=== PATIENT | male | born 1965 | race African-American/Black ===

== ENCOUNTER 2020-01-18 16:51 | Emergency (ER) | payer OTHER ==
[~2020-01-18] VITALS: Ht 167.6 cm; Wt 61.2 kg
[2020-01-18 17:00] VITALS: BP 128/98
[2020-01-18 17:10] VITALS: BP 128/98
--- NOTE | 2020-01-18 17:16 | NUR ---
ED Nurse Note: Patient left without being seen
== END 2020-01-18 17:15 | disposition left against medical advice (07) ==
LOC: EDSEX 16:51 → EDBD 16:51 → EMR 17:11
DX: R07.9 Chest pain, unspecified (principal); Z53.21 Procedure and treatment not carried out due to patient leaving prior to being seen by health care provider

== ENCOUNTER 2020-04-01 17:54 | Inpatient (IN) | payer OTHER ==
[~2020-04-01] VITALS: Ht 162.6 cm; Wt 60.8 kg
[2020-04-01] MEDS ORDERED: Cefepime HCl 1 GM in D5W 55 ML IVPB ONE (18:15)
--- NOTE | 2020-04-01 18:34 | Emergency Room Report ---
History of Present Illness General Chief Complaint: Chest Pain Source: Patient Present Illness HPI 53-year-old male with history of asthma, hypertension, diabetes and COPD here complaining of several days of chest pain, shortness of breath. Patient request a wheelchair to be wheeled in upon arrival. Patient is homeless. Obvious respiratory distress noted. Oxygenation within normal limit and patient appears to be afebrile. Speaks in full sentences. Denies abdominal pain, nausea vomiting diarrhea has not taken medication for symptom relief. Allergies: Coded Allergies: No Known Allergies (Unverified , 04/01/20) COVID-19 Screening Contact w/high risk pt: No Recent Travel to affected area: No Experienced COVID-19 symptoms?: Yes COVID-19 symptoms experienced: Cough COVID-19 Testing performed CALF SKINNER: No Patient History Past Medical History: see triage record Past Surgical History: none Pertinent Family History: none Immunizations: UTD Reviewed Nursing Documentation: PMH: Agreed; PSxH: Agreed Nursing Documentation-PMH Hx Hypertension: Yes Hx Asthma: Yes Hx Diabetes: Yes Review of Systems All Other Systems: negative except mentioned in HPI Physical Exam Vital Signs Date Time Temp Pulse Resp B/P (MAP) Pulse Ox O2 Delivery O2 Flow Rate FiO2 04/01/20 18:04 98.6 120 19 103/65 (78) 98 Room Air Sp02 EP Interpretation: reviewed, normal General Appearance: alert, mild distress Head: normocephalic, atraumatic Eyes: bilateral eye normal inspection, bilateral eye PERRL ENT: normal ENT inspection Neck: normal inspection Respiratory: normal inspection Cardiovascular #1: normal inspection Gastrointestinal: normal inspection Genitourinary: normal inspection Musculoskeletal: back normal Neurologic: alert, motor strength/tone normal, oriented x3, sensory intact, responsive, speech normal Psychiatric: judgement/insight normal, memory normal, mood/affect normal, no suicidal/homicidal ideation Skin: no rash Lymphatic: no adenopathy Medical Decision Making PA Attestation All my diagnosis and treatment plans were reviewed ad discussed with my supervising physician Dr. Crawford Diagnostic Impression: Primary Impression: Severe acute respiratory syndrome coronavirus 2 (SARS-CoV-2) infection ruled out Additional Impression: DKA (diabetic ketoacidoses) ER Course 53-year-old male with history of asthma, hypertension, diabetes and COPD here complaining of several days of chest pain, shortness of breath. Patient request a wheelchair to be wheeled in upon arrival. Patient is homeless. Obvious respiratory distress noted. Oxygenation within normal limit and patient appears to be afebrile. Speaks in full sentences. Denies abdominal pain, nausea vomiting diarrhea has not taken medication for symptom relief. Ddx considered but are not limited to: bronchitis, PNA, URI viral, bacterial bronchitis ,Respiratory distress covid rule out, DKA Vital signs: are WNL, pt. is afebrile H&PE are most consistent with: Respiratory distress covid rule out, DKA ORDERS: sepsis set, ED INTERVENTIONS: Cefepime, insulin, NS bolus Patient was admitted with diagnosis of respiratory distress, COVID rule out to Dr. Seo under supervision of : Ty alexis stable at time of admission EKG Diagnostic Results Rate: normal Rhythm: NSR ST Segments: no acute changes Other Impression No acute ST changes Chest X-Ray Diagnostic Results Chest X-Ray Diagnostic Results : Chest X-Ray Ordered: Yes # of Views/Limited/Complete: 1 View Indication: Chest Pain EP Interpretation: Yes PA Xray: Interpretation reviewed, by supervising MD, and agrees with findings. Interpretation: no consolidation, no effusion, no pneumothorax Impression: No acute disease Electronically Signed by: Tres Gillis PA-C Last Vital Signs Date Time Temp Pulse Resp B/P (MAP) Pulse Ox O2 Delivery O2 Flow Rate FiO2 04/01/20 18:04 98.6 120 19 103/65 (78) 98 Room Air Disposition: ADMITTED INPATIENT Condition: Stable Tres Rivera April 01, 2020 18:34
--- NOTE | 2020-04-01 18:45 | NUR ---
ED Nurse Note:pt. came from home with c/o chest pain for long time and SOB, hx of COPD,VSS, A/Ox4 ambulatory, sent blood and covid swab to labs ,given IV antibiotic
--- NOTE | 2020-04-01 18:59 | Diagnostic Imaging Report ---
EXAM: XR Chest, 1 View CLINICAL HISTORY: SOB TECHNIQUE: Frontal view of the chest. COMPARISON: No relevant prior studies available. FINDINGS: Lungs: Unremarkable. No consolidation. Pleural space: Unremarkable. No pneumothorax. Heart: Unremarkable. No cardiomegaly. Mediastinum: Unremarkable. Bones/joints: Unremarkable. IMPRESSION: No acute cardiopulmonary disease.
--- NOTE | 2020-04-01 19:05 | NUR ---
ED Nurse Note: RECEIVED REPORT FROM TOMY DIAZ. PT IS CALM AND RESTING.
[2020-04-01 19:23] LABS: BASOPHILS % (AUTO) 1.8 % (0.0-2.0); HEMATOCRIT 46.3 % (42.0-52.0); LYMPHOCYTES % (AUTO) 14.8 % (20.0-45.0); MEAN CORPUSCULAR VOLUME 92 FL (80-99); MONOCYTES % (AUTO) 4.1 % (1.0-10.0); NEUTROPHILS % (AUTO) 79.3 % (45.0-75.0); PLATELET COUNT 363 K/UL (150-450); RED BLOOD COUNT 5.04 M/UL (4.70-6.10); RED CELL DISTRIBUTION WIDTH 12.4 % (11.6-14.8); WHITE BLOOD COUNT 6.6 K/UL (4.8-10.8)
[2020-04-01 19:34] LABS: INR 0.9 (0.9-1.1); PARTIAL THROMBOPLASTIN TIME 23 SEC (23-33)
[2020-04-01 19:36] VITALS: BP 103/65
[2020-04-01 19:46] LABS: LACTATE DEHYDROGENASE 148 U/L (81-234)
[2020-04-01 19:51] LABS: ANION GAP 17 mmol/L (5-15); BLOOD UREA NITROGEN 32 mg/dL (7-18); CALCIUM 9.4 MG/DL (8.5-10.1); CARBON DIOXIDE 22 MMOL/L (21-32); CHLORIDE 85 MMOL/L (98-107); POTASSIUM 5.5 MMOL/L (3.5-5.1); SODIUM 124 MMOL/L (136-145)
[2020-04-01 19:56] LABS: ALANINE AMINOTRANSFERASE 20 U/L (12-78); ALBUMIN 3.3 G/DL (3.4-5.0); ALBUMIN/GLOBULIN RATIO 0.8 (1.0-2.7); ALKALINE PHOSPHATASE 93 U/L (46-116); ASPARTATE AMINO TRANSFERASE 12 U/L (15-37); BILIRUBIN,TOTAL 0.7 MG/DL (0.2-1.0); CKMB 1.1 NG/ML (0.0-3.6); CREATINE KINASE 57 U/L (26-308); FERRITIN 150 NG/ML (8-388)
[2020-04-01] MEDS ORDERED: Insulin Human Regular 100units/ml 3ml IV ONE (20:30)
--- NOTE | 2020-04-01 20:31 | NUR ---
ED Nurse Note: PT GIVEN INSULIN @ BS 953 FROM LAB. WILL RECHECK BS
[2020-04-01 21:59] VITALS: BP 127/87
--- NOTE | 2020-04-01 21:59 | History and Physical ---
History of Present Illness General Date patient seen: April 01, 2020 Reason for Hospitalization: Chest PainHyperglycemia Present Illness HPI Pt is a 53 YO M with HTN, HLD, DM II, COPD/Asthma presenting with chest pain, and lightheadedness. Patient is a very poor historian and tangential during conversation and unable to provide useful information. He states that he came to the ED today because of chest discomfort. Patient is asked to describe the nature of his chest pain but he continues to complain of how bad the hospital food is and is requesting for warm food. Patient reports taking insulin at home but does not know what kind. She does not know the name of her home medications. She reports of nausea, lightheadedness, and vomiting. No fever, chills, sick contacts or recent travel. On arrival to the ED, vitals significant or HR: 120 and BP: 103/65 and T:100.8. CMP significant for serum g with no evidence of DKA. She is admitted for further observation and medical management. Allergies: Coded Allergies: No Known Allergies (Unverified , 04/01/20) COVID-19 Screening Contact w/high risk pt: No Recent Travel to affected area: No Experienced COVID-19 symptoms?: Yes COVID-19 symptoms experienced: Cough Patient History Healthcare decision maker Resuscitation status Advanced Directive on File Review of Systems Constitutional: Reports: weakness Eye: Reports: no symptoms ENT: Reports: no symptoms Respiratory: Reports: cough, shortness of breath, wheezing Cardiovascular: Reports: chest pain Gastrointestinal: Reports: no symptoms Genitourinary: Reports: no symptoms Musculoskeletal: Reports: no symptoms Skin: Reports: no symptoms Psychiatric: Reports: no symptoms Neurological: Reports: no symptoms Endocrine: Reports: no symptoms Hematologic/Lymphatic: Reports: no symptoms Physical Exam General Appearance: no apparent distress, alert Lines, tubes and drains: peripheral HEENT: normocephalic, atraumatic Neck: non-tender Respiratory/Chest: chest wall non-tender, lungs clear, normal breath sounds, no respiratory distress Cardiovascular/Chest: normal peripheral pulses Abdomen: normal bowel sounds, soft, no organomegaly, no mass Extremities: normal range of motion Skin Exam: normal pigmentation Neurologic: alert, oriented x 3 Last 24 Hour Vital Signs Date Time Temp Pulse Resp B/P (MAP) Pulse Ox O2 Delivery O2 Flow Rate FiO2 04/01/20 19:36 98.6 115 19 103/65 98 Room Air 04/01/20 19:36 115 19 Room Air 04/01/20 18:04 98.6 120 19 103/65 (78) 98 Room Air Laboratory Tests Test 04/01/20 18:00 04/01/20 19:28 White Blood Count 6.6 K/UL (4.8-10.8) Red Blood Count 5.04 M/UL (4.70-6.10) Hemoglobin 15.0 G/DL (14.2-18.0) Hematocrit 46.3 % (42.0-52.0) Mean Corpuscular Volume 92 FL (80-99) Mean Corpuscular Hemoglobin 29.8 PG (27.0-31.0) Mean Corpuscular Hemoglobin Concent 32.5 G/DL (32.0-36.0) Red Cell Distribution Width 12.4 % (11.6-14.8) Platelet Count 363 K/UL (150-450) Mean Platelet Volume 6.7 FL (6.5-10.1) Neutrophils (%) (Auto) 79.3 % (45.0-75.0) H Lymphocytes (%) (Auto) 14.8 % (20.0-45.0) L Monocytes (%) (Auto) 4.1 % (1.0-10.0) Eosinophils (%) (Auto) 0.0 % (0.0-3.0) Basophils (%) (Auto) 1.8 % (0.0-2.0) Prothrombin Time 9.9 SEC (9.30-11.50) Prothromb Time International Ratio 0.9 (0.9-1.1) Activated Partial Thromboplast Time 23 SEC (23-33) D-Dimer < 0.19 mg/L FEU Sodium Level 124 MMOL/L (136-145) L Potassium Level 5.5 MMOL/L (3.5-5.1) H Chloride Level 85 MMOL/L (98-107) L Carbon Dioxide Level 22 MMOL/L (21-32) Anion Gap 17 mmol/L (5-15) H Blood Urea Nitrogen 32 mg/dL (7-18) H Creatinine 2.0 MG/DL (0.55-1.30) H Estimat Glomerular Filtration Rate 42.8 mL/min (>60) Glucose Level 953 MG/DL (74-106) *H Lactic Acid Level 1.80 mmol/L (0.4-2.0) Calcium Level 9.4 MG/DL (8.5-10.1) Ferritin 150 NG/ML (8-388) Total Bilirubin 0.7 MG/DL (0.2-1.0) Aspartate Amino Transf (AST/SGOT) 12 U/L (15-37) L Alanine Aminotransferase (ALT/SGPT) 20 U/L (12-78) Alkaline Phosphatase 93 U/L (46-116) Lactate Dehydrogenase 148 U/L (81-234) Total Creatine Kinase 57 U/L (26-308) Creatine Kinase MB 1.1 NG/ML (0.0-3.6) Creatine Kinase MB Relative Index 1.9 Troponin I 0.000 ng/mL (0.000-0.056) C-Reactive Protein, Quantitative < 0.4 mg/dL (0.00-0.90) Total Protein 7.2 G/DL (6.4-8.2) Albumin 3.3 G/DL (3.4-5.0) L Globulin 3.9 g/dL Albumin/Globulin Ratio 0.8 (1.0-2.7) L Arterial Blood pH 7.353 (7.350-7.450) Arterial Blood Partial Pressure CO2 36.5 mmHg (35.0-45.0) Arterial Blood Partial Pressure O2 94.5 mmHg (75.0-100.0) Arterial Blood HCO3 19.8 mmol/L (22.0-26.0) L Arterial Blood Oxygen Saturation 96.7 % (95-100) Arterial Blood Base Excess -5 (-2-2) L Randall Test Positive Height (Feet): 5 Height (Inches): 4.00 Weight (Pounds): 135 Assessment/Plan Assessment/Plan: Pt is a 53 YO M with HTN, HLD, DM II, COPD/Asthma presenting with chest pain, and lightheadedness. #Type II DM - Uncontrolled #Hyperglycemia #Medication non-compliance -serum g -s/p regular insulin in the ED. -Start insulin SS -Diabetic Diet -IVF -A1c -Importance of medication compliance emphasized. #Pseudohyponatremia -Corrected Na: 140 #[place] -Serum Cr: 2.0 in the setting of hyperglycemia and sepsis -Continue with IVF -Avoid nephrotoxins. -Dr. Seo of nephrology consulted. Appreciate further recommendations. #Atypical CP: -Trop x 1 and ECG unremarkable. -Continue to trend serum cardiac biomarkers -Cardiology consult. #Sepsis - likely 2/2 pulmonary source #Suspected COVID 19 infection #Asthma #COPD exacerbation -T: 100.8, Tachy: 120 -Start Rocephin and Azithromycin -Follow blood cultures -Prednisone 40 MG PO QD x 5 days -ID consultation in the A.M. #Essential hypertension -Metoprol 25 MG PO BID -CTM I spent~72~minutes on this patient's case, and 35~minutes was dedicated to counseling and/or care coordination. Case discussed with the RN. I spent an additional 32~min on chart review including prior consult notes, progress notes, procedures, imaging, labs hemodynamics and clinical documentation. Ramesh Macario M.D. April 01, 2020 21:58
--- NOTE | 2020-04-01 22:00 | NUR ---
ED Nurse Note: PT BS 507. JEANNETTE AWARE
[2020-04-01 22:14] LABS: APPEARANCE,URINE CLEAR; BILIRUBIN, URINE NEGATIVE (NEGATIVE); COLOR,URINE PALE YELLOW; GLUCOSE, URINE (UA) 4+ (NEGATIVE); KETONES,URINE 3+ (NEGATIVE); LEUKOCYTE ESTERASE ,URINE 2+ (NEGATIVE); NITRITE,URINE NEGATIVE (NEGATIVE); PH,URINE 5 (4.5-8.0); PROTEIN,URINE NEGATIVE (NEGATIVE); UROBILINOGEN,URINE NORMAL MG/DL (0.0-1.0)
--- NOTE | 2020-04-01 22:32 | NUR ---
Uzma cordova in [facility] - 04/02/20 at 0009 by [email or web address] ED Nurse Note: gave report to Benita DIAZ
--- NOTE | 2020-04-01 22:32 | NUR ---
ED Nurse Note: GAVE REPORT TO NICO DIAZ. PER NICO, PATIENT CAN GO UP AFTER 10 MIN.
--- NOTE | 2020-04-01 22:35 | NUR ---
ED Nurse Note: repeat blood drawn and sent to lab
--- NOTE | 2020-04-01 22:50 | NUR ---
ED Nurse Note: PT BELONGING INVENTORY COMPLETED AND SIGNED BY PATIENT. PATIENT REFUSED TO SEND $210 BUNN TO HOSPITAL [facility] AND WISHED TO KEEP. PATIENT REFUSED PRIMARY RN FROM DOING FURTHER BELONGING CHECK, STATING "I DO NOT WANT TO SHOW YOU INSIDE MY BAG"
[2020-04-01 23:00] VITALS: BP 135/88
--- NOTE | 2020-04-01 23:05 | NUR ---
TRANSFER TO FLOOR: Patient transferred to [facility] via rney in stable condition via transport 19 protocol as ordered, per dr. Hoskins . Report given to April DIAZ. Belongings sent with patient
[2020-04-01 23:09] LABS: ALANINE AMINOTRANSFERASE 21 U/L (12-78); ALBUMIN/GLOBULIN RATIO 0.9 (1.0-2.7); ALKALINE PHOSPHATASE 85 U/L (46-116); ANION GAP 11 mmol/L (5-15); ASPARTATE AMINO TRANSFERASE 12 U/L (15-37); BILIRUBIN,TOTAL 0.4 MG/DL (0.2-1.0); BLOOD UREA NITROGEN 26 mg/dL (7-18); CALCIUM 8.5 MG/DL (8.5-10.1); CARBON DIOXIDE 27 MMOL/L (21-32); CHLORIDE 96 MMOL/L (98-107); CREATININE 1.7 MG/DL (0.55-1.30); POTASSIUM 3.9 MMOL/L (3.5-5.1); SODIUM 134 MMOL/L (136-145)
--- NOTE | 2020-04-01 23:15 | NUR ---
NURSE NOTES: ADMITTED 53 YEAR OLD MALE TO ROOM 202 BED 2 VIA GURNEY FROM EMERGENCY DEPARTMENT. ADMITTING DIAGNOSIS/RESPIRATORY DISTRESS, COVID RULE OUT, UNDER THE CARE OF DR. CASTREJON. PATIENT AWAKE, VERBALLY RESPONSIVE, COMPLAINING OF PAIN ALL OVER/GENERALIZED 8/10. IV INTACT TO LEFT AC/GAUGE 20, NO REDNESS/SWELLING NOTED. NO SIGNS AND SYMPTOMS OF ACUTE CARDIO RESPIRATORY DISTRESS/SHORTNESS OF BREATH, DENIES CHEST PAIN, PLACED ON COUNTERSINKER. ABDOMEN SOFT/NON DISTENDED, AUDIBLE BOWEL SOUNDS, CONTINENT OF B/B, URINAL PROVIDED. ASSISTED WITH COMFORT CARE/ORIENTED TO ROOM/ENVIRONMENT. SIDE RAILS UP X2 FOR MOBILITY, BED IN LOWEST POSITION FOR SAFETY, ENCOURAGED PATIENT TO UTILIZE CALL LIGHT FOR ASSISTANCE. NAD.
[2020-04-02] VITALS: BP 115/69
[2020-04-02] MEDS ORDERED: Albuterol 90mcg Inhaler 8gm INH PRN (00:45)
[2020-04-02] MEDS ORDERED: Ipratropium Bromide Inhaler INH PRN (00:45)
[2020-04-02] MEDS ORDERED: Insulin Human Regular 100units/ml 3ml SUBQ SCH (00:45)
--- NOTE | 2020-04-02 01:10 | NUR ---
NURSE NOTES: DR. ELLIOTT CALLED WITH ADMITTING ORDERS, ORDERS NOTED AND CARRIED OUT..
[2020-04-02] MEDS ORDERED: Azithromycin 500 MG in D5W 275 ML IV ONE (01:15)
[2020-04-02] MEDS ORDERED: NovoLOG Insulin Flexpen SUBQ SCH (01:30)
[2020-04-02] MEDS: HYDROcodone/Acetamin 5/325 tab ORAL PRN (02:29)
[2020-04-02] MEDS: cefTRIAXone 1 GM in D5W 55 ML IVPB SCH (02:41)
--- NOTE | 2020-04-02 03:05 | NUR ---
NURSE NOTES: PATIENT REFUSED NORCO, WASTED WITH CHARGE NURSE.
[2020-04-02 04:00] VITALS: BP 123/85
[2020-04-02] MEDS: NovoLOG Insulin Flexpen SUBQ SCH ×4 (06:30→21:00)
--- NOTE | 2020-04-02 06:36 | NUR ---
NURSE NOTES: RESTING WELL, NO SIGNIFICANT CHANGE OF CONDITION NOTED THROUGHOUT THE NIGHT. SAFETY MAINTAINED. NAD.
--- NOTE | 2020-04-02 07:00 | NUR ---
NURSE NOTES: IV ANTIBIOTIC STARTED AT 0240, IV SITE LEFT AC/GAUGE 20, PATIENT BENDING ARM, REFUSE TO KEEP STRAIGHTENED, MULTIPLE VERBAL INTERVENTIONS FROM PRIMARY AND CHARGE NURSE-IV ANTIBIOTIC CONTINUE TO INFUSE AT 0700, PATIENT NOTED WITH EXCELLENT VEINS, MULTIPLE ATTEMPTS TO RESITE IV, PATIENT REFUSE, MD NOTIFIED. PATIENT ALSO NON COMPLIANT WITH BLOOD DRAW FROM PRIMARY NURSE AND GAS ENGINE OPERATOR GENERATORS, MADE AWARE.
--- NOTE | 2020-04-02 07:30 | NUR ---
HAND-OFF: Report given to JOE GREENFIELD.
--- NOTE | 2020-04-02 07:45 | NUR ---
NURSE NOTES: Received report from ADA Chen. Patient in bed resting, no active s/s cardiac, respiratory distress noticed at this time. Patient AOx3, on room air, IV on right AC 20G, asymptomatic, patent, intact. MD at the bedside, made aware patient refused EKG and lab at this time, will try again. Bed in lowest position, side rails upx2, call light within reach, bed alarm on. Will continue to monitor.
[2020-04-02 08:00] VITALS: BP 140/87
[2020-04-02] MEDS: Heparin 5000 units/ml inj SUBQ SCH ×2 (09:54→21:00)
--- NOTE | 2020-04-02 10:26 | General Progress Note ---
Assessment/Plan Assessment/Plan: Assessment #COPD Exacerbation; CXR w/o obvious infiltrate #R/O COVID, pending predictive markers #HHS w/ associated Osmotic Diuresis and Hypovolemia/Hyponatremia #Acute Renal Failure 2/2 Dehydration #HTN #Homelessness Plan Pending COVID, obtain predictive markers ( CRP, Ferritin, LDH, Ddimer) Prednisone PO taper Lynch Cx Weight based insulin dosing, goal blood sugar less than 180 while inpatient, insulin long acting Levemir PRN BP meds for now , once renal function improves add Dmitry-Inhibitor for renal protection NS @ 75 cc/hr s/p aggressive bolus in ER Social Work Consult DVT ppx Diet Subjective Allergies: Coded Allergies: No Known Allergies (Unverified , 04/01/20) Subjective Patient agitated; stating he is being "harrassed." Earlier was refusing insulin , agreed to receive IV. Still with elevated Blood sugar. Objective Last 24 Hour Vital Signs Date Time Temp Pulse Resp B/P (MAP) Pulse Ox O2 Delivery O2 Flow Rate FiO2 04/02/20 09:20 116 140/87 04/02/20 08:00 97.0 116 19 140/87 (104) 96 04/02/20 08:00 125 04/02/20 04:00 99.0 117 19 123/85 (98) 98 04/02/20 04:00 116 04/02/20 00:45 127 115/69 04/02/20 00:00 100.8 123 22 115/69 (84) 98 04/02/20 00:00 127 04/01/20 23:37 Room Air 04/01/20 23:05 98.5 121 18 135/88 99 Room Air 04/01/20 23:00 98.5 121 18 135/88 99 Room Air 04/01/20 21:59 98.3 117 19 127/87 98 Room Air 04/01/20 19:36 98.6 115 19 103/65 98 Room Air 04/01/20 19:36 115 19 Room Air 04/01/20 18:04 98.6 120 19 103/65 (78) 98 Room Air Intake and Output 04/01/20 04/02/20 19:00 07:00 Intake Total 1130 ml Balance 1130 ml Intake Oral 1000 ml IV Total 130 ml # Voids 5 Laboratory Tests 04/01/20 18:00: White Blood Count 6.6, Red Blood Count 5.04, Hemoglobin 15.0, Hematocrit 46.3, Mean Corpuscular Volume 92, Mean Corpuscular Hemoglobin 29.8, Mean Corpuscular Hemoglobin Concent 32.5, Red Cell Distribution Width 12.4, Platelet Count 363, Mean Platelet Volume 6.7, Neutrophils (%) (Auto) 79.3H, Lymphocytes (%) (Auto) 14.8L, Monocytes (%) (Auto) 4.1, Eosinophils (%) (Auto) 0.0, Basophils (%) (Auto ) 1.8, Prothrombin Time 9.9, Prothromb Time International Ratio 0.9, Activated Partial Thromboplast Time 23, D-Dimer < 0.19, Sodium Level 124L, Potassium Level 5.5H, Chloride Level 85L, Carbon Dioxide Level 22, Anion Gap 17H, Blood Urea Nitrogen 32H, Creatinine 2.0H, Estimat Glomerular Filtration Rate 42.8, Glucose Level 953*H, Lactic Acid Level 1.80, Calcium Level 9.4, Ferritin 150, Total Bilirubin 0.7, Aspartate Amino Transf (AST/SGOT) 12L, Alanine Aminotransferase (ALT/SGPT) 20, Alkaline Phosphatase 93, Lactate Dehydrogenase 148, Total Creatine Kinase 57, Creatine Kinase MB 1.1, Creatine Kinase MB Relative Index 1.9, Troponin I 0.000, C-Reactive Protein, Quantitative < 0.4, Total Protein 7.2, Albumin 3.3L, Globulin 3.9, Albumin/Globulin Ratio 0.8L 04/01/20 19:28: Arterial Blood pH 7.353, Arterial Blood Partial Pressure CO2 36.5, Arterial Blood Partial Pressure O2 94.5, Arterial Blood HCO3 19.8L, Arterial Blood Oxygen Saturation 96.7, Arterial Blood Base Excess -5L, Randall Test Positive 04/01/20 21:50: Urine Color Pale yellow, Urine Appearance Clear, Urine pH 5, Urine Specific [place] 1.010, Urine Protein Negative, Urine Glucose (UA) 4+H, Urine Ketones 3+H , Urine Blood Negative, Urine Nitrite Negative, Urine Bilirubin Negative, Urine Urobilinogen Normal, Urine Leukocyte Esterase 2+H, Urine RBC 0-2H, Urine WBC 0-2 , Urine Squamous Epithelial Cells None, Urine Bacteria Occasional, Urine Yeast ModerateH 04/01/20 22:35: Sodium Level 134#L, Potassium Level 3.9, Chloride Level 96L, Carbon Dioxide Level 27, Anion Gap 11, Blood Urea Nitrogen 26H, Creatinine 1.7H, Estimat Glomerular Filtration Rate 51.5, Glucose Level 521#*H, Calcium Level 8.5, Total Bilirubin 0.4, Aspartate Amino Transf (AST/SGOT) 12L, Alanine Aminotransferase ( ALT/SGPT) 21, Alkaline Phosphatase 85, Total Protein 6.5, Albumin 3.0L, Globulin 3.5, Albumin/Globulin Ratio 0.9L Height (Feet): 5 Height (Inches): 4.00 Weight (Pounds): 135 Marie Shoemaker D.O. April 02, 2020 10:26
--- NOTE | 2020-04-02 10:38 | NUR ---
CASE MANAGEMENT: INITIAL REVIEW 53YR OLD MALE WALKED INTO ER CC: CHEST PAIN AND COUCH X1 WEEK; SOB PMH: COPD; ASTHMA ; DM SI:SEVERE ACUTE RESPIRATORY SYNDROME 2 SARS-COV-2 INFECTION R/O . DKA . TACHY . 98.6 120 19 103/65 98% ON RA BGLU: 953 2ND BGLU 507 K+ 5.5 NA 124 CL 85 BUN/CREAT 32/2.0 GFR 42.8 AST 12 ABG: HCO3 19.8 UA- KETONES+BLOOD+ YEAST+ GLUCOSE+ IS:IVF NS BOLUS X2 IV NOVOLIN R X1 IV CEFEPIME X1 XRAY Chest 1v- No acute cardiopulmonary disease. COVID-19 - URINE CX- BLOOD CX X2- \: 2E TELE UNIT DCP: POSSIBLE HOMELESS PLAN: SW CONSULT TACHY- CONTROL HR CASE MANAGEMENT: REVIEW 04/02/20 SI:SEVERE ACUTE RESPIRATORY SYNDROME 2 SARS-COV-2 INFECTION R/O . DKA . TACHY . 100.8 123 22 115/69 98% ON RA BGLU: 953 2ND BGLU 507 K+ 5.5 NA 124 CL 85 BUN/CREAT 32/2.0 GFR 42.8 AST 12 IS:IV ROCEPHIN QD IV NS @75ML/HR NOVOLOG SQ QAC/HS PREDNISONE PO QD X5 DOSES LOPRESSOR PO BID HEPARIN SQ BID \: 2E TELE UNIT PLAN: TACHY- CONTROL HR CONTROL FEVER COVID 19 PENDING FOR DISCHARGE PLANNING
[2020-04-02] MEDS ORDERED: Levemir Flexpen SUBQ SCH (11:00)
--- NOTE | 2020-04-02 11:16 | Infectious Diseases Prog Note ---
Assessment/Plan Assessment/Plan Full consult to follow: A) 1) ? covid-19 virus infection, fevers 2) ? CAP - chest x-ray negative 3) CP 4) SOB P) 1) agree with ceftriaxone and azithromycin 2) f/u on covid19 pcr testing, f/u chest x-ray 3) thank you Subjective Allergies: Coded Allergies: No Known Allergies (Unverified , 04/01/20) Objective Vital Signs Last 24 Hour Vital Signs Date Time Temp Pulse Resp B/P (MAP) Pulse Ox O2 Delivery O2 Flow Rate FiO2 04/02/20 09:20 116 140/87 04/02/20 08:00 97.0 116 19 140/87 (104) 96 04/02/20 08:00 125 04/02/20 04:00 99.0 117 19 123/85 (98) 98 04/02/20 04:00 116 04/02/20 00:45 127 115/69 04/02/20 00:00 100.8 123 22 115/69 (84) 98 04/02/20 00:00 127 04/01/20 23:37 Room Air 04/01/20 23:05 98.5 121 18 135/88 99 Room Air 04/01/20 23:00 98.5 121 18 135/88 99 Room Air 04/01/20 21:59 98.3 117 19 127/87 98 Room Air 04/01/20 19:36 98.6 115 19 103/65 98 Room Air 04/01/20 19:36 115 19 Room Air 04/01/20 18:04 98.6 120 19 103/65 (78) 98 Room Air Height (Feet): 5 Height (Inches): 4.00 Weight (Pounds): 135 Microbiology Date/Time Source Procedure Growth Status 04/01/20 21:50 Urine,Clean Catch Urine Culture - Preliminary NO GROWTH Resulted Laboratory Tests Test 04/01/20 18:00 04/01/20 19:28 04/01/20 21:50 04/01/20 22:35 White Blood Count 6.6 K/UL (4.8-10.8) Red Blood Count 5.04 M/UL (4.70-6.10) Hemoglobin 15.0 G/DL (14.2-18.0) Hematocrit 46.3 % (42.0-52.0) Mean Corpuscular Volume 92 FL (80-99) Mean Corpuscular Hemoglobin 29.8 PG (27.0-31.0) Mean Corpuscular Hemoglobin Concent 32.5 G/DL (32.0-36.0) Red Cell Distribution Width 12.4 % (11.6-14.8) Platelet Count 363 K/UL (150-450) Mean Platelet Volume 6.7 FL (6.5-10.1) Neutrophils (%) (Auto) 79.3 % (45.0-75.0) H Lymphocytes (%) (Auto) 14.8 % (20.0-45.0) L Monocytes (%) (Auto) 4.1 % (1.0-10.0) Eosinophils (%) (Auto) 0.0 % (0.0-3.0) Basophils (%) (Auto) 1.8 % (0.0-2.0) Prothrombin Time 9.9 SEC (9.30-11.50) Prothromb Time International Ratio 0.9 (0.9-1.1) Activated Partial Thromboplast Time 23 SEC (23-33) D-Dimer < 0.19 mg/L FEU Sodium Level 124 MMOL/L (136-145) L 134 MMOL/L (136-145) #L Potassium Level 5.5 MMOL/L (3.5-5.1) H 3.9 MMOL/L (3.5-5.1) Chloride Level 85 MMOL/L (98-107) L 96 MMOL/L (98-107) L Carbon Dioxide Level 22 MMOL/L (21-32) 27 MMOL/L (21-32) Anion Gap 17 mmol/L (5-15) H 11 mmol/L (5-15) Blood Urea Nitrogen 32 mg/dL (7-18) H 26 mg/dL (7-18) H Creatinine 2.0 MG/DL (0.55-1.30) H 1.7 MG/DL (0.55-1.30) H Estimat Glomerular Filtration Rate 42.8 mL/min (>60) 51.5 mL/min (>60) Glucose Level 953 MG/DL (74-106) *H 521 MG/DL (74-106) #*H Lactic Acid Level 1.80 mmol/L (0.4-2.0) Calcium Level 9.4 MG/DL (8.5-10.1) 8.5 MG/DL (8.5-10.1) Ferritin 150 NG/ML (8-388) Total Bilirubin 0.7 MG/DL (0.2-1.0) 0.4 MG/DL (0.2-1.0) Aspartate Amino Transf (AST/SGOT) 12 U/L (15-37) L 12 U/L (15-37) L Alanine Aminotransferase (ALT/SGPT) 20 U/L (12-78) 21 U/L (12-78) Alkaline Phosphatase 93 U/L (46-116) 85 U/L (46-116) Lactate Dehydrogenase 148 U/L (81-234) Total Creatine Kinase 57 U/L (26-308) Creatine Kinase MB 1.1 NG/ML (0.0-3.6) Creatine Kinase MB Relative Index 1.9 Troponin I 0.000 ng/mL (0.000-0.056) C-Reactive Protein, Quantitative < 0.4 mg/dL (0.00-0.90) Total Protein 7.2 G/DL (6.4-8.2) 6.5 G/DL (6.4-8.2) Albumin 3.3 G/DL (3.4-5.0) L 3.0 G/DL (3.4-5.0) L Globulin 3.9 g/dL 3.5 g/dL Albumin/Globulin Ratio 0.8 (1.0-2.7) L 0.9 (1.0-2.7) L Arterial Blood pH 7.353 (7.350-7.450) Arterial Blood Partial Pressure CO2 36.5 mmHg (35.0-45.0) Arterial Blood Partial Pressure O2 94.5 mmHg (75.0-100.0) Arterial Blood HCO3 19.8 mmol/L (22.0-26.0) L Arterial Blood Oxygen Saturation 96.7 % (95-100) Arterial Blood Base Excess -5 (-2-2) L Randall Test Positive Urine Color Pale yellow Urine Appearance Clear Urine pH 5 (4.5-8.0) Urine Specific [place] 1.010 (1.005-1.035) Urine Protein Negative (NEGATIVE) Urine Glucose (UA) 4+ (NEGATIVE) H Urine Ketones 3+ (NEGATIVE) H Urine Blood Negative (NEGATIVE) Urine Nitrite Negative (NEGATIVE) Urine Bilirubin Negative (NEGATIVE) Urine Urobilinogen Normal MG/DL (0.0-1.0) Urine Leukocyte Esterase 2+ (NEGATIVE) H Urine RBC 0-2 /HPF (0 - 0) H Urine WBC 0-2 /HPF (0 - 0) Urine Squamous Epithelial Cells None /LPF (NONE/OCC) Urine Bacteria Occasional /HPF (NONE) Urine Yeast Moderate /HPF (NONE) H Current Medications Medications (Trade) Dose Ordered Sig/Alejandra Route PRN Reason Start Time Stop Time Status Last Admin Dose Admin Acetaminophen (Tylenol) 650 mg Q6H PRN ORAL Mild Pain (Pain Scale 1-3) 04/02/20 00:45 05/02/20 00:44 Acetaminophen (Tylenol) 650 mg Q6H PRN ORAL Temp >100.5 04/02/20 00:45 05/02/20 00:44 Acetaminophen/ Hydrocodone Bitart ([place] 5/325) 1 tab Q6H PRN ORAL For Pain 04/02/20 00:45 04/09/20 00:44 Albuterol Sulfate (Proventil MDI) 2 puff Q8H PRN INH Shortness of Breath 04/02/20 00:45 07/01/20 00:44 Azithromycin 250 mg/Dextrose 275 ml @ 275 mls/hr Q24H IV 04/03/20 01:00 04/08/20 00:59 Ceftriaxone Sodium 1 gm/ Dextrose 55 ml @ 110 mls/hr Q24H IVPB 04/02/20 02:00 04/06/20 01:59 04/02/20 02:41 Dextrose (Dextrose 50%) 25 ml Q30M PRN IV Hypoglycemia 04/02/20 00:45 07/01/20 00:44 Dextrose (Dextrose 50%) 50 ml Q30M PRN IV Hypoglycemia 04/02/20 00:45 07/01/20 00:44 Heparin Sodium (Porcine) (Heparin 5000 units/ml) 5,000 units EVERY 12 HOURS SUBQ 04/02/20 09:00 05/17/20 08:59 04/02/20 09:54 Insulin Aspart (NovoLOG) BEFORE MEALS AND HS SUBQ 04/02/20 06:30 07/01/20 06:29 04/02/20 06:30 Insulin Detemir (Levemir) 18 units DAILY SUBQ 04/02/20 11:00 07/01/20 10:59 Ipratropium [place] (Atrovent Inh) 2 puffs Q8H PRN INH WHEEZING 04/02/20 00:45 05/02/20 00:44 Metoprolol Tartrate (Lopressor) 25 mg Q12HR ORAL 04/02/20 09:00 07/01/20 08:59 04/02/20 09:20 Prednisone (predniSONE) 10 mg DAILY ORAL 04/03/20 09:00 05/03/20 08:59 Sodium Chloride 1,000 ml @ 75 mls/hr [id number] IV 04/02/20 00:45 05/02/20 00:44 04/02/20 00:45 Liv Galloway MD April 02, 2020 11:16
[2020-04-02 12:00] VITALS: BP 124/83
--- NOTE | 2020-04-02 12:00 | Consultation ---
DATE OF CONSULTATION: 04/02/2020 PULMONARY CONSULTATION CONSULTING PHYSICIAN: Star Baxter MD. HISTORY OF PRESENT ILLNESS: This is a 53-year-old male, who was admitted to the hospital with shortness of breath. He is a homeless male with history of COPD and asthma, who came to the hospital with shortness of breath and chest pain. The patient also requested a wheelchair on arrival. He was admitted to the hospital for subsequent management and care. PAST MEDICAL HISTORY: Notable for COPD, homeless situation, hyperglycemia, renal failure, hypertension. CURRENT MEDICATIONS: Reviewed and reconciled. He is currently on prednisone, metoprolol, insulin, IV fluids, antibiotics. REVIEW OF SYSTEMS: Denies any headaches, hematemesis, melena, or hematochezia. PHYSICAL EXAMINATION: VITAL SIGNS: Blood pressure is 140/80, heart rate 110, respiratory rate 18, afebrile. GENERAL: Reveals a 53-year-old male. HEENT: Unremarkable. CHEST: Clear breath sounds bilaterally. ABDOMEN: Soft. EXTREMITIES: There is no edema. NEUROLOGIC: Nonfocal. LABORATORY DATA: Laboratory testing at this time shows normal CBC with BMP showing sodium 134, creatinine is 1.7, today glucose 521. IMPRESSION: 1. Exacerbation of COPD. 2. Hyperglycemia. 3. Hypertension. 4. Homeless. 5. Renal failure. DISCUSSION: We will decrease steroids rapidly given his hyperglycemia. We will follow as corrugator. Order oxygen. Pulmonary hygiene. Rule out COVID-19. We will follow. Star Baxter M.D. DR: YUNG JOB#: [id number] CC:
--- NOTE | 2020-04-02 12:10 | NUR ---
NURSE NOTES: Patient blood sugar checked 576, explained BS very high need insulin. After given Levemir, patient refused to get Novolog. Patient agitated, threatening staff members to get out of the room.
--- NOTE | 2020-04-02 12:35 | NUR ---
NURSE NOTES: Paged Dr. Shoemaker regarding blood sugar level, per NPO at this time until patient gets treatment. MD made aware patient refusing EKG, monitoring tech, Lab. Per 6 unit insulin IV once, re-check BS in one hour. Order noted, entered, carried out. Will continue to monitor.
[2020-04-02] MEDS: Insulin Human Regular 100units/ml 3ml IV ONE ×2 (13:00→13:28)
--- NOTE | 2020-04-02 13:46 | NUR ---
NURSE NOTES: 2 RN , CN tried, patient refused IVP insulin. Will page Dr. Shoemaker.
--- NOTE | 2020-04-02 14:09 | Cardiac Electrophysiology PN ---
Subjective Subjective Seen and examined Objective Last 24 Hour Vital Signs Date Time Temp Pulse Resp B/P (MAP) Pulse Ox O2 Delivery O2 Flow Rate FiO2 04/02/20 09:20 116 140/87 04/02/20 09:00 Room Air 04/02/20 08:00 97.0 116 19 140/87 (104) 96 04/02/20 08:00 125 04/02/20 04:00 99.0 117 19 123/85 (98) 98 04/02/20 04:00 116 04/02/20 00:45 127 115/69 04/02/20 00:00 100.8 123 22 115/69 (84) 98 04/02/20 00:00 127 04/01/20 23:37 Room Air 04/01/20 23:05 98.5 121 18 135/88 99 Room Air 04/01/20 23:00 98.5 121 18 135/88 99 Room Air 04/01/20 21:59 98.3 117 19 127/87 98 Room Air 04/01/20 19:36 98.6 115 19 103/65 98 Room Air 04/01/20 19:36 115 19 Room Air 04/01/20 18:04 98.6 120 19 103/65 (78) 98 Room Air Intake and Output 04/01/20 04/02/20 19:00 07:00 Intake Total 1130 ml Balance 1130 ml Intake Oral 1000 ml IV Total 130 ml # Voids 5 Laboratory Tests Test 04/01/20 18:00 04/01/20 19:28 04/01/20 21:50 04/01/20 22:35 White Blood Count 6.6 K/UL (4.8-10.8) Red Blood Count 5.04 M/UL (4.70-6.10) Hemoglobin 15.0 G/DL (14.2-18.0) Hematocrit 46.3 % (42.0-52.0) Mean Corpuscular Volume 92 FL (80-99) Mean Corpuscular Hemoglobin 29.8 PG (27.0-31.0) Mean Corpuscular Hemoglobin Concent 32.5 G/DL (32.0-36.0) Red Cell Distribution Width 12.4 % (11.6-14.8) Platelet Count 363 K/UL (150-450) Mean Platelet Volume 6.7 FL (6.5-10.1) Neutrophils (%) (Auto) 79.3 % (45.0-75.0) H Lymphocytes (%) (Auto) 14.8 % (20.0-45.0) L Monocytes (%) (Auto) 4.1 % (1.0-10.0) Eosinophils (%) (Auto) 0.0 % (0.0-3.0) Basophils (%) (Auto) 1.8 % (0.0-2.0) Prothrombin Time 9.9 SEC (9.30-11.50) Prothromb Time International Ratio 0.9 (0.9-1.1) Activated Partial Thromboplast Time 23 SEC (23-33) D-Dimer < 0.19 mg/L FEU Sodium Level 124 MMOL/L (136-145) L 134 MMOL/L (136-145) #L Potassium Level 5.5 MMOL/L (3.5-5.1) H 3.9 MMOL/L (3.5-5.1) Chloride Level 85 MMOL/L (98-107) L 96 MMOL/L (98-107) L Carbon Dioxide Level 22 MMOL/L (21-32) 27 MMOL/L (21-32) Anion Gap 17 mmol/L (5-15) H 11 mmol/L (5-15) Blood Urea Nitrogen 32 mg/dL (7-18) H 26 mg/dL (7-18) H Creatinine 2.0 MG/DL (0.55-1.30) H 1.7 MG/DL (0.55-1.30) H Estimat Glomerular Filtration Rate 42.8 mL/min (>60) 51.5 mL/min (>60) Glucose Level 953 MG/DL (74-106) *H 521 MG/DL (74-106) #*H Lactic Acid Level 1.80 mmol/L (0.4-2.0) Calcium Level 9.4 MG/DL (8.5-10.1) 8.5 MG/DL (8.5-10.1) Ferritin 150 NG/ML (8-388) Total Bilirubin 0.7 MG/DL (0.2-1.0) 0.4 MG/DL (0.2-1.0) Aspartate Amino Transf (AST/SGOT) 12 U/L (15-37) L 12 U/L (15-37) L Alanine Aminotransferase (ALT/SGPT) 20 U/L (12-78) 21 U/L (12-78) Alkaline Phosphatase 93 U/L (46-116) 85 U/L (46-116) Lactate Dehydrogenase 148 U/L (81-234) Total Creatine Kinase 57 U/L (26-308) Creatine Kinase MB 1.1 NG/ML (0.0-3.6) Creatine Kinase MB Relative Index 1.9 Troponin I 0.000 ng/mL (0.000-0.056) C-Reactive Protein, Quantitative < 0.4 mg/dL (0.00-0.90) Total Protein 7.2 G/DL (6.4-8.2) 6.5 G/DL (6.4-8.2) Albumin 3.3 G/DL (3.4-5.0) L 3.0 G/DL (3.4-5.0) L Globulin 3.9 g/dL 3.5 g/dL Albumin/Globulin Ratio 0.8 (1.0-2.7) L 0.9 (1.0-2.7) L Arterial Blood pH 7.353 (7.350-7.450) Arterial Blood Partial Pressure CO2 36.5 mmHg (35.0-45.0) Arterial Blood Partial Pressure O2 94.5 mmHg (75.0-100.0) Arterial Blood HCO3 19.8 mmol/L (22.0-26.0) L Arterial Blood Oxygen Saturation 96.7 % (95-100) Arterial Blood Base Excess -5 (-2-2) L Randall Test Positive Urine Color Pale yellow Urine Appearance Clear Urine pH 5 (4.5-8.0) Urine Specific [place] 1.010 (1.005-1.035) Urine Protein Negative (NEGATIVE) Urine Glucose (UA) 4+ (NEGATIVE) H Urine Ketones 3+ (NEGATIVE) H Urine Blood Negative (NEGATIVE) Urine Nitrite Negative (NEGATIVE) Urine Bilirubin Negative (NEGATIVE) Urine Urobilinogen Normal MG/DL (0.0-1.0) Urine Leukocyte Esterase 2+ (NEGATIVE) H Urine RBC 0-2 /HPF (0 - 0) H Urine WBC 0-2 /HPF (0 - 0) Urine Squamous Epithelial Cells None /LPF (NONE/OCC) Urine Bacteria Occasional /HPF (NONE) Urine Yeast Moderate /HPF (NONE) H Microbiology Date/Time Source Procedure Growth Status 04/01/20 21:50 Urine,Clean Catch Urine Culture - Preliminary NO GROWTH Resulted Dirk Velazquez MD April 02, 2020 14:09
--- NOTE | 2020-04-02 14:15 | NUR ---
NURSE NOTES: Dr. Shoemaker and Dr. Velazquez at the nursing station, made aware patient refused medication, all procedure, lab. No new order received at this time. Will continue to monitor.
[2020-04-02] MEDS ORDERED: Insulin Human Regular 100units/ml 3ml IV SCH (15:15)
[2020-04-02 16:00] VITALS: BP 132/80
--- NOTE | 2020-04-02 16:00 | NUR ---
NURSE NOTES: Patient refused to be taking care of by his previous nurse so I took over, Patient still refusing nursing care. Md put him on NPO because of his high sugar, Patient stated he is not taking any medication until he gets his food.
--- NOTE | 2020-04-02 16:00 | NUR ---
HAND-OFF: Report given to JOE Ny. Endorsed plan of care.
--- NOTE | 2020-04-02 17:00 | NUR ---
NURSE NOTES: Patient BS is 523, Gave him Insulin, Paged MD, awaiting hydroelectric station operator back.
--- NOTE | 2020-04-02 19:34 | NUR ---
HAND-OFF: Report given to Stephanie/RN, Patient is in stable condition, Endorsed plan of care.
--- NOTE | 2020-04-02 19:50 | NUR ---
NURSE NOTES: Received pt from JOE Staples. pt asleep but easily arroused. Bed in lowest position. Call light within reach. Will continue to monitor.
[2020-04-02 20:29] VITALS: BP 114/77
[2020-04-03] VITALS: BP 119/68
[2020-04-03] MEDS ORDERED: Azithromycin 250 MG in D5W 275 ML IV SCH (01:00)
[2020-04-03] MEDS: cefTRIAXone 1 GM in D5W 55 ML IVPB SCH (02:00)
--- NOTE | 2020-04-03 03:23 | NUR ---
NURSE NOTES: Called and notified Dr. Hoskins and Dr. Berger about pts refusal for IV and IV antibiotics via voicemail. Awaiting call back.
[2020-04-03] MEDS: NovoLOG Insulin Flexpen SUBQ SCH ×6 (06:30→20:42)
--- NOTE | 2020-04-03 07:17 | NUR ---
NURSE NOTES: Called and left a callback number with Dr. Hoskins group regarding pts critically high BG. Awaiting call back. Pt asymptomatic
--- NOTE | 2020-04-03 07:30 | NUR ---
HAND-OFF: Report given to JOE Fortune. Pt stable.
[2020-04-03 07:53] LABS: BASOPHILS % (AUTO) 2.3 % (0.0-2.0); EOSINOPHILS % (AUTO) 0.4 % (0.0-3.0); HEMATOCRIT 45.4 % (42.0-52.0); HEMOGLOBIN 16.1 G/DL (14.2-18.0); LYMPHOCYTES % (AUTO) 26.9 % (20.0-45.0); MEAN CORPUSCULAR VOLUME 84 FL (80-99); NEUTROPHILS % (AUTO) 66.4 % (45.0-75.0); PLATELET COUNT 394 K/UL (150-450); RED BLOOD COUNT 5.39 M/UL (4.70-6.10); RED CELL DISTRIBUTION WIDTH 10.7 % (11.6-14.8); WHITE BLOOD COUNT 7.1 K/UL (4.8-10.8)
[2020-04-03 08:00] VITALS: BP 124/89
[2020-04-03 08:09] LABS: ALANINE AMINOTRANSFERASE 23 U/L (12-78); ALBUMIN 3.5 G/DL (3.4-5.0); ALBUMIN/GLOBULIN RATIO 0.8 (1.0-2.7); ALKALINE PHOSPHATASE 100 U/L (46-116); ANION GAP 9 mmol/L (5-15); ASPARTATE AMINO TRANSFERASE 23 U/L (15-37); BILIRUBIN,TOTAL 0.5 MG/DL (0.2-1.0); BLOOD UREA NITROGEN 18 mg/dL (7-18); CALCIUM 9.4 MG/DL (8.5-10.1); CARBON DIOXIDE 28 MMOL/L (21-32); CHLORIDE 89 MMOL/L (98-107); CREATININE 1.4 MG/DL (0.55-1.30); PHOSPHORUS 3.2 MG/DL (2.5-4.9); POTASSIUM 4.2 MMOL/L (3.5-5.1); SODIUM 125 MMOL/L (136-145)
[2020-04-03] MEDS: Heparin 5000 units/ml inj SUBQ SCH ×2 (09:30→20:19)
[2020-04-03] MEDS: Levemir Flexpen SUBQ SCH ×2 (09:31→16:27)
--- NOTE | 2020-04-03 10:07 | Pulmonology Progress Note ---
Subjective Interval Events: Feeling better Constitutional: Reports: no symptoms HEENT: Repors: no symptoms Respiratory: Reports: no symptoms Cardiovascular: Reports: no symptoms Gastrointestinal/Abdominal: Reports: no symptoms Allergies: Coded Allergies: No Known Allergies (Unverified , 04/01/20) Objective Last 24 Hour Vital Signs Date Time Temp Pulse Resp B/P (MAP) Pulse Ox O2 Delivery O2 Flow Rate FiO2 04/03/20 09:30 120 124/89 04/03/20 04:00 106 04/03/20 00:00 101 119/68 (85) 98 04/03/20 00:00 105 04/02/20 21:39 112 114/77 04/02/20 21:00 Room Air 04/02/20 20:29 112 114/77 (89) 98 04/02/20 16:00 96.6 95 18 132/80 (97) 95 04/02/20 16:00 108 04/02/20 12:00 96.8 96 19 124/83 (97) 95 Intake and Output 04/02/20 04/03/20 19:00 07:00 Intake Total 640 ml Output Total 6 ml Balance 640 ml -6 ml Intake Oral 640 ml Output Urine Total 6 ml # Voids 2 # Bowel Movements 1 1 General Appearance: no acute distress HEENT: normocephalic Respiratory: chest wall non-tender, lungs clear Cardiovascular: normal peripheral pulses, normal rate Abdomen: normal bowel sounds Microbiology Date/Time Source Procedure Growth Status 04/01/20 19:10 Blood Blood Culture - Preliminary NO GROWTH AFTER 24 HOURS Resulted 04/01/20 19:00 Blood Blood Culture - Preliminary NO GROWTH AFTER 24 HOURS Resulted 04/01/20 21:50 Urine,Clean Catch Urine Culture - Preliminary Yeast Species Resulted Laboratory Tests 04/03/20 07:00: White Blood Count 7.1, Red Blood Count 5.39, Hemoglobin 16.1, Hematocrit 45.4, Mean Corpuscular Volume 84, Mean Corpuscular Hemoglobin 30.0, Mean Corpuscular Hemoglobin Concent 35.6, Red Cell Distribution Width 10.7L, Platelet Count 394, Mean Platelet Volume 5.2L, Neutrophils (%) (Auto) 66.4, Lymphocytes (%) (Auto) 26.9, Monocytes (%) (Auto) 4.0, Eosinophils (%) (Auto) 0.4, Basophils (%) (Auto ) 2.3H, Sodium Level 125L, Potassium Level 4.2, Chloride Level 89L, Carbon Dioxide Level 28, Anion Gap 9, Blood Urea Nitrogen 18, Creatinine 1.4H, Estimat Glomerular Filtration Rate > 60, Glucose Level 775#*H, Calcium Level 9.4, Phosphorus Level 3.2, Magnesium Level 2.2, Total Bilirubin 0.5, Aspartate Amino Transf (AST/SGOT) 23, Alanine Aminotransferase (ALT/SGPT) 23, Alkaline Phosphatase 100, Troponin I 0.009, Total Protein 7.9, Albumin 3.5, Globulin 4.4 , Albumin/Globulin Ratio 0.8L Current Medications Medications (Trade) Dose Ordered Sig/Alejandra Route PRN Reason Start Time Stop Time Status Last Admin Dose Admin Acetaminophen (Tylenol) 650 mg Q6H PRN ORAL Mild Pain (Pain Scale 1-3) 04/02/20 00:45 05/02/20 00:44 Acetaminophen (Tylenol) 650 mg Q6H PRN ORAL Temp >100.5 04/02/20 00:45 05/02/20 00:44 Acetaminophen/ Hydrocodone Bitart ([place] 5/325) 1 tab Q6H PRN ORAL For Pain 04/02/20 00:45 04/09/20 00:44 Albuterol Sulfate (Proventil MDI) 2 puff Q8H PRN INH Shortness of Breath 04/02/20 00:45 07/01/20 00:44 Azithromycin 250 mg/Dextrose 275 ml @ 275 mls/hr Q24H IV 04/03/20 01:00 04/08/20 00:59 Ceftriaxone Sodium 1 gm/ Dextrose 55 ml @ 110 mls/hr Q24H IVPB 04/02/20 02:00 04/06/20 01:59 04/02/20 02:41 Dextrose (Dextrose 50%) 25 ml Q30M PRN IV Hypoglycemia 04/02/20 00:45 07/01/20 00:44 Dextrose (Dextrose 50%) 50 ml Q30M PRN IV Hypoglycemia 04/02/20 00:45 07/01/20 00:44 Heparin Sodium (Porcine) (Heparin 5000 units/ml) 5,000 units EVERY 12 HOURS SUBQ 04/02/20 09:00 05/17/20 08:59 04/03/20 09:30 Insulin Aspart (NovoLOG) BEFORE MEALS AND HS SUBQ 04/02/20 06:30 07/01/20 06:29 04/03/20 06:30 Insulin Detemir (Levemir) 20 units BID SUBQ 04/03/20 09:00 07/01/20 10:59 04/03/20 09:31 Ipratropium [place] (Atrovent Inh) 2 puffs Q8H PRN INH WHEEZING 04/02/20 00:45 05/02/20 00:44 Metoprolol Tartrate (Lopressor) 25 mg Q12HR ORAL 04/02/20 09:00 07/01/20 08:59 04/03/20 09:30 Sodium Chloride 1,000 ml @ 75 mls/hr [id number] IV 04/02/20 00:45 05/02/20 00:44 04/02/20 00:45 Assessment/Plan Assessment/Plan IMPRESSION: 1. Exacerbation of COPD. 2. Hyperglycemia. 3. Hypertension. 4. Homeless. 5. Renal failure. DISCUSSION: No longer on steroids I will follow as commercial project manager. Continue O2 prn; currently saturating well on RA Await COVID-19 pcr. Chuyita Flaherty Omar Syed MD April 03, 2020 10:07
--- NOTE | 2020-04-03 10:36 | NUR ---
NURSE NOTES: during morning rounding the pt was in bed covered in food, pt was very disruptive and non-compliant with treatment. She had pulled IV out, blood sugar was over 500 this morning, room had to be cleaned, hamper was full along with trash. Food was brought in after the room was cleaned, pt kept trying argue about her clothing, bed was cleaned with new sheets, Pt denies pain, Ox4, after discussion of treatment and plan of care pt was able to be more compliant. IV was established and trust regained with patient.
--- NOTE | 2020-04-03 10:53 | Diagnostic Imaging Report ---
EXAM: XR Chest, 1 View CLINICAL HISTORY: INFECT TECHNIQUE: Frontal view of the chest. COMPARISON: Chest radiograph on 04/01/2020 FINDINGS: Hardware: None. Lungs/pleura: Normal. No focal consolidation. No pleural effusion or pneumothorax. Heart/mediastinum: Normal. No cardiomegaly. Soft tissues: Unremarkable. Bones: No acute fracture. Upper abdomen: Normal. IMPRESSION: No acute disease identified.
[2020-04-03] MEDS ORDERED: cefTRIAXone 1 GM in D5W 55 ML IVPB SCH (11:00)
--- NOTE | 2020-04-03 11:57 | Internal Med Progress Note ---
Subjective Date of Service: April 03, 2020 Physician Name Marie Shoemaker Attending Physician Kanu Hoskins MD Current Medications Medications (Trade) Dose Ordered Sig/Alejandra Route PRN Reason Start Time Stop Time Status Last Admin Dose Admin Acetaminophen (Tylenol) 650 mg Q6H PRN ORAL Mild Pain (Pain Scale 1-3) 04/02/20 00:45 05/02/20 00:44 Acetaminophen (Tylenol) 650 mg Q6H PRN ORAL Temp >100.5 04/02/20 00:45 05/02/20 00:44 Acetaminophen/ Hydrocodone Bitart ([place] 5/325) 1 tab Q6H PRN ORAL For Pain 04/02/20 00:45 04/09/20 00:44 Albuterol Sulfate (Proventil MDI) 2 puff Q8H PRN INH Shortness of Breath 04/02/20 00:45 07/01/20 00:44 Aspirin (ASA) 81 mg DAILY ORAL 04/04/20 09:00 05/19/20 08:59 Azithromycin 250 mg/Dextrose 275 ml @ 275 mls/hr Q24H IV 04/03/20 01:00 04/08/20 00:59 Ceftriaxone Sodium 1 gm/ Dextrose 55 ml @ 110 mls/hr Q24H IVPB 04/03/20 11:00 04/10/20 10:59 04/03/20 11:12 Dextrose (Dextrose 50%) 25 ml Q30M PRN IV Hypoglycemia 04/02/20 00:45 07/01/20 00:44 Dextrose (Dextrose 50%) 50 ml Q30M PRN IV Hypoglycemia 04/02/20 00:45 07/01/20 00:44 Heparin Sodium (Porcine) (Heparin 5000 units/ml) 5,000 units EVERY 12 HOURS SUBQ 04/02/20 09:00 05/17/20 08:59 04/03/20 09:30 Insulin Aspart (NovoLOG) BEFORE MEALS AND HS SUBQ 04/02/20 06:30 07/01/20 06:29 04/03/20 11:49 Insulin Detemir (Levemir) 20 units BID SUBQ 04/03/20 09:00 07/01/20 10:59 04/03/20 09:31 Insulin Human Regular (NovoLIN R) 10 units ONCE ONCE IV 04/03/20 11:45 04/03/20 11:46 UNV Ipratropium [place] (Atrovent Inh) 2 puffs Q8H PRN INH WHEEZING 04/02/20 00:45 05/02/20 00:44 Metoprolol Tartrate (Lopressor) 25 mg Q12HR ORAL 04/02/20 09:00 07/01/20 08:59 04/03/20 09:30 Sodium Chloride 1,000 ml @ 75 mls/hr [id number] IV 04/02/20 00:45 05/02/20 00:44 04/02/20 00:45 Sodium Chloride 1,000 ml @ 999 mls/hr Q1H1M ONCE IV 04/03/20 11:45 04/03/20 12:45 Allergies: Coded Allergies: No Known Allergies (Unverified , 04/01/20) Subjective Patients blood sugar is still very high with labs showing associated osmotic diuresis and hyponatremia; not bicarb is normal. Will give 10 units IV insulin, 1L NS bolus, increase IVF to 125 cc/hr. Consult to endocrine, d/c steroids. Await Covid. Patient continues to ask for more food. Objective Last Vital Signs Date Time Temp Pulse Resp B/P (MAP) Pulse Ox O2 Delivery O2 Flow Rate FiO2 04/03/20 10:31 110 04/03/20 09:30 124/89 04/03/20 09:00 Room Air 04/03/20 08:00 97.9 22 99 General Appearance: WD/WN, no apparent distress EENT: PERRL/EOMI Cardiovascular: normal rate, regular rhythm, regularly irregular Respiratory/Chest: lungs clear, normal breath sounds, no respiratory distress Abdomen: non tender, soft Neurologic: processing mgr II-XII grossly normal, oriented x 3 Skin: warm/dry Laboratory Tests Test 04/03/20 07:00 White Blood Count 7.1 K/UL (4.8-10.8) Red Blood Count 5.39 M/UL (4.70-6.10) Hemoglobin 16.1 G/DL (14.2-18.0) Hematocrit 45.4 % (42.0-52.0) Mean Corpuscular Volume 84 FL (80-99) Mean Corpuscular Hemoglobin 30.0 PG (27.0-31.0) Mean Corpuscular Hemoglobin Concent 35.6 G/DL (32.0-36.0) Red Cell Distribution Width 10.7 % (11.6-14.8) L Platelet Count 394 K/UL (150-450) Mean Platelet Volume 5.2 FL (6.5-10.1) L Neutrophils (%) (Auto) 66.4 % (45.0-75.0) Lymphocytes (%) (Auto) 26.9 % (20.0-45.0) Monocytes (%) (Auto) 4.0 % (1.0-10.0) Eosinophils (%) (Auto) 0.4 % (0.0-3.0) Basophils (%) (Auto) 2.3 % (0.0-2.0) H Sodium Level 125 MMOL/L (136-145) L Potassium Level 4.2 MMOL/L (3.5-5.1) Chloride Level 89 MMOL/L (98-107) L Carbon Dioxide Level 28 MMOL/L (21-32) Anion Gap 9 mmol/L (5-15) Blood Urea Nitrogen 18 mg/dL (7-18) Creatinine 1.4 MG/DL (0.55-1.30) H Estimat Glomerular Filtration Rate > 60 mL/min (>60) Glucose Level 775 MG/DL (74-106) #*H Calcium Level 9.4 MG/DL (8.5-10.1) Phosphorus Level 3.2 MG/DL (2.5-4.9) Magnesium Level 2.2 MG/DL (1.8-2.4) Total Bilirubin 0.5 MG/DL (0.2-1.0) Aspartate Amino Transf (AST/SGOT) 23 U/L (15-37) Alanine Aminotransferase (ALT/SGPT) 23 U/L (12-78) Alkaline Phosphatase 100 U/L (46-116) Troponin I 0.009 ng/mL (0.000-0.056) Total Protein 7.9 G/DL (6.4-8.2) Albumin 3.5 G/DL (3.4-5.0) Globulin 4.4 g/dL Albumin/Globulin Ratio 0.8 (1.0-2.7) L Microbiology Date/Time Source Procedure Growth Status 04/01/20 19:10 Blood Blood Culture - Preliminary NO GROWTH AFTER 24 HOURS Resulted 04/01/20 19:00 Blood Blood Culture - Preliminary NO GROWTH AFTER 24 HOURS Resulted 04/01/20 21:50 Urine,Clean Catch Urine Culture - Preliminary Yeast Species Resulted Intake and Output 04/02/20 04/03/20 19:00 07:00 Intake Total 640 ml Output Total 6 ml Balance 640 ml -6 ml Intake Oral 640 ml Output Urine Total 6 ml # Voids 2 # Bowel Movements 1 1 Assessment/Plan Assessment/Plan Assessment #HHS w/ associated Osmotic Diuresis and Hypovolemia/Hyponatremia #COPD Exacerbation; CXR w/o obvious infiltrate --> d/c steroids 2/2 hyperlgycemia #R/O COVID, predictive markers noted #Acute Renal Failure 2/2 Dehydration #HTN #Homelessness Plan Consult To endocrine Pending COVID, obtain predictive markers ( CRP, Ferritin, LDH, Ddimer) D/C steroids 2/2 hyperglycemia Lynch Cx Weight based insulin dosing, goal blood sugar less than 180 while inpatient, insulin long acting Levemir PRN BP meds for now , once renal function improves add Dmitry-Inhibitor for renal protection NS @ 125 cc/hr s/p aggressive bolus in ER Social Work Consult DVT ppx Diet 04/03: Consult endocrine, Increase levemir to 20 BID, Accuchecks Q4 hours while hyperglycemic, Give 10 units IV insulin one time now, monitor Bicarb, NS Bolus. Repeat BMP this evening Marie Shoemaker D.O. April 03, 2020 11:57
[2020-04-03 12:00] VITALS: BP 131/89
[2020-04-03] MEDS ORDERED: Insulin Human Regular 100units/ml 3ml IV SCH (12:30)
--- NOTE | 2020-04-03 14:58 | NUR ---
NURSE NOTES: 1300 insulin not given, AC lunch Novolog given, IVP insulin 10 unit given on 1307, BS rechecked 347.
--- NOTE | 2020-04-03 15:57 | Infectious Diseases Prog Note ---
Assessment/Plan Assessment/Plan Full consult to follow: A) 1) ? covid-19 virus infection, fevers 2) ? CAP - chest x-ray negative, ? uri/bronchitis 3) CP 4) SOB 5) fungal urine culture likely a contaminant P) 1) augmentin x 3 days 2) f/u on covid19 pcr testing 3) will f/u Subjective Allergies: Coded Allergies: No Known Allergies (Unverified , 04/01/20) Objective Vital Signs Last 24 Hour Vital Signs Date Time Temp Pulse Resp B/P (MAP) Pulse Ox O2 Delivery O2 Flow Rate FiO2 04/03/20 12:00 96.4 102 18 131/89 (103) 98 04/03/20 12:00 93 04/03/20 10:31 110 04/03/20 09:30 120 124/89 04/03/20 09:00 Room Air 04/03/20 08:00 97.9 117 22 124/89 (101) 99 04/03/20 04:00 106 04/03/20 00:00 101 119/68 (85) 98 04/03/20 00:00 105 04/02/20 21:39 112 114/77 04/02/20 21:00 Room Air 04/02/20 20:29 112 114/77 (89) 98 04/02/20 16:00 96.6 95 18 132/80 (97) 95 04/02/20 16:00 108 Height (Feet): 5 Height (Inches): 4.00 Weight (Pounds): 135 Microbiology Date/Time Source Procedure Growth Status 04/01/20 19:10 Blood Blood Culture - Preliminary NO GROWTH AFTER 24 HOURS Resulted 04/01/20 19:00 Blood Blood Culture - Preliminary NO GROWTH AFTER 24 HOURS Resulted 04/01/20 21:50 Urine,Clean Catch Urine Culture - Preliminary Yeast Species Resulted Laboratory Tests Test 04/03/20 07:00 White Blood Count 7.1 K/UL (4.8-10.8) Red Blood Count 5.39 M/UL (4.70-6.10) Hemoglobin 16.1 G/DL (14.2-18.0) Hematocrit 45.4 % (42.0-52.0) Mean Corpuscular Volume 84 FL (80-99) Mean Corpuscular Hemoglobin 30.0 PG (27.0-31.0) Mean Corpuscular Hemoglobin Concent 35.6 G/DL (32.0-36.0) Red Cell Distribution Width 10.7 % (11.6-14.8) L Platelet Count 394 K/UL (150-450) Mean Platelet Volume 5.2 FL (6.5-10.1) L Neutrophils (%) (Auto) 66.4 % (45.0-75.0) Lymphocytes (%) (Auto) 26.9 % (20.0-45.0) Monocytes (%) (Auto) 4.0 % (1.0-10.0) Eosinophils (%) (Auto) 0.4 % (0.0-3.0) Basophils (%) (Auto) 2.3 % (0.0-2.0) H Sodium Level 125 MMOL/L (136-145) L Potassium Level 4.2 MMOL/L (3.5-5.1) Chloride Level 89 MMOL/L (98-107) L Carbon Dioxide Level 28 MMOL/L (21-32) Anion Gap 9 mmol/L (5-15) Blood Urea Nitrogen 18 mg/dL (7-18) Creatinine 1.4 MG/DL (0.55-1.30) H Estimat Glomerular Filtration Rate > 60 mL/min (>60) Glucose Level 775 MG/DL (74-106) #*H Calcium Level 9.4 MG/DL (8.5-10.1) Phosphorus Level 3.2 MG/DL (2.5-4.9) Magnesium Level 2.2 MG/DL (1.8-2.4) Total Bilirubin 0.5 MG/DL (0.2-1.0) Aspartate Amino Transf (AST/SGOT) 23 U/L (15-37) Alanine Aminotransferase (ALT/SGPT) 23 U/L (12-78) Alkaline Phosphatase 100 U/L (46-116) Troponin I 0.009 ng/mL (0.000-0.056) Total Protein 7.9 G/DL (6.4-8.2) Albumin 3.5 G/DL (3.4-5.0) Globulin 4.4 g/dL Albumin/Globulin Ratio 0.8 (1.0-2.7) L Current Medications Medications (Trade) Dose Ordered Sig/Alejandra Route PRN Reason Start Time Stop Time Status Last Admin Dose Admin Acetaminophen (Tylenol) 650 mg Q6H PRN ORAL Mild Pain (Pain Scale 1-3) 04/02/20 00:45 05/02/20 00:44 Acetaminophen (Tylenol) 650 mg Q6H PRN ORAL Temp >100.5 04/02/20 00:45 05/02/20 00:44 Acetaminophen/ Hydrocodone Bitart ([place] 5/325) 1 tab Q6H PRN ORAL For Pain 04/02/20 00:45 04/09/20 00:44 Al Hydroxide/Mg Hydroxide (Myl[place]) 30 ml BIDPRN PRN ORAL upset stomach 04/03/20 13:45 05/03/20 13:44 Albuterol Sulfate (Proventil MDI) 2 puff Q8H PRN INH Shortness of Breath 04/02/20 00:45 07/01/20 00:44 Aspirin (ASA) 81 mg DAILY ORAL 04/04/20 09:00 05/19/20 08:59 Azithromycin 250 mg/Dextrose 275 ml @ 275 mls/hr Q24H IV 04/03/20 01:00 04/08/20 00:59 Ceftriaxone Sodium 1 gm/ Dextrose 55 ml @ 110 mls/hr Q24H IVPB 04/03/20 11:00 04/10/20 10:59 04/03/20 11:12 Dextrose (Dextrose 50%) 25 ml Q30M PRN IV Hypoglycemia 04/03/20 12:00 07/02/20 11:59 Dextrose (Dextrose 50%) 50 ml Q30M PRN IV Hypoglycemia 04/03/20 12:00 07/02/20 11:59 Famotidine (Pepcid I.v.) 20 mg BIDPRN PRN IVP upset stomach 04/03/20 13:45 05/03/20 13:44 04/03/20 13:49 Heparin Sodium (Porcine) (Heparin 5000 units/ml) 5,000 units EVERY 12 HOURS SUBQ 04/02/20 09:00 05/17/20 08:59 04/03/20 09:30 Insulin Aspart (NovoLOG) EVERY 4 HOURS SUBQ 04/03/20 13:00 07/02/20 12:59 Insulin Detemir (Levemir) 20 units BID SUBQ 04/03/20 09:00 07/01/20 10:59 04/03/20 09:31 Ipratropium [place] (Atrovent Inh) 2 puffs Q8H PRN INH WHEEZING 04/02/20 00:45 05/02/20 00:44 Metoprolol Tartrate (Lopressor) 25 mg Q12HR ORAL 04/02/20 09:00 07/01/20 08:59 04/03/20 09:30 Sodium Chloride 1,000 ml @ 125 mls/hr Q8H IV 04/03/20 12:00 05/03/20 11:59 04/03/20 13:07 Liv Galloway MD April 03, 2020 15:57
[2020-04-03 16:00] VITALS: BP 121/77
--- NOTE | 2020-04-03 16:23 | Cardiac Electrophysiology PN ---
Assessment/Plan Assessment/Plan 1. CP. Ruled out for [place]. 2. HTN On Lopressor 25 bid 3. Uncontrolled DM 4. SOB. R/O Covid Subjective Subjective Feeling better. No CP or SOB Objective Last 24 Hour Vital Signs Date Time Temp Pulse Resp B/P (MAP) Pulse Ox O2 Delivery O2 Flow Rate FiO2 04/03/20 12:00 96.4 102 18 131/89 (103) 98 04/03/20 12:00 93 04/03/20 10:31 110 04/03/20 09:30 120 124/89 04/03/20 09:00 Room Air 04/03/20 08:00 97.9 117 22 124/89 (101) 99 04/03/20 04:00 106 04/03/20 00:00 101 119/68 (85) 98 04/03/20 00:00 105 04/02/20 21:39 112 114/77 04/02/20 21:00 Room Air 04/02/20 20:29 112 114/77 (89) 98 Intake and Output 04/02/20 04/03/20 19:00 07:00 Intake Total 640 ml Output Total 6 ml Balance 640 ml -6 ml Intake Oral 640 ml Output Urine Total 6 ml # Voids 2 # Bowel Movements 1 1 Laboratory Tests Test 04/03/20 07:00 White Blood Count 7.1 K/UL (4.8-10.8) Red Blood Count 5.39 M/UL (4.70-6.10) Hemoglobin 16.1 G/DL (14.2-18.0) Hematocrit 45.4 % (42.0-52.0) Mean Corpuscular Volume 84 FL (80-99) Mean Corpuscular Hemoglobin 30.0 PG (27.0-31.0) Mean Corpuscular Hemoglobin Concent 35.6 G/DL (32.0-36.0) Red Cell Distribution Width 10.7 % (11.6-14.8) L Platelet Count 394 K/UL (150-450) Mean Platelet Volume 5.2 FL (6.5-10.1) L Neutrophils (%) (Auto) 66.4 % (45.0-75.0) Lymphocytes (%) (Auto) 26.9 % (20.0-45.0) Monocytes (%) (Auto) 4.0 % (1.0-10.0) Eosinophils (%) (Auto) 0.4 % (0.0-3.0) Basophils (%) (Auto) 2.3 % (0.0-2.0) H Sodium Level 125 MMOL/L (136-145) L Potassium Level 4.2 MMOL/L (3.5-5.1) Chloride Level 89 MMOL/L (98-107) L Carbon Dioxide Level 28 MMOL/L (21-32) Anion Gap 9 mmol/L (5-15) Blood Urea Nitrogen 18 mg/dL (7-18) Creatinine 1.4 MG/DL (0.55-1.30) H Estimat Glomerular Filtration Rate > 60 mL/min (>60) Glucose Level 775 MG/DL (74-106) #*H Calcium Level 9.4 MG/DL (8.5-10.1) Phosphorus Level 3.2 MG/DL (2.5-4.9) Magnesium Level 2.2 MG/DL (1.8-2.4) Total Bilirubin 0.5 MG/DL (0.2-1.0) Aspartate Amino Transf (AST/SGOT) 23 U/L (15-37) Alanine Aminotransferase (ALT/SGPT) 23 U/L (12-78) Alkaline Phosphatase 100 U/L (46-116) Troponin I 0.009 ng/mL (0.000-0.056) Total Protein 7.9 G/DL (6.4-8.2) Albumin 3.5 G/DL (3.4-5.0) Globulin 4.4 g/dL Albumin/Globulin Ratio 0.8 (1.0-2.7) L Microbiology Date/Time Source Procedure Growth Status 04/01/20 19:10 Blood Blood Culture - Preliminary NO GROWTH AFTER 24 HOURS Resulted 04/01/20 19:00 Blood Blood Culture - Preliminary NO GROWTH AFTER 24 HOURS Resulted 04/01/20 21:50 Urine,Clean Catch Urine Culture - Preliminary Yeast Species Resulted Objective EENT: PERRL/EOMI. No JVD Cardiovascular: normal rate, regular rhythm, regularly irregular Respiratory/Chest: lungs clear, normal breath sounds, no respiratory distress Abdomen: non tender, soft Neurologic: forensic pathologist II-XII grossly normal, oriented x 3 Skin: warm/dry Dirk Velazquez MD April 03, 2020 16:23
[2020-04-03 17:51] LABS: ANION GAP 10 mmol/L (5-15); BLOOD UREA NITROGEN 18 mg/dL (7-18); CALCIUM 8.6 MG/DL (8.5-10.1); CARBON DIOXIDE 26 MMOL/L (21-32); CHLORIDE 99 MMOL/L (98-107); CREATININE 1.2 MG/DL (0.55-1.30); POTASSIUM 4.2 MMOL/L (3.5-5.1); SODIUM 135 MMOL/L (136-145)
--- NOTE | 2020-04-03 19:13 | NUR ---
HAND-OFF: Report given to JOE Koch. Endorsed plan of care..
--- NOTE | 2020-04-03 19:20 | NUR ---
NURSE NOTES: Received report from Jhoan/JOE Dorado. Patient is awake, alert and oriented x 3. Patient is on CCHO (Medium) diet, instructed and amenable. On room air with no respiratory distress noted. Patient is continent x 2. IV site on left forearm G-20 saline lock running fluid of normal saline @ 125 cc/hour that is patent and intact. card hand is on shows sinus tachycardia with no chest pain reported. Safety measures are in placed, bed in lowest and locked position, Bed alarm is on, side rails up x 2. Call light and bedside table within reach. Will continue plan of care.
[2020-04-03 20:00] VITALS: BP 132/70
[2020-04-03] MEDS: Augmentin 875mg Tab ORAL SCH (20:19)
[2020-04-03] MEDS: HYDROcodone/Acetamin 5/325 tab ORAL PRN (23:10)
[2020-04-04] VITALS: BP 133/79
--- NOTE | 2020-04-04 00:15 | Consultation ---
DATE OF CONSULTATION: 04/03/2020 INFECTIOUS DISEASE CONSULTATION CONSULTING PHYSICIAN: Liv Galloway MD. ATTENDING PHYSICIAN: Kanu Hoskins MD. REFERRING PHYSICIAN: Kanu Hoskins MD. REASON FOR CONSULTATION: Possible pneumonia, possible COVID-19 virus infection, fevers. CHIEF COMPLAINT: Patient's chief complaint coming in to the hospital is respiratory insufficiency, HISTORY OF PRESENT ILLNESS: This is a 53-year-old male who comes in to [facility] with congestion, shortness of breath. Patient was diagnosed with respiratory infection, rule out COVID-19 virus infection. Patient is being treated for community-acquired pneumonia; however, chest x-ray has been negative. Infectious Disease consultation is requested. He is currently on Rocephin and azithromycin, I am changing to Augmentin. Chest x-ray has been negative. He is in COVID-19 virus isolation with PCR pending. REVIEW OF SYSTEMS: CONSTITUTIONAL: Main issue is cough, congestion. He did come in with fevers. No chills currently. CARDIAC: No chest pain. GASTROINTESTINAL: No nausea, vomiting or diarrhea. SKIN: No rash. GENITOURINARY: No dysuria or frequency. PULMONARY: Some shortness of breath, but it has improved. PAST MEDICAL HISTORY: Patient has past medical history of COPD and hyperglycemia. He is homeless, hypertension, renal failure. ALLERGIES: No known drug allergies. SOCIAL HISTORY: Negative for smoking, alcohol, or drug abuse. FAMILY HISTORY: Noncontributory. MEDICATIONS: Upon reviewing the MAR, he is on following medications. He is on aspirin, famotidine, insulin, sodium chloride, ceftriaxone, azithromycin, I am changing to Augmentin. He is on insulin, metoprolol, heparin, hydrocodone. Outside medications were noted and reconciliated. PHYSICAL EXAMINATION: VITAL SIGNS: Temperature 96.4, pulse 102, respiratory rate 18, saturation 98% on room air, blood pressure 131/89. GENERAL: Alert, responsive. No distress. HEAD AND NECK: Oral exam, no thrush. Eye exam, no icterus. Normocephalic. Neck is supple. HEART: No gallop or murmur. ABDOMEN: Soft. Positive bowel sounds. Nontender. LUNGS: Few bilateral rhonchi. No definite rales. SKIN: No rash. MUSCULOSKELETAL: No effusions. Legs are without cellulitis. PERIPHERAL VASCULAR: No cyanosis. GENITOURINARY: No Segura. LINE SITES: Without phlebitis. NEUROLOGIC: Intact. Nonfocal. Alert and oriented. LABORATORY DATA: Creatinine 1.4. White count 7.1, hemoglobin 16.1. Glucose is 775. Chest x-ray has been negative x2. COVID-19 virus testing is pending. UA had 0 to 2 white cells. Cultures, blood cultures negative. Urine culture with yeast. ASSESSMENT AND PLAN: 1. Patient has respiratory symptoms with fevers, rule out COVID-19 virus infection. Rule out upper respiratory tract infection and bronchitis. Rule out community-acquired pneumonia. Chest x-ray negative. Patient has urine culture with yeast, which is likely a colonizer. At this time, I favor changing Rocephin and azithromycin to Augmentin x3 more days to finish treatment for upper respiratory tract infection and bronchitis. Also treat community-acquired pneumonia. Await COVID-19 virus testing. Continue COVID-19 virus isolation for now. Continue supportive care. Monitor fevers. Continue Augmentin x3 more days. Fevers have improved. 2. COPD. 3. Likely diabetes and hyperglycemia. 4. Hypertension. 5. Homeless. 6. Diabetes and hypertension per primary care team. 7. Renal failure. 8. Hyperglycemia. 9. No known allergies. 10. Social history negative. 11. Family history noncontributory. 12. MAR was noted. 13. Case discussed with RN. Liv Galloway M.D. DR: NIA JOB#: [id number] CC:
--- NOTE | 2020-04-04 00:30 | Consultation ---
DATE OF CONSULTATION: 04/02/2020 CARDIOLOGY CONSULTATION CONSULTING PHYSICIAN: Dirk Velazquez MD. REFERRING PHYSICIAN: Kanu Hoskins MD. REASON FOR CONSULTATION: Chest pain. HISTORY OF PRESENT ILLNESS: Patient is a 53-year-old gentleman with history of hypertension, diabetes, hyperlipidemia, COPD, and asthma presents to the hospital with shortness of breath and lightheadedness. Patient is a very poor historian and is not able to provide any meaningful information. Patient also been noncompliant while on the floor and is complaining about hospital food. Patient says he takes insulin at home, but he does not know what type. Patient's blood glucose was 953 without evidence of DKA. Cardiology consultation was obtained for further evaluation. REVIEW OF SYSTEMS: Negative other than what is mentioned in the history of present illness. PAST MEDICAL HISTORY: As mentioned above. FAMILY HISTORY: Noncontributory. SOCIAL HISTORY: He lives at home. Denies using drugs. PHYSICAL EXAMINATION: VITAL SIGNS: Show blood pressure of 110/70, pulse is 70, respirations 18, and he is afebrile. HEAD AND NECK: No JVD. LUNGS: Clear. CARDIOVASCULAR: Regular S1 and S2 with no gallop. ABDOMEN: Soft. EXTREMITIES: No pitting edema. LABORATORY AND DIAGNOSTIC DATA: Labs show white count of 6.6, hemoglobin 15, hematocrit 46, platelet count of 363. Sodium is 134, potassium 3.9, BUN of 23, creatinine 1.7, glucose is 521. First troponin is negative. ASSESSMENT AND PLAN: 1. Chest pain. The pain is atypical. However, patient has multiple risk factors of hypertension and uncontrolled diabetes. We will completely rule out NH protocol and repeat EKG and get an echocardiogram. The preliminary echocardiogram showed ejection fraction of 55%. 2. Hypertension. Patient is on metoprolol 25 mg b.i.d., likely would need to switch to JOHN inhibitors especially in view of patient's diabetes. 3. Uncontrolled diabetes with glucose of almost 1000. 4. Fever and possible COVID-19 virus infection. Further evaluation by Dr. Galloway. 5. Fungal urine culture. Thank you very much for allowing me to participate in the care of this patient. Please do not hesitate to contact me for any questions regarding my evaluation. Dirk Velazquez M.D. DR: SCOTT JOB#: [id number] CC:
[2020-04-04] MEDS: NovoLOG Insulin Flexpen SUBQ SCH ×10 (01:40→21:00)
[2020-04-04] MEDS ORDERED: traMADol 50mg tab ORAL PRN ×2 (02:30→19:30)
[2020-04-04 04:00] VITALS: BP 141/99
--- NOTE | 2020-04-04 07:42 | NUR ---
HAND-OFF: Report given to JOE Zayas. Patient is in stable condition, RN made aware of blood sugar result. Plan of care endorsed.
[2020-04-04] MEDS: Levemir Flexpen SUBQ SCH ×2 (09:00→18:00)
[2020-04-04] MEDS: Augmentin 875mg Tab ORAL SCH ×2 (09:00→21:12)
[2020-04-04] MEDS: Heparin 5000 units/ml inj SUBQ SCH ×2 (09:00→21:00)
[2020-04-04] MEDS ORDERED: Aspirin Baby 81mg ORAL SCH (09:00)
--- NOTE | 2020-04-04 10:16 | Pulmonology Progress Note ---
Subjective Interval Events: Feeling better Constitutional: Reports: no symptoms HEENT: Repors: no symptoms Respiratory: Reports: no symptoms Cardiovascular: Reports: no symptoms Gastrointestinal/Abdominal: Reports: no symptoms Allergies: Coded Allergies: No Known Allergies (Unverified , 04/01/20) Objective Last 24 Hour Vital Signs Date Time Temp Pulse Resp B/P (MAP) Pulse Ox O2 Delivery O2 Flow Rate FiO2 04/04/20 08:26 Room Air 04/04/20 08:00 106 04/04/20 04:00 98.2 103 20 141/99 (113) 98 04/04/20 04:00 106 04/04/20 00:00 97.3 89 20 133/79 (97) 97 04/04/20 00:00 90 04/03/20 21:00 Room Air 04/03/20 20:19 101 128/65 04/03/20 20:00 113 04/03/20 20:00 97.6 98 21 132/70 (90) 98 04/03/20 16:00 108 04/03/20 16:00 96.8 90 18 121/77 (92) 94 04/03/20 12:00 96.4 102 18 131/89 (103) 98 04/03/20 12:00 93 04/03/20 10:31 110 Intake and Output 04/03/20 04/04/20 19:00 07:00 Intake Total 1430 ml 1500 ml Output Total 400 ml 1200 ml Balance 1030 ml 300 ml Intake Oral 930 ml 1500 ml IV Total 500 ml Output Urine Total 400 ml 1200 ml # Voids 4 # Bowel Movements 1 General Appearance: no acute distress HEENT: normocephalic Respiratory: chest wall non-tender, lungs clear Cardiovascular: normal peripheral pulses, normal rate Abdomen: normal bowel sounds Microbiology Date/Time Source Procedure Growth Status 04/01/20 19:10 Blood Blood Culture - Preliminary NO GROWTH AFTER 48 HOURS Resulted 04/01/20 19:00 Blood Blood Culture - Preliminary NO GROWTH AFTER 48 HOURS Resulted 04/01/20 21:50 Urine,Clean Catch Urine Culture - Preliminary Mckenzie Albicans Resulted Laboratory Tests 04/03/20 17:16: Sodium Level 135#L, Potassium Level 4.2, Chloride Level 99, Carbon Dioxide Level 26, Anion Gap 10, Blood Urea Nitrogen 18, Creatinine 1.2, Estimat Glomerular Filtration Rate > 60, Glucose Level 462#H, Calcium Level 8.6 Current Medications Medications (Trade) Dose Ordered Sig/Alejandra Route PRN Reason Start Time Stop Time Status Last Admin Dose Admin Acetaminophen (Tylenol) 650 mg Q6H PRN ORAL Mild Pain (Pain Scale 1-3) 04/02/20 00:45 05/02/20 00:44 Acetaminophen (Tylenol) 650 mg Q6H PRN ORAL Temp >100.5 04/02/20 00:45 05/02/20 00:44 Acetaminophen/ Hydrocodone Bitart ([place] 5/325) 1 tab Q6H PRN ORAL For Pain 04/02/20 00:45 04/09/20 00:44 04/03/20 23:10 Al Hydroxide/Mg Hydroxide (Mylanta) 30 ml BIDPRN PRN ORAL upset stomach 04/03/20 13:45 05/03/20 13:44 Albuterol Sulfate (Proventil MDI) 2 puff Q8H PRN INH Shortness of Breath 04/02/20 00:45 07/01/20 00:44 Amoxicillin/ Clavulanate Potassium (Augmentin) 875 mg EVERY 12 HOURS ORAL 04/03/20 21:00 04/10/20 20:59 04/03/20 20:19 Aspirin (ASA) 81 mg DAILY ORAL 04/04/20 09:00 05/19/20 08:59 Dextrose (Dextrose 50%) 25 ml Q30M PRN IV Hypoglycemia 04/04/20 08:00 07/03/20 07:59 Dextrose (Dextrose 50%) 50 ml Q30M PRN IV Hypoglycemia 04/04/20 08:00 07/03/20 07:59 Famotidine (Pepcid I.v.) 20 mg BIDPRN PRN IVP upset stomach 04/03/20 13:45 05/03/20 13:44 04/03/20 23:43 Heparin Sodium (Porcine) (Heparin 5000 units/ml) 5,000 units EVERY 12 HOURS SUBQ 04/02/20 09:00 05/17/20 08:59 04/03/20 20:19 Insulin Aspart (NovoLOG) EVERY 4 HOURS SUBQ 04/04/20 09:00 07/03/20 08:59 Insulin Aspart (NovoLOG) 10 units NOVOTIAC SUBQ 04/04/20 08:00 07/03/20 07:59 Insulin Detemir (Levemir) 28 units BID SUBQ 04/04/20 09:00 07/01/20 10:59 Ipratropium [place] (Atrovent Inh) 2 puffs Q8H PRN INH WHEEZING 04/02/20 00:45 05/02/20 00:44 Metoprolol Tartrate (Lopressor) 25 mg Q12HR ORAL 04/02/20 09:00 07/01/20 08:59 04/03/20 20:19 Sodium Chloride 1,000 ml @ 125 mls/hr Q8H IV 04/03/20 12:00 05/03/20 11:59 04/04/20 05:21 Tramadol HCl (Ultram) 50 mg Q6H PRN ORAL Moderate Pain (Pain Scale 4-6) 04/04/20 02:30 04/11/20 02:29 Assessment/Plan Assessment/Plan IMPRESSION: 1. Exacerbation of COPD. 2. Hyperglycemia. 3. Hypertension. 4. Homeless. 5. Renal failure. 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 Continue O2 prn; currently saturating well on RA Await COVID-19 pcr. Chuyita Flaherty Omar Syed MD April 04, 2020 10:16
--- NOTE | 2020-04-04 10:40 | NUR ---
NURSE NOTES: patient alert, oriented, restless refused the RN assigned to him, stated that RN touched his food, demanding to reassigned him to different RN, wants a new food, pt was reassigned to new RN, and pt still refusing, pt refused everything, Dr Shoemaker was notified, and she stated pt can be downgrade to medsurg while waiting to control his blood sugar.
--- NOTE | 2020-04-04 11:00 | NUR ---
NURSE NOTES: Received patient from Marquez DIAZ. No SOB orn acute distress. IV line intact. HOB elevated. Bed locked in lowest position. Call light within reach. Will continue plan of care.
--- NOTE | 2020-04-04 11:27 | NUR ---
NURSE NOTES: Patient repeatedly refused accucheck and medications despite offering multiple times, charge nurse and Dr shoemaker aware. Dr Shoemaker talked to patient and finally agreed to take accucheck and levemir. Patient uncooperative.
--- NOTE | 2020-04-04 11:50 | NUR ---
NURSE NOTES: Accucheck 474mg/dl, refused insulin. Charge nurse aware. Left message for Dr Shoemaker, awaiting callback.
--- NOTE | 2020-04-04 12:30 | NUR ---
Social Work This SW received a consult due to possible homelessness. This Sw met with patient who remains independent, does not require any DME and making his own decisions. Patient stating he lives at the following address in apartment alone: requesting a cab voucher to this address upon discharge. [address] [place] [address] [phone] Patient explains the following are his primary contact: Edin Pacheco: [phone] [facility] Roofing Subcontractor: Roddy [phone] Patient explains he has been attending daycare at: [facility] Patient denied any current auditory/visual hallucinations, SI/HI and substance abuse Patient plans to discharge to home upon discharge. No other needs/concerns present at this time. Patient resistant to nursing care. This SW advised patient to cooperate with nursing and taking medication/insulin. Patient stating agreement to cooperating at this time.
--- NOTE | 2020-04-04 13:01 | Cardiac Electrophysiology PN ---
Assessment/Plan Assessment/Plan 1. CP. Ruled out for DE. 2. HTN On Lopressor 25 bid 3. Uncontrolled DM 4. SOB. Covid still pending 5. Noncompliance DW RN Subjective Subjective Uncooperative and refusing insulin. No CP or SOB Objective Last 24 Hour Vital Signs Date Time Temp Pulse Resp B/P (MAP) Pulse Ox O2 Delivery O2 Flow Rate FiO2 04/04/20 08:26 Room Air 04/04/20 08:00 106 04/04/20 04:00 98.2 103 20 141/99 (113) 98 04/04/20 04:00 106 04/04/20 00:00 97.3 89 20 133/79 (97) 97 04/04/20 00:00 90 04/03/20 21:00 Room Air 04/03/20 20:19 101 128/65 04/03/20 20:00 113 04/03/20 20:00 97.6 98 21 132/70 (90) 98 04/03/20 16:00 108 04/03/20 16:00 96.8 90 18 121/77 (92) 94 Intake and Output 04/03/20 04/04/20 19:00 07:00 Intake Total 1430 ml 1500 ml Output Total 400 ml 1200 ml Balance 1030 ml 300 ml Intake Oral 930 ml 1500 ml IV Total 500 ml Output Urine Total 400 ml 1200 ml # Voids 4 # Bowel Movements 1 Laboratory Tests Test 04/03/20 17:16 Sodium Level 135 MMOL/L (136-145) #L Potassium Level 4.2 MMOL/L (3.5-5.1) Chloride Level 99 MMOL/L (98-107) Carbon Dioxide Level 26 MMOL/L (21-32) Anion Gap 10 mmol/L (5-15) Blood Urea Nitrogen 18 mg/dL (7-18) Creatinine 1.2 MG/DL (0.55-1.30) Estimat Glomerular Filtration Rate > 60 mL/min (>60) Glucose Level 462 MG/DL (74-106) #H Calcium Level 8.6 MG/DL (8.5-10.1) Microbiology Date/Time Source Procedure Growth Status 04/01/20 19:10 Blood Blood Culture - Preliminary NO GROWTH AFTER 48 HOURS Resulted 04/01/20 19:00 Blood Blood Culture - Preliminary NO GROWTH AFTER 48 HOURS Resulted 04/01/20 21:50 Urine,Clean Catch Urine Culture - Preliminary Mckenzie Albicans Resulted Objective EENT: PERRL/EOMI. No JVD Cardiovascular: normal rate, regular rhythm, regularly irregular Respiratory/Chest: lungs clear, normal breath sounds, no respiratory distress Abdomen: non tender, soft Neurologic: rehabilitation technician II-XII grossly normal, oriented x 3 Skin: warm/dry Dirk Velazquez MD April 04, 2020 13:01
--- NOTE | 2020-04-04 13:50 | Internal Med Progress Note ---
Subjective Date of Service: April 04, 2020 Physician Name Marie Shoemaker Attending Physician Kanu Hoskins MD Current Medications Medications (Trade) Dose Ordered Sig/Alejandra Route PRN Reason Start Time Stop Time Status Last Admin Dose Admin Acetaminophen (Tylenol) 650 mg Q6H PRN ORAL Mild Pain (Pain Scale 1-3) 04/02/20 00:45 05/02/20 00:44 Acetaminophen (Tylenol) 650 mg Q6H PRN ORAL Temp >100.5 04/02/20 00:45 05/02/20 00:44 Acetaminophen/ Hydrocodone Bitart ([place] 5/325) 1 tab Q6H PRN ORAL For Pain 04/02/20 00:45 04/09/20 00:44 04/03/20 23:10 Al Hydroxide/Mg Hydroxide (Mylanta) 30 ml BIDPRN PRN ORAL upset stomach 04/03/20 13:45 05/03/20 13:44 Albuterol Sulfate (Proventil MDI) 2 puff Q8H PRN INH Shortness of Breath 04/02/20 00:45 07/01/20 00:44 Amoxicillin/ Clavulanate Potassium (Augmentin) 875 mg EVERY 12 HOURS ORAL 04/03/20 21:00 04/10/20 20:59 04/03/20 20:19 Aspirin (ASA) 81 mg DAILY ORAL 04/04/20 09:00 05/19/20 08:59 Dextrose (Dextrose 50%) 25 ml Q30M PRN IV Hypoglycemia 04/04/20 08:00 07/03/20 07:59 Dextrose (Dextrose 50%) 50 ml Q30M PRN IV Hypoglycemia 04/04/20 08:00 07/03/20 07:59 Famotidine (Pepcid I.v.) 20 mg BIDPRN PRN IVP upset stomach 04/03/20 13:45 05/03/20 13:44 04/03/20 23:43 Heparin Sodium (Porcine) (Heparin 5000 units/ml) 5,000 units EVERY 12 HOURS SUBQ 04/02/20 09:00 05/17/20 08:59 04/03/20 20:19 Insulin Aspart (NovoLOG) EVERY 4 HOURS SUBQ 04/04/20 09:00 07/03/20 08:59 Insulin Aspart (NovoLOG) 10 units NOVOTIAC SUBQ 04/04/20 08:00 07/03/20 07:59 Insulin Detemir (Levemir) 28 units BID SUBQ 04/04/20 09:00 07/01/20 10:59 04/04/20 09:00 Ipratropium [place] (Atrovent Inh) 2 puffs Q8H PRN INH WHEEZING 04/02/20 00:45 05/02/20 00:44 Metoprolol Tartrate (Lopressor) 25 mg Q12HR ORAL 04/02/20 09:00 07/01/20 08:59 04/03/20 20:19 Sodium Chloride 1,000 ml @ 125 mls/hr Q8H IV 04/03/20 12:00 05/03/20 11:59 04/04/20 12:07 Tramadol HCl (Ultram) 50 mg Q6H PRN ORAL Moderate Pain (Pain Scale 4-6) 04/04/20 02:30 04/11/20 02:29 Allergies: Coded Allergies: No Known Allergies (Unverified , 04/01/20) Subjective Patient continues to have periods of severe agitation and refusal of care. It appears there is a psych issue going on. Problem is , cannot safely discharge patient with ongoing blood sugar issue , however he is intermittently refusing insulin. Have consulted Psych and Endo. Once blood sugar is controlled patient can be discharged. Hoping tomorrow. Had long discussion today about refusing insulin and behavior issues. Objective Last Vital Signs Date Time Temp Pulse Resp B/P (MAP) Pulse Ox O2 Delivery O2 Flow Rate FiO2 04/04/20 12:00 119 04/04/20 08:26 Room Air 04/04/20 04:00 98.2 20 141/99 (113) 98 Laboratory Tests Test 04/03/20 17:16 Sodium Level 135 MMOL/L (136-145) #L Potassium Level 4.2 MMOL/L (3.5-5.1) Chloride Level 99 MMOL/L (98-107) Carbon Dioxide Level 26 MMOL/L (21-32) Anion Gap 10 mmol/L (5-15) Blood Urea Nitrogen 18 mg/dL (7-18) Creatinine 1.2 MG/DL (0.55-1.30) Estimat Glomerular Filtration Rate > 60 mL/min (>60) Glucose Level 462 MG/DL (74-106) #H Calcium Level 8.6 MG/DL (8.5-10.1) Microbiology Date/Time Source Procedure Growth Status 04/01/20 19:10 Blood Blood Culture - Preliminary NO GROWTH AFTER 48 HOURS Resulted 04/01/20 19:00 Blood Blood Culture - Preliminary NO GROWTH AFTER 48 HOURS Resulted 04/01/20 21:50 Urine,Clean Catch Urine Culture - Preliminary Mckenzie Albicans Resulted Intake and Output 04/03/20 04/04/20 19:00 07:00 Intake Total 1430 ml 1500 ml Output Total 400 ml 1200 ml Balance 1030 ml 300 ml Intake Oral 930 ml 1500 ml IV Total 500 ml Output Urine Total 400 ml 1200 ml # Voids 4 # Bowel Movements 1 Objective General Appearance: WD/WN, no apparent distress EENT: PERRL/EOMI Cardiovascular: normal rate, regular rhythm, regularly irregular Respiratory/Chest: lungs clear, normal breath sounds, no respiratory distress Abdomen: non tender, soft 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 Borderline Personality Plan Consult To endocrine, consult to psych Pending COVID, obtain predictive markers ( CRP, Ferritin, LDH, Ddimer)-complete D/C steroids 2/2 hyperglycemia Lynch Cx Weight based insulin dosing, goal blood sugar less than 180 while inpatient, insulin long acting Levemir PRN BP meds for now , once renal function improves add Dmitry-Inhibitor for renal protection NS @ 125 cc/hr s/p aggressive bolus in ER Social Work Consult DVT ppx Diet 04/03: Consult endocrine, Increase levemir to 20 BID, Accuchecks Q4 hours while hyperglycemic, Give 10 units IV insulin one time now, monitor Bicarb, NS Bolus. Repeat BMP this evening 04/04: Await psych consult and endocrine consult. Marie Shoemaker D.O. April 04, 2020 13:50
--- NOTE | 2020-04-04 17:30 | Consultation ---
DATE OF CONSULTATION: 04/04/2020 ENDOCRINOLOGY CONSULTATION CONSULTING PHYSICIAN: Keenan Burnham M.D. REQUESTING PHYSICIAN: Kanu Hoskins M.D. REASON FOR CONSULTATION: Diabetes management. HISTORY OF PRESENT ILLNESS: The patient is a 53-year-old male with history of hypertension, diabetes, dyslipidemia, and COPD presented with chest pain, right greater than left. The patient is a poor historian in the interview. On presentation, blood glucose of 953 without any evidence of DKA. He was mildly febrile. The patient was admitted to the floor. I was called to manage diabetes. PAST MEDICAL HISTORY: 1. COPD. 2. Diabetes. 3. Hypertension. 4. Hyperlipidemia. ALLERGIES TO MEDICATIONS: None. SOCIAL HISTORY: No history of smoking. No alcohol or drug use. REVIEW OF SYSTEMS: A 12-point review of systems was performed. The pertinent positives and negative were mentioned in the history of present illness. FAMILY HISTORY: Noncontributory. LABORATORY VALUES: WBC 7, hemoglobin 16, hematocrit 45, platelet of 394. Sodium 135, potassium 4.2, chloride 99, bicarb 26, BUN 18, creatinine 1.2, glucose of 462. PHYSICAL EXAMINATION: VITAL SIGNS: Blood pressure 141/99, heart rate 102, temperature 98.2, and respiratory rate 20. HEENT: Pupils are equal and reactive to light. Sclerae anicteric. NECK: No JVD. HEART: Tachycardia. LUNGS: No wheezing. ABDOMEN: Positive bowel sounds. EXTREMITIES: No clubbing, cyanosis, edema. DIAGNOSES: 1. Diabetes, out of control. 2. COPD exacerbation. PLAN: 1. Increase Levemir to 28 units b.i.d. 2. Add NovoLog 10 units before each meal. 3. NovoLog sliding scale before meals and at bedtime. 4. Hypoglycemia protocol has been ordered. 5. Further adjustment according to blood glucose values. Thank you Dr. Hoskins for the courtesy of this consultation. Keenan Burnham M.D. DR: LYN JOB#: [id number] CC: JANAE
--- NOTE | 2020-04-04 17:55 | NUR ---
NURSE NOTES: received patient transferred from , came on bed, awake, alert, able to make needs known. Patient refused top let both transferring and receiving nurses check his belongings and benitez money. Skin intact. LFA IV access in place, saline locked. No distress noted, in room air, no complaint of pain or discomfort. Will continue to monitor patient and follow up with the plan of care. Addendum: 04/04/20 at 1850 by COLEEN MADRID RN actually pt receives IVF NS @ 125cc/hr
--- NOTE | 2020-04-04 17:57 | NUR ---
HAND-OFF: Transferred patient to 408-1, Report given to Caro DIAZ. Addendum: 04/04/20 at 1815 by Anabell Hutchinson RN Spoke to Dr Shoemaker regarding patient's refusal of insulin, no new orders.
[2020-04-04] MEDS ORDERED: Albuterol 90mcg Inhaler 8gm INH PRN (19:15)
[2020-04-04] MEDS ORDERED: HYDROcodone/Acetamin 5/325 tab ORAL PRN ×2 (19:30)
[2020-04-04] MEDS ORDERED: Ipratropium Bromide Inhaler INH PRN (19:30)
--- NOTE | 2020-04-04 19:50 | NUR ---
HAND-OFF: Report given to JOE Osman.
--- NOTE | 2020-04-04 19:55 | NUR ---
HAND-OFF: Report given to Fabrizio DIAZ.
[2020-04-04 20:00] VITALS: BP 129/78
--- NOTE | 2020-04-04 20:07 | NUR ---
NURSE NOTES: Received report from Juana DIAZ, The patient is alert and oriented x4, He is on Room air and does not appear to be in any distress. LFA IV access in place, saline locked was flushed with NS and is patent. will continue to monitor.
--- NOTE | 2020-04-04 22:49 | NUR ---
NURSE NOTES: Received patient in bed, awake, alert, oriented x2/3, ambulatory with steady gate, patient has refused blood sugar check,stated that he doesn't want anyone to enter his room. RN reenforced the importance of staying compliant with medication regimen, patient insisted on not being bothered. Call light is within reach, bed is lowered, locked, alarm is on, will continue to monitor for comfort and safety.
[2020-04-05] MEDS: NovoLOG Insulin Flexpen SUBQ SCH ×9 (01:00→21:23)
[2020-04-05 06:34] LABS: BASOPHILS % (AUTO) 1.4 % (0.0-2.0); EOSINOPHILS % (AUTO) 1.2 % (0.0-3.0); HEMATOCRIT 40.4 % (42.0-52.0); HEMOGLOBIN 14.6 G/DL (14.2-18.0); LYMPHOCYTES % (AUTO) 22.2 % (20.0-45.0); MEAN CORPUSCULAR VOLUME 84 FL (80-99); MONOCYTES % (AUTO) 4.7 % (1.0-10.0); NEUTROPHILS % (AUTO) 70.4 % (45.0-75.0); PLATELET COUNT 381 K/UL (150-450); RED BLOOD COUNT 4.84 M/UL (4.70-6.10); RED CELL DISTRIBUTION WIDTH 10.8 % (11.6-14.8)
[2020-04-05 06:52] LABS: ALANINE AMINOTRANSFERASE 45 U/L (12-78); ALBUMIN 3.1 G/DL (3.4-5.0); ALBUMIN/GLOBULIN RATIO 0.8 (1.0-2.7); ALKALINE PHOSPHATASE 71 U/L (46-116); ANION GAP 9 mmol/L (5-15); ASPARTATE AMINO TRANSFERASE 45 U/L (15-37); BILIRUBIN,TOTAL 0.5 MG/DL (0.2-1.0); BLOOD UREA NITROGEN 16 mg/dL (7-18); CALCIUM 9.2 MG/DL (8.5-10.1); CARBON DIOXIDE 27 MMOL/L (21-32); CHLORIDE 95 MMOL/L (98-107); CREATININE 1.2 MG/DL (0.55-1.30); PHOSPHORUS 3.8 MG/DL (2.5-4.9); POTASSIUM 4.5 MMOL/L (3.5-5.1); SODIUM 131 MMOL/L (136-145)
--- NOTE | 2020-04-05 07:17 | NUR ---
HAND-OFF: Report given to Lucina DIAZ.
--- NOTE | 2020-04-05 07:27 | General Progress Note ---
Assessment/Plan Problem List: (1) Diabetes mellitus out of control (2) Severe acute respiratory syndrome coronavirus 2 (SARS-CoV-2) infection ruled out Assessment/Plan: difficult to manage diabetes due to patient's lack of cooperation continue Levemir 28 units bid continue Novolog 10 units ac tid continue Novolog sliding scale ac / hs Subjective ROS Limited/Unobtainable: Yes Allergies: Coded Allergies: No Known Allergies (Unverified , 04/01/20) Subjective events noted glucose elevated - refusing insulin at times Item Value Date Time Glucose Level 475 MG/DL H 04/05/20 0545 Bedside Blood Glucose 371 mg/dl H 04/04/20 1800 Bedside Blood Glucose 474 mg/dl H 04/04/20 1150 Bedside Blood Glucose 317 mg/dl H 04/04/20 0900 Bedside Blood Glucose 331 mg/dl H 04/04/20 0600 Bedside Blood Glucose 444 mg/dl H 04/04/20 0140 Objective Last 24 Hour Vital Signs Date Time Temp Pulse Resp B/P (MAP) Pulse Ox O2 Delivery O2 Flow Rate FiO2 04/04/20 22:12 Room Air 04/04/20 21:12 78 129/74 04/04/20 20:00 98.0 78 18 129/78 (95) 98 04/04/20 16:00 117 04/04/20 12:00 119 04/04/20 08:26 Room Air 04/04/20 08:00 106 Intake and Output 04/04/20 04/05/20 19:00 07:00 Intake Total 1200 ml 360 ml Output Total 1600 ml Balance 1200 ml -1240 ml Intake Oral 1200 ml Other 360 ml Output Urine Total 1600 ml Laboratory Tests 04/05/20 05:45: White Blood Count 8.0, Red Blood Count 4.84, Hemoglobin 14.6, Hematocrit 40.4L, Mean Corpuscular Volume 84, Mean Corpuscular Hemoglobin 30.1, Mean Corpuscular Hemoglobin Concent 36.0, Red Cell Distribution Width 10.8L, Platelet Count 381, Mean Platelet Volume 4.9L, Neutrophils (%) (Auto) 70.4, Lymphocytes (%) (Auto) 22.2, Monocytes (%) (Auto) 4.7, Eosinophils (%) (Auto) 1.2, Basophils (%) (Auto ) 1.4, Sodium Level 131L, Potassium Level 4.5, Chloride Level 95L, Carbon Dioxide Level 27, Anion Gap 9, Blood Urea Nitrogen 16, Creatinine 1.2, Estimat Glomerular Filtration Rate > 60, Glucose Level 475H, Calcium Level 9.2, Phosphorus Level 3.8, Magnesium Level 2.0, Total Bilirubin 0.5, Aspartate Amino Transf (AST/SGOT) 45H, Alanine Aminotransferase (ALT/SGPT) 45, Alkaline Phosphatase 71, Total Protein 6.8, Albumin 3.1L, Globulin 3.7, Albumin/Globulin Ratio 0.8L Height (Feet): 5 Height (Inches): 4.00 Weight (Pounds): 135 Objective Current Medications Medications (Trade) Dose Ordered Sig/Alejandra Route PRN Reason Start Time Stop Time Status Last Admin Dose Admin Acetaminophen (Tylenol) 650 mg Q6H PRN ORAL Temp >100.5 04/04/20 19:00 05/04/20 18:59 Acetaminophen (Tylenol) 650 mg Q6H PRN ORAL Mild Pain (Pain Scale 1-3) 04/04/20 19:30 05/04/20 19:29 Acetaminophen/ Hydrocodone Bitart ([place] 5/325) 1 tab Q6H PRN ORAL Severe Pain (Pain Scale 7-10) 04/04/20 19:30 04/11/20 19:29 Al Hydroxide/Mg Hydroxide (Mylanta) 30 ml BIDPRN PRN ORAL upset stomach 04/04/20 19:30 05/04/20 19:29 Albuterol Sulfate (Proventil MDI) 2 puff Q8H PRN INH Shortness of Breath 04/04/20 19:15 07/03/20 19:14 Amoxicillin/ Clavulanate [place] (Augmentin) 875 mg EVERY 12 HOURS ORAL 04/04/20 21:00 04/10/20 20:59 04/04/20 21:12 Aspirin (ASA) 81 mg DAILY ORAL 04/05/20 09:00 05/19/20 08:59 Dextrose (Dextrose 50%) 25 ml Q30M PRN IV Hypoglycemia 04/04/20 19:30 07/03/20 07:59 Dextrose (Dextrose 50%) 50 ml Q30M PRN IV Hypoglycemia 04/04/20 19:30 07/03/20 07:59 Famotidine (Pepcid I.v.) 20 mg BIDPRN PRN IVP upset stomach 04/04/20 19:30 05/04/20 19:29 Heparin Sodium (Porcine) (Heparin 5000 units/ml) 5,000 units EVERY 12 HOURS SUBQ 04/04/20 21:00 05/17/20 08:59 Insulin Aspart (NovoLOG) EVERY 4 HOURS SUBQ 04/04/20 21:00 07/03/20 08:59 Insulin Aspart (NovoLOG) 10 units NOVOTIAC SUBQ 04/05/20 06:30 07/03/20 07:59 Insulin Detemir (Levemir) 28 units BID SUBQ 04/05/20 09:00 07/01/20 10:59 Ipratropium [place] (Atrovent Inh) 2 puffs Q8H PRN INH WHEEZING 04/04/20 19:30 05/04/20 19:29 Metoprolol Tartrate (Lopressor) 25 mg Q12HR ORAL 04/04/20 21:00 07/01/20 08:59 04/04/20 21:12 Sodium Chloride 1,000 ml @ 125 mls/hr Q8H IV 04/04/20 19:15 05/03/20 11:59 Tramadol HCl (Ultram) 50 mg Q6H PRN ORAL Moderate Pain (Pain Scale 4-6) 04/04/20 19:30 04/11/20 19:29 Keenan Burnham MD April 05, 2020 07:27
--- NOTE | 2020-04-05 07:40 | NUR ---
NURSE NOTES: Patient opened the room door and was standing by the door stating " I want to leave. There is no reason why I have to be here." RN explained about AMA and his elevated blood sugar and patient fully understood what AMA.Patient says he needs to talk to the person in contact to give him a ride. RN spoke to Dr. Shoemaker and informed Dr. Shoemaker that patient wants to leave AMA. Will follow up.
--- NOTE | 2020-04-05 07:45 | NUR ---
NURSE NOTES: Received patient standing at the side of room door stating that he wants to leave. Patient is AAO x 4. BS is at 475. Notified MD. Calmed patient down. RN to administer insulin as ordered [facility] he has been refusing "everything." Will continue POC and monitor pt for hyperglycemic reactions.
--- NOTE | 2020-04-05 07:55 | NUR ---
NURSE NOTES: Patient changed his mind stating "I am not leaving. I will wait for my doctor." Will continue plan of care.
[2020-04-05 08:00] VITALS: BP 147/99
[2020-04-05] MEDS: Levemir Flexpen SUBQ SCH ×2 (08:33→17:36)
--- NOTE | 2020-04-05 08:44 | NUR ---
NURSE NOTES: Patient has been refusing blood sugar check and insulin per report and record. Patient's blood glucose from the blood draw was 475 this morning and patient asked for another breakfast tray. Patient agreed for blood sugar check and insulin injection. RN checked the blood sugar prior to insulin. BS was 568mg/dl. Patient is alert,awake,complains of mild headache @ this time. Given insulin and will continue to monitor for any changes in condition. Bed is in lowest position and locked. Call light within reach. Bed alarm is on. Educated on ss/ of hypoglycemia.
[2020-04-05] MEDS: Augmentin 875mg Tab ORAL SCH ×2 (08:49→20:49)
[2020-04-05] MEDS: Heparin 5000 units/ml inj SUBQ SCH ×2 (08:49→20:50)
[2020-04-05] MEDS: Aspirin Baby 81mg ORAL SCH (08:50)
--- NOTE | 2020-04-05 09:30 | NUR ---
MD order received and PT evaluation completed, pls see form for details. Patient participated with bed mobility, transfers and gait with FWW with min A. Patient very weak and unsteady with gait, taking very small slow steps x 10 feet. Patient reports did not use a FWW previously but since feeling achy and fatigue "all over", needs FWW for stability. Patient will benefit from skilled PT to build strength and increase independence with mobility. Patient is at risk for falls. Patient reports lives alone at home and would not be able to manage by himself. Patient would like his caregiver Raad to be contacted if he can help, otherwise patient reports he would go to his sister's house if discharged home for assistance. Patient may need a FWW at discharge if going home. Patient to be seen QD 5x/wk for 2 weeks or for length of stay. Thank you for this referral.
--- NOTE | 2020-04-05 10:00 | NUR ---
NURSE NOTES: Patient denies headache or chest pain. Will continue to monitor. IVF of NS @125cc/hr running.
--- NOTE | 2020-04-05 10:02 | NUR ---
DISCHARGE PLANNING CALL MADE TO [employer]ENTS [employer] KATELYN CHIN @ [phone]. INFORMED OF PATIENTS ANTICIPATED DISCHARGE TODAY. STATES HE WILL COORDINATE TRANSPORTATION FOR PATIENT AND CALL THIS CM WITH AVAILABLE TIME FRAME FOR PATIENT CONVENTIONAL MACHINIST.
--- NOTE | 2020-04-05 10:03 | Pulmonology Progress Note ---
Subjective ROS Limited/Unobtainable: Yes Interval Events: Feeling better Constitutional: Reports: no symptoms HEENT: Repors: no symptoms Respiratory: Reports: no symptoms Cardiovascular: Reports: no symptoms Gastrointestinal/Abdominal: Reports: no symptoms Allergies: Coded Allergies: No Known Allergies (Unverified , 04/01/20) Objective Last 24 Hour Vital Signs Date Time Temp Pulse Resp B/P (MAP) Pulse Ox O2 Delivery O2 Flow Rate FiO2 04/05/20 08:51 123 147/99 04/05/20 08:00 97.7 123 17 147/99 (115) 99 04/04/20 22:12 Room Air 04/04/20 21:12 78 129/74 04/04/20 20:00 98.0 78 18 129/78 (95) 98 04/04/20 16:00 117 04/04/20 12:00 119 Intake and Output 04/04/20 04/05/20 19:00 07:00 Intake Total 1200 ml 360 ml Output Total 1600 ml Balance 1200 ml -1240 ml Intake Oral 1200 ml Other 360 ml Output Urine Total 1600 ml General Appearance: no acute distress HEENT: normocephalic Respiratory: chest wall non-tender, lungs clear Cardiovascular: normal peripheral pulses, normal rate Abdomen: normal bowel sounds Laboratory Tests 04/05/20 05:45: White Blood Count 8.0, Red Blood Count 4.84, Hemoglobin 14.6, Hematocrit 40.4L, Mean Corpuscular Volume 84, Mean Corpuscular Hemoglobin 30.1, Mean Corpuscular Hemoglobin Concent 36.0, Red Cell Distribution Width 10.8L, Platelet Count 381, Mean Platelet Volume 4.9L, Neutrophils (%) (Auto) 70.4, Lymphocytes (%) (Auto) 22.2, Monocytes (%) (Auto) 4.7, Eosinophils (%) (Auto) 1.2, Basophils (%) (Auto ) 1.4, Sodium Level 131L, Potassium Level 4.5, Chloride Level 95L, Carbon Dioxide Level 27, Anion Gap 9, Blood Urea Nitrogen 16, Creatinine 1.2, Estimat Glomerular Filtration Rate > 60, Glucose Level 475H, Calcium Level 9.2, Phosphorus Level 3.8, Magnesium Level 2.0, Total Bilirubin 0.5, Aspartate Amino Transf (AST/SGOT) 45H, Alanine Aminotransferase (ALT/SGPT) 45, Alkaline Phosphatase 71, Total Protein 6.8, Albumin 3.1L, Globulin 3.7, Albumin/Globulin Ratio 0.8L Current Medications Medications (Trade) Dose Ordered Sig/Alejandra Route PRN Reason Start Time Stop Time Status Last Admin Dose Admin Acetaminophen (Tylenol) 650 mg Q6H PRN ORAL Temp >100.5 04/04/20 19:00 05/04/20 18:59 Acetaminophen (Tylenol) 650 mg Q6H PRN ORAL Mild Pain (Pain Scale 1-3) 04/04/20 19:30 05/04/20 19:29 04/05/20 09:40 Acetaminophen/ Hydrocodone Bitart ([place] 5/325) 1 tab Q6H PRN ORAL Severe Pain (Pain Scale 7-10) 04/04/20 19:30 04/11/20 19:29 Al Hydroxide/Mg Hydroxide (Mylanta) 30 ml BIDPRN PRN ORAL upset stomach 04/04/20 19:30 05/04/20 19:29 Albuterol Sulfate (Proventil MDI) 2 puff Q8H PRN INH Shortness of Breath 04/04/20 19:15 07/03/20 19:14 Amoxicillin/ Clavulanate Potassium (Augmentin) 875 mg EVERY 12 HOURS ORAL 04/04/20 21:00 04/10/20 20:59 04/05/20 08:49 Aspirin (ASA) 81 mg DAILY ORAL 04/05/20 09:00 05/19/20 08:59 04/05/20 08:50 Dextrose (Dextrose 50%) 25 ml Q30M PRN IV Hypoglycemia 04/04/20 19:30 07/03/20 07:59 Dextrose (Dextrose 50%) 50 ml Q30M PRN IV Hypoglycemia 04/04/20 19:30 07/03/20 07:59 Famotidine (Pepcid I.v.) 20 mg BIDPRN PRN IVP upset stomach 04/04/20 19:30 05/04/20 19:29 Heparin Sodium (Porcine) (Heparin 5000 units/ml) 5,000 units EVERY 12 HOURS SUBQ 04/04/20 21:00 05/17/20 08:59 04/05/20 08:49 Insulin Aspart (NovoLOG) EVERY 4 HOURS SUBQ 04/04/20 21:00 07/03/20 08:59 04/05/20 08:32 Insulin Aspart (NovoLOG) 10 units NOVOTIAC SUBQ 04/05/20 06:30 07/03/20 07:59 Insulin Detemir (Levemir) 28 units BID SUBQ 04/05/20 09:00 07/01/20 10:59 04/05/20 08:33 Ipratropium [place] (Atrovent Inh) 2 puffs Q8H PRN INH WHEEZING 04/04/20 19:30 05/04/20 19:29 Metoprolol Tartrate (Lopressor) 25 mg Q12HR ORAL 04/04/20 21:00 07/01/20 08:59 04/05/20 08:51 Sodium Chloride 1,000 ml @ 125 mls/hr Q8H IV 04/04/20 19:15 05/03/20 11:59 Tramadol HCl (Ultram) 50 mg Q6H PRN ORAL Moderate Pain (Pain Scale 4-6) 04/04/20 19:30 04/11/20 19:29 Assessment/Plan Assessment/Plan IMPRESSION: 1. Exacerbation of COPD. 2. Hyperglycemia. 3. Hypertension. 4. Homeless. 5. Renal failure. 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 Continue O2 prn; currently saturating well on RA Await COVID-19 pcr. Chuyita Flaherty Omar Syed MD April 05, 2020 10:03
[2020-04-05 12:00] VITALS: BP 137/88
--- NOTE | 2020-04-05 12:14 | NUR ---
NURSE NOTES: Dr. Velazquez made his round and RN informed Dr. Velazquez that patient had episodes of chest pain and elevated pulse rate of 123 that resolved now. Received orders to do EKG,NTG PRN. Verified orders and carried out.
[2020-04-05] MEDS ORDERED: Nitroglycerin Subl 0.4mg tab SL PRN (12:15)
--- NOTE | 2020-04-05 13:32 | Cardiac Electrophysiology PN ---
Assessment/Plan Assessment/Plan 1. CP. Ruled out for IN. 2. HTN On Lopressor 25 bid 3. Uncontrolled DM 4. SOB. Covid still pending 5. Noncompliance DW RN Subjective Subjective Uncooperative and nocompliant. BG still >500. No CP or SOB Objective Last 24 Hour Vital Signs Date Time Temp Pulse Resp B/P (MAP) Pulse Ox O2 Delivery O2 Flow Rate FiO2 04/05/20 12:00 98.8 92 17 137/88 (104) 96 04/05/20 09:00 Room Air 04/05/20 08:51 123 147/99 04/05/20 08:00 97.7 123 17 147/99 (115) 99 04/04/20 22:12 Room Air 04/04/20 21:12 78 129/74 04/04/20 20:00 98.0 78 18 129/78 (95) 98 04/04/20 16:00 117 Intake and Output 04/04/20 04/05/20 19:00 07:00 Intake Total 1200 ml 360 ml Output Total 1600 ml Balance 1200 ml -1240 ml Intake Oral 1200 ml Other 360 ml Output Urine Total 1600 ml Laboratory Tests Test 04/05/20 05:45 White Blood Count 8.0 K/UL (4.8-10.8) Red Blood Count 4.84 M/UL (4.70-6.10) Hemoglobin 14.6 G/DL (14.2-18.0) Hematocrit 40.4 % (42.0-52.0) L Mean Corpuscular Volume 84 FL (80-99) Mean Corpuscular Hemoglobin 30.1 PG (27.0-31.0) Mean Corpuscular Hemoglobin Concent 36.0 G/DL (32.0-36.0) Red Cell Distribution Width 10.8 % (11.6-14.8) L Platelet Count 381 K/UL (150-450) Mean Platelet Volume 4.9 FL (6.5-10.1) L Neutrophils (%) (Auto) 70.4 % (45.0-75.0) Lymphocytes (%) (Auto) 22.2 % (20.0-45.0) Monocytes (%) (Auto) 4.7 % (1.0-10.0) Eosinophils (%) (Auto) 1.2 % (0.0-3.0) Basophils (%) (Auto) 1.4 % (0.0-2.0) Sodium Level 131 MMOL/L (136-145) L Potassium Level 4.5 MMOL/L (3.5-5.1) Chloride Level 95 MMOL/L (98-107) L Carbon Dioxide Level 27 MMOL/L (21-32) Anion Gap 9 mmol/L (5-15) Blood Urea Nitrogen 16 mg/dL (7-18) Creatinine 1.2 MG/DL (0.55-1.30) Estimat Glomerular Filtration Rate > 60 mL/min (>60) Glucose Level 475 MG/DL (74-106) H Calcium Level 9.2 MG/DL (8.5-10.1) Phosphorus Level 3.8 MG/DL (2.5-4.9) Magnesium Level 2.0 MG/DL (1.8-2.4) Total Bilirubin 0.5 MG/DL (0.2-1.0) Aspartate Amino Transf (AST/SGOT) 45 U/L (15-37) H Alanine Aminotransferase (ALT/SGPT) 45 U/L (12-78) Alkaline Phosphatase 71 U/L (46-116) Total Protein 6.8 G/DL (6.4-8.2) Albumin 3.1 G/DL (3.4-5.0) L Globulin 3.7 g/dL Albumin/Globulin Ratio 0.8 (1.0-2.7) L Objective EENT: PERRL/EOMI. 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
--- NOTE | 2020-04-05 15:17 | Internal Med Progress Note ---
Subjective Date of Service: April 05, 2020 Physician Name Marie Shoemaker Attending Physician Kanu Hoskins MD Current Medications Medications (Trade) Dose Ordered Sig/Alejandra Route PRN Reason Start Time Stop Time Status Last Admin Dose Admin Acetaminophen (Tylenol) 650 mg Q6H PRN ORAL Temp >100.5 04/04/20 19:00 05/04/20 18:59 Acetaminophen (Tylenol) 650 mg Q6H PRN ORAL Mild Pain (Pain Scale 1-3) 04/04/20 19:30 05/04/20 19:29 04/05/20 09:40 Acetaminophen/ Hydrocodone Bitart ([place] 5/325) 1 tab Q6H PRN ORAL Severe Pain (Pain Scale 7-10) 04/04/20 19:30 04/11/20 19:29 Al Hydroxide/Mg Hydroxide (Mylanta) 30 ml BIDPRN PRN ORAL upset stomach 04/04/20 19:30 05/04/20 19:29 Albuterol Sulfate (Proventil MDI) 2 puff Q8H PRN INH Shortness of Breath 04/04/20 19:15 07/03/20 19:14 Amoxicillin/ Clavulanate Potassium (Augmentin) 875 mg EVERY 12 HOURS ORAL 04/04/20 21:00 04/10/20 20:59 04/05/20 08:49 Aspirin (ASA) 81 mg DAILY ORAL 04/05/20 09:00 05/19/20 08:59 04/05/20 08:50 Dextrose (Dextrose 50%) 25 ml Q30M PRN IV Hypoglycemia 04/04/20 19:30 07/03/20 07:59 Dextrose (Dextrose 50%) 50 ml Q30M PRN IV Hypoglycemia 04/04/20 19:30 07/03/20 07:59 Famotidine (Pepcid I.v.) 20 mg BIDPRN PRN IVP upset stomach 04/04/20 19:30 05/04/20 19:29 Heparin Sodium (Porcine) (Heparin 5000 units/ml) 5,000 units EVERY 12 HOURS SUBQ 04/04/20 21:00 05/17/20 08:59 04/05/20 08:49 Insulin Aspart (NovoLOG) EVERY 4 HOURS SUBQ 04/04/20 21:00 07/03/20 08:59 04/05/20 15:00 Insulin Aspart (NovoLOG) 10 units NOVOTIAC SUBQ 04/05/20 06:30 07/03/20 07:59 04/05/20 12:24 Insulin Detemir (Levemir) 28 units BID SUBQ 04/05/20 09:00 07/01/20 10:59 04/05/20 08:33 Ipratropium [place] (Atrovent Inh) 2 puffs Q8H PRN INH WHEEZING 04/04/20 19:30 05/04/20 19:29 Metoprolol Tartrate (Lopressor) 25 mg Q12HR ORAL 04/04/20 21:00 07/01/20 08:59 04/05/20 08:51 Nitroglycerin (Ntg) 0.4 mg Q5M PRN SL Prn Chest Pain 04/05/20 12:15 05/05/20 12:14 Sodium Chloride 1,000 ml @ 125 mls/hr Q8H IV 04/04/20 19:15 05/03/20 11:59 Tramadol HCl (Ultram) 50 mg Q6H PRN ORAL Moderate Pain (Pain Scale 4-6) 04/04/20 19:30 04/11/20 19:29 Allergies: Coded Allergies: No Known Allergies (Unverified , 04/01/20) Subjective Patient continues to have periods of severe agitation and refusal of care. It appears there is a psych issue going on. Problem is , cannot safely discharge patient with ongoing blood sugar issue , however he is intermittently refusing insulin. Have consulted Psych and Endo. Once blood sugar is controlled patient can be discharged. Hoping tomorrow. Had long discussion today about refusing insulin and behavior issues. Today patient states he is not denying insulin and almost left AMA this am. Social work consult Objective Last Vital Signs Date Time Temp Pulse Resp B/P (MAP) Pulse Ox O2 Delivery O2 Flow Rate FiO2 04/05/20 12:00 98.8 92 17 137/88 (104) 96 04/05/20 09:00 Room Air Laboratory Tests Test 04/05/20 05:45 White Blood Count 8.0 K/UL (4.8-10.8) Red Blood Count 4.84 M/UL (4.70-6.10) Hemoglobin 14.6 G/DL (14.2-18.0) Hematocrit 40.4 % (42.0-52.0) L Mean Corpuscular Volume 84 FL (80-99) Mean Corpuscular Hemoglobin 30.1 PG (27.0-31.0) Mean Corpuscular Hemoglobin Concent 36.0 G/DL (32.0-36.0) Red Cell Distribution Width 10.8 % (11.6-14.8) L Platelet Count 381 K/UL (150-450) Mean Platelet Volume 4.9 FL (6.5-10.1) L Neutrophils (%) (Auto) 70.4 % (45.0-75.0) Lymphocytes (%) (Auto) 22.2 % (20.0-45.0) Monocytes (%) (Auto) 4.7 % (1.0-10.0) Eosinophils (%) (Auto) 1.2 % (0.0-3.0) Basophils (%) (Auto) 1.4 % (0.0-2.0) Sodium Level 131 MMOL/L (136-145) L Potassium Level 4.5 MMOL/L (3.5-5.1) Chloride Level 95 MMOL/L (98-107) L Carbon Dioxide Level 27 MMOL/L (21-32) Anion Gap 9 mmol/L (5-15) Blood Urea Nitrogen 16 mg/dL (7-18) Creatinine 1.2 MG/DL (0.55-1.30) Estimat Glomerular Filtration Rate > 60 mL/min (>60) Glucose Level 475 MG/DL (74-106) H Calcium Level 9.2 MG/DL (8.5-10.1) Phosphorus Level 3.8 MG/DL (2.5-4.9) Magnesium Level 2.0 MG/DL (1.8-2.4) Total Bilirubin 0.5 MG/DL (0.2-1.0) Aspartate Amino Transf (AST/SGOT) 45 U/L (15-37) H Alanine Aminotransferase (ALT/SGPT) 45 U/L (12-78) Alkaline Phosphatase 71 U/L (46-116) Total Protein 6.8 G/DL (6.4-8.2) Albumin 3.1 G/DL (3.4-5.0) L Globulin 3.7 g/dL Albumin/Globulin Ratio 0.8 (1.0-2.7) L Intake and Output 04/04/20 04/05/20 19:00 07:00 Intake Total 1200 ml 360 ml Output Total 1600 ml Balance 1200 ml -1240 ml Intake Oral 1200 ml Other 360 ml Output Urine Total 1600 ml Objective General Appearance: WD/WN, no apparent distress EENT: PERRL/EOMI Cardiovascular: normal rate, regular rhythm, regularly irregular Respiratory/Chest: lungs clear, normal breath sounds, no respiratory distress Abdomen: non tender, soft 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 Borderline Personality Plan Consult To endocrine, consult to psych Pending COVID, obtain predictive markers ( CRP, Ferritin, LDH, Ddimer)-complete D/C steroids 2/2 hyperglycemia Lynch Cx Weight based insulin dosing, goal blood sugar less than 180 while inpatient, insulin long acting Levemir PRN BP meds for now , once renal function improves add Dmitry-Inhibitor for renal protection NS @ 125 cc/hr s/p aggressive bolus in ER Social Work Consult DVT ppx Diet 04/03: Consult endocrine, Increase levemir to 20 BID, Accuchecks Q4 hours while hyperglycemic, Give 10 units IV insulin one time now, monitor Bicarb, NS Bolus. Repeat BMP this evening 04/04: Await psych consult and endocrine consult. 04/05: Still trying to control blood sugar; d/c once controlled Marie Shoemaker D.O. April 05, 2020 15:17
[2020-04-05 16:00] VITALS: BP 129/81
--- NOTE | 2020-04-05 16:18 | NUR ---
*-* INSURANCE *-* ALL CLINICALS AND REVIEWS HAVE BEEN FAXED TO: [facility] ph#[phone] fax#[phone] & ph#[phone] fax#[phone] Addendum: 04/06/20 at 1537 by GAMALIEL TALAVERA CM ALL CLINICALS FOR THIS DAY HAD TO BE RE-FAXED INFORMATION WAS CUED IN FAX MACHINE BUT NEVER FAXED IT DEPARTMENT CANCELLED ALL FAXES *-*
--- NOTE | 2020-04-05 16:30 | NUR ---
NURSE NOTES: Patient is compliance with BS check and insulin. BS is 287mg/dl. given insulin as ordered.
--- NOTE | 2020-04-05 19:30 | NUR ---
HAND-OFF: Report given to JOE Morales.
[2020-04-05 20:00] VITALS: BP 148/90
--- NOTE | 2020-04-05 20:00 | NUR ---
NURSE NOTES: Received patient comfortably sleeping, bed lowered, alarm on.
--- NOTE | 2020-04-05 20:09 | Infectious Diseases Prog Note ---
Assessment/Plan Assessment/Plan ASSESSMENT AND PLAN: 1. rule out covid-19 infection, fevers, uri/bronchitis, chest x-ray negative for pneumonia - augmentin x 24 hrs - f/u on covid-19 pcr testing - clinically stable 2. COPD. 3. Likely diabetes and hyperglycemia - tx per primary care team 4. Hypertension. 5. Homeless. 6. Diabetes and hypertension per primary care team. 7. Renal failure. 8. Hyperglycemia. 9. No known allergies. 10. Social history negative. 11. Family history noncontributory. 12. MAR was noted. 13. Case discussed with RN. Subjective Constitutional: Reports: fatigue; Denies: fever HEENT: Denies: congestion Respiratory: Denies: shortness of breath Cardiovascular: Denies: chest pain Gastrointestinal/Abdominal: Denies: nausea, vomiting, diarrhea Genitourinary: Denies: dysuria, hematuria, frequency Neurologic: Denies: headache Psychiatric: Denies: depression Skin: Denies: rash Hematologic: Denies: bleeding Musculoskeletal: Denies: pain Allergies: Coded Allergies: No Known Allergies (Unverified , 04/01/20) Objective Vital Signs Last 24 Hour Vital Signs Date Time Temp Pulse Resp B/P (MAP) Pulse Ox O2 Delivery O2 Flow Rate FiO2 04/05/20 16:00 98.1 111 18 129/81 (97) 98 04/05/20 12:00 98.8 92 17 137/88 (104) 96 04/05/20 09:00 Room Air 04/05/20 08:51 123 147/99 04/05/20 08:00 97.7 123 17 147/99 (115) 99 04/04/20 22:12 Room Air 04/04/20 21:12 78 129/74 Height (Feet): 5 Height (Inches): 4.00 Weight (Pounds): 135 General Appearance: no acute distress HEENT: normocephalic, atraumatic, anicteric Respiratory/Chest: lungs clear, normal breath sounds, no respiratory distress, no accessory muscle use Cardiovascular: normal rate, regular rhythm, no gallop/murmur, no JVD Abdomen: normal bowel sounds, soft, non tender, no organomegaly, non distended Genitourinary: other - no resendez Extremities: no cyanosis Skin: no rash 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 Lungs/pleura: Normal. No focal consolidation. No pleural effusion or pneumothorax. Heart/mediastinum: Normal. No cardiomegaly. Soft tissues: Unremarkable. Bones: No acute fracture. Upper abdomen: Normal. IMPRESSION: No acute disease identified. Microbiology Date/Time Source Procedure Growth Status 04/01/20 19:10 Blood Blood Culture - Preliminary NO GROWTH AFTER 72 HOURS Resulted 04/01/20 21:50 Urine,Clean Catch Urine Culture - Preliminary [place] Alb[place] YEAST Resulted Laboratory Tests Test 04/05/20 05:45 White Blood Count 8.0 K/UL (4.8-10.8) Red Blood Count 4.84 M/UL (4.70-6.10) Hemoglobin 14.6 G/DL (14.2-18.0) Hematocrit 40.4 % (42.0-52.0) L Mean Corpuscular Volume 84 FL (80-99) Mean Corpuscular Hemoglobin 30.1 PG (27.0-31.0) Mean Corpuscular Hemoglobin Concent 36.0 G/DL (32.0-36.0) Red Cell Distribution Width 10.8 % (11.6-14.8) L Platelet Count 381 K/UL (150-450) Mean Platelet Volume 4.9 FL (6.5-10.1) L Neutrophils (%) (Auto) 70.4 % (45.0-75.0) Lymphocytes (%) (Auto) 22.2 % (20.0-45.0) Monocytes (%) (Auto) 4.7 % (1.0-10.0) Eosinophils (%) (Auto) 1.2 % (0.0-3.0) Basophils (%) (Auto) 1.4 % (0.0-2.0) Sodium Level 131 MMOL/L (136-145) L Potassium Level 4.5 MMOL/L (3.5-5.1) Chloride Level 95 MMOL/L (98-107) L Carbon Dioxide Level 27 MMOL/L (21-32) Anion Gap 9 mmol/L (5-15) Blood Urea Nitrogen 16 mg/dL (7-18) Creatinine 1.2 MG/DL (0.55-1.30) Estimat Glomerular Filtration Rate > 60 mL/min (>60) Glucose Level 475 MG/DL (74-106) H Calcium Level 9.2 MG/DL (8.5-10.1) Phosphorus Level 3.8 MG/DL (2.5-4.9) Magnesium Level 2.0 MG/DL (1.8-2.4) Total Bilirubin 0.5 MG/DL (0.2-1.0) Aspartate Amino Transf (AST/SGOT) 45 U/L (15-37) H Alanine Aminotransferase (ALT/SGPT) 45 U/L (12-78) Alkaline Phosphatase 71 U/L (46-116) Total Protein 6.8 G/DL (6.4-8.2) Albumin 3.1 G/DL (3.4-5.0) L Globulin 3.7 g/dL Albumin/Globulin Ratio 0.8 (1.0-2.7) L Current Medications Medications (Trade) Dose Ordered Sig/Alejandra Route PRN Reason Start Time Stop Time Status Last Admin Dose Admin Acetaminophen (Tylenol) 650 mg Q6H PRN ORAL Temp >100.5 04/04/20 19:00 05/04/20 18:59 Acetaminophen (Tylenol) 650 mg Q6H PRN ORAL Mild Pain (Pain Scale 1-3) 04/04/20 19:30 05/04/20 19:29 04/05/20 09:40 Acetaminophen/ Hydrocodone Bitart ([place] 5/325) 1 tab Q6H PRN ORAL Severe Pain (Pain Scale 7-10) 04/04/20 19:30 04/11/20 19:29 Al Hydroxide/Mg Hydroxide (Mylanta) 30 ml BIDPRN PRN ORAL upset stomach 04/04/20 19:30 05/04/20 19:29 Albuterol Sulfate (Proventil MDI) 2 puff Q8H PRN INH Shortness of Breath 04/04/20 19:15 07/03/20 19:14 Amoxicillin/ Clavulanate Potassium (Augmentin) 875 mg EVERY 12 HOURS ORAL 04/04/20 21:00 04/10/20 20:59 04/05/20 08:49 Aspirin (ASA) 81 mg DAILY ORAL 04/05/20 09:00 05/19/20 08:59 04/05/20 08:50 Dextrose (Dextrose 50%) 25 ml Q30M PRN IV Hypoglycemia 04/04/20 19:30 07/03/20 07:59 Dextrose (Dextrose 50%) 50 ml Q30M PRN IV Hypoglycemia 04/04/20 19:30 07/03/20 07:59 Escitalopram Oxalate (Lexapro) 10 mg DAILY ORAL 04/06/20 09:00 05/06/20 08:59 Famotidine (Pepcid I.v.) 20 mg BIDPRN PRN IVP upset stomach 04/04/20 19:30 05/04/20 19:29 Heparin Sodium (Porcine) (Heparin 5000 units/ml) 5,000 units EVERY 12 HOURS SUBQ 04/04/20 21:00 05/17/20 08:59 04/05/20 08:49 Insulin Aspart (NovoLOG) EVERY 4 HOURS SUBQ 04/04/20 21:00 07/03/20 08:59 04/05/20 17:35 Insulin Aspart (NovoLOG) 10 units NOVOTIAC SUBQ 04/05/20 06:30 07/03/20 07:59 04/05/20 17:34 Insulin Detemir (Levemir) 28 units BID SUBQ 04/05/20 09:00 07/01/20 10:59 04/05/20 17:36 Ipratropium [place] (Atrovent Inh) 2 puffs Q8H PRN INH WHEEZING 04/04/20 19:30 05/04/20 19:29 Metoprolol Tartrate (Lopressor) 25 mg Q12HR ORAL 04/04/20 21:00 07/01/20 08:59 04/05/20 08:51 Nitroglycerin (Ntg) 0.4 mg Q5M PRN SL Prn Chest Pain 04/05/20 12:15 05/05/20 12:14 Sodium Chloride 1,000 ml @ 125 mls/hr Q8H IV 04/04/20 19:15 05/03/20 11:59 04/05/20 17:13 Tramadol HCl (Ultram) 50 mg Q6H PRN ORAL Moderate Pain (Pain Scale 4-6) 04/04/20 19:30 04/11/20 19:29 Liv Galloway MD April 05, 2020:08
--- NOTE | 2020-04-06 00:24 | Psych Consult Progress Note ---
Psychiatry Progress Note Psychiatry Progress Note Medications Current Medications Medications (Trade) Dose Ordered Sig/Alejandra Route PRN Reason Start Time Stop Time Status Last Admin Dose Admin Acetaminophen (Tylenol) 650 mg Q6H PRN ORAL Temp >100.5 04/04/20 19:00 05/04/20 18:59 Acetaminophen (Tylenol) 650 mg Q6H PRN ORAL Mild Pain (Pain Scale 1-3) 04/04/20 19:30 05/04/20 19:29 04/05/20 09:40 Acetaminophen/ Hydrocodone Bitart ([place] 5/325) 1 tab Q6H PRN ORAL Severe Pain (Pain Scale 7-10) 04/04/20 19:30 04/11/20 19:29 Al Hydroxide/Mg Hydroxide (Mylanta) 30 ml BIDPRN PRN ORAL upset stomach 04/04/20 19:30 05/04/20 19:29 Albuterol Sulfate (Proventil MDI) 2 puff Q8H PRN INH Shortness of Breath 04/04/20 19:15 07/03/20 19:14 Amoxicillin/ Clavulanate Potassium (Augmentin) 875 mg EVERY 12 HOURS ORAL 04/04/20 21:00 04/10/20 20:59 04/05/20 20:49 Aspirin (ASA) 81 mg DAILY ORAL 04/05/20 09:00 05/19/20 08:59 04/05/20 08:50 Dextrose (Dextrose 50%) 25 ml Q30M PRN IV Hypoglycemia 04/04/20 19:30 07/03/20 07:59 Dextrose (Dextrose 50%) 50 ml Q30M PRN IV Hypoglycemia 04/04/20 19:30 07/03/20 07:59 Escitalopram Oxalate (Lexapro) 10 mg DAILY ORAL 04/06/20 09:00 05/06/20 08:59 Famotidine (Pepcid I.v.) 20 mg BIDPRN PRN IVP upset stomach 04/04/20 19:30 05/04/20 19:29 Heparin Sodium (Porcine) (Heparin 5000 units/ml) 5,000 units EVERY 12 HOURS SUBQ 04/04/20 21:00 05/17/20 08:59 04/05/20 20:50 Insulin Aspart (NovoLOG) EVERY 4 HOURS SUBQ 04/04/20 21:00 07/03/20 08:59 04/05/20 21:23 Insulin Aspart (NovoLOG) 10 units NOVOTIAC SUBQ 04/05/20 06:30 07/03/20 07:59 04/05/20 17:34 Insulin Detemir (Levemir) 28 units BID SUBQ 04/05/20 09:00 07/01/20 10:59 04/05/20 17:36 Ipratropium [place] (Atrovent Inh) 2 puffs Q8H PRN INH WHEEZING 04/04/20 19:30 05/04/20 19:29 Metoprolol Tartrate (Lopressor) 25 mg Q12HR ORAL 04/04/20 21:00 07/01/20 08:59 04/05/20 20:49 Nitroglycerin (Ntg) 0.4 mg Q5M PRN SL Prn Chest Pain 04/05/20 12:15 05/05/20 12:14 Sodium Chloride 1,000 ml @ 125 mls/hr Q8H IV 04/04/20 19:15 05/03/20 11:59 04/05/20 17:13 Tramadol HCl (Ultram) 50 mg Q6H PRN ORAL Moderate Pain (Pain Scale 4-6) 04/04/20 19:30 04/11/20 19:29 Allergies: Coded Allergies: No Known Allergies (Unverified , 04/01/20) Objective Data Height (Feet): 5 Height (Inches): 4.00 Weight (Pounds): 135 Starr Pemberton MD April 06, 2020 00:24
[2020-04-06] MEDS: NovoLOG Insulin Flexpen SUBQ SCH ×5 (01:11→11:39)
[2020-04-06 04:00] VITALS: BP 137/93
[2020-04-06 06:54] LABS: EOSINOPHILS % (AUTO) 2.1 % (0.0-3.0); HEMATOCRIT 39.8 % (42.0-52.0); HEMOGLOBIN 14.4 G/DL (14.2-18.0); LYMPHOCYTES % (AUTO) 26.7 % (20.0-45.0); MEAN CORPUSCULAR VOLUME 85 FL (80-99); MONOCYTES % (AUTO) 5.2 % (1.0-10.0); NEUTROPHILS % (AUTO) 64.9 % (45.0-75.0); PLATELET COUNT 385 K/UL (150-450); RED BLOOD COUNT 4.69 M/UL (4.70-6.10); RED CELL DISTRIBUTION WIDTH 11.2 % (11.6-14.8)
--- NOTE | 2020-04-06 07:02 | General Progress Note ---
Assessment/Plan Problem List: (1) Diabetes mellitus out of control (2) Severe acute respiratory syndrome coronavirus 2 (SARS-CoV-2) infection ruled out Assessment/Plan: continue Levemir 28 units bid continue Novolog 10 units ac tid continue Novolog sliding scale ac / hs Subjective ROS Limited/Unobtainable: Yes Allergies: Coded Allergies: No Known Allergies (Unverified , 04/01/20) Subjective events noted Item Value Date Time Bedside Blood Glucose 287 mg/dl H 04/05/20 1736 Bedside Blood Glucose 421 mg/dl H 04/05/20 1300 Bedside Blood Glucose 568 mg/dl H 04/05/20 0900 Objective Last 24 Hour Vital Signs Date Time Temp Pulse Resp B/P (MAP) Pulse Ox O2 Delivery O2 Flow Rate FiO2 04/06/20 04:00 97.2 112 18 137/93 (108) 99 04/05/20 20:49 111 129/81 04/05/20 20:07 Room Air 04/05/20 20:00 98.2 113 18 148/90 (109) 98 04/05/20 16:00 98.1 111 18 129/81 (97) 98 04/05/20 12:00 98.8 92 17 137/88 (104) 96 04/05/20 09:00 Room Air 04/05/20 08:51 123 147/99 04/05/20 08:00 97.7 123 17 147/99 (115) 99 Intake and Output 04/05/20 04/06/20 19:00 07:00 Intake Total 725 ml 1975 ml Output Total 1900 ml Balance -1175 ml 1975 ml Intake Oral 600 ml 600 ml IV Total 125 ml 1375 ml Output Urine Total 1900 ml # Voids 5 Laboratory Tests 04/06/20 05:00: White Blood Count 7.0, Red Blood Count 4.69L, Hemoglobin 14.4, Hematocrit 39.8L , Mean Corpuscular Volume 85, Mean Corpuscular Hemoglobin 30.7, Mean Corpuscular Hemoglobin Concent 36.1H, Red Cell Distribution Width 11.2L, Platelet Count 385, Mean Platelet Volume 4.4L, Neutrophils (%) (Auto) 64.9, Lymphocytes (%) (Auto) 26.7, Monocytes (%) (Auto) 5.2, Eosinophils (%) (Auto) 2.1, Basophils (%) (Auto) 1.0, Sodium Level [Pending], Potassium Level [Pending] , Chloride Level [Pending], Carbon Dioxide Level [Pending], Blood Urea Nitrogen [Pending], Creatinine [Pending], Estimat Glomerular Filtration Rate [Pending], Glucose Level [Pending], Calcium Level [Pending], Phosphorus Level [Pending], Magnesium Level [Pending], Total Bilirubin [Pending], Aspartate Amino Transf ( AST/SGOT) [Pending], Alanine Aminotransferase (ALT/SGPT) [Pending], Alkaline Phosphatase [Pending], Total Protein [Pending], Albumin [Pending], Globulin [ Pending] Height (Feet): 5 Height (Inches): 4.00 Weight (Pounds): 134 Objective Current Medications Medications (Trade) Dose Ordered Sig/Alejandra Route PRN Reason Start Time Stop Time Status Last Admin Dose Admin Acetaminophen (Tylenol) 650 mg Q6H PRN ORAL Temp >100.5 04/04/20 19:00 05/04/20 18:59 Acetaminophen (Tylenol) 650 mg Q6H PRN ORAL Mild Pain (Pain Scale 1-3) 04/04/20 19:30 05/04/20 19:29 04/05/20 09:40 Acetaminophen/ Hydrocodone Bitart ([place] 5/325) 1 tab Q6H PRN ORAL Severe Pain (Pain Scale 7-10) 04/04/20 19:30 04/11/20 19:29 Al Hydroxide/Mg Hydroxide (Mylanta) 30 ml BIDPRN PRN ORAL upset stomach 04/04/20 19:30 05/04/20 19:29 Albuterol Sulfate (Proventil MDI) 2 puff Q8H PRN INH Shortness of Breath 04/04/20 19:15 07/03/20 19:14 Amoxicillin/ Clavulanate Potassium (Augmentin) 875 mg EVERY 12 HOURS ORAL 04/04/20 21:00 04/10/20 20:59 04/05/20 20:49 Aspirin (ASA) 81 mg DAILY ORAL 04/05/20 09:00 05/19/20 08:59 04/05/20 08:50 Dextrose (Dextrose 50%) 25 ml Q30M PRN IV Hypoglycemia 04/04/20 19:30 07/03/20 07:59 Dextrose (Dextrose 50%) 50 ml Q30M PRN IV Hypoglycemia 04/04/20 19:30 07/03/20 07:59 Escitalopram Oxalate (Lexapro) 10 mg DAILY ORAL 04/06/20 09:00 05/06/20 08:59 Famotidine (Pepcid I.v.) 20 mg BIDPRN PRN IVP upset stomach 04/04/20 19:30 05/04/20 19:29 Heparin Sodium (Porcine) (Heparin 5000 units/ml) 5,000 units EVERY 12 HOURS SUBQ 04/04/20 21:00 05/17/20 08:59 04/05/20 20:50 Insulin Aspart (NovoLOG) EVERY 4 HOURS SUBQ 04/04/20 21:00 07/03/20 08:59 04/06/20 05:27 Insulin Aspart (NovoLOG) 10 units NOVOTIAC SUBQ 04/05/20 06:30 07/03/20 07:59 04/06/20 05:29 Insulin Detemir (Levemir) 28 units BID SUBQ 04/05/20 09:00 07/01/20 10:59 04/05/20 17:36 Ipratropium [place] (Atrovent Inh) 2 puffs Q8H PRN INH WHEEZING 04/04/20 19:30 05/04/20 19:29 Metoprolol Tartrate (Lopressor) 25 mg Q12HR ORAL 04/04/20 21:00 07/01/20 08:59 04/05/20 20:49 Nitroglycerin (Ntg) 0.4 mg Q5M PRN SL Prn Chest Pain 04/05/20 12:15 05/05/20 12:14 Sodium Chloride 1,000 ml @ 125 mls/hr Q8H IV 04/04/20 19:15 05/03/20 11:59 04/06/20 00:57 Tramadol HCl (Ultram) 50 mg Q6H PRN ORAL Moderate Pain (Pain Scale 4-6) 04/04/20 19:30 04/11/20 19:29 Keenan Burnham MD April 06, 2020 07:02
--- NOTE | 2020-04-06 07:13 | NUR ---
NURSE NOTES: Blood sugar at 0100 AM is 501,gave 12 units of novolog subcut.Tried to leave message to Dr Burnham but won't accept new messages.
--- NOTE | 2020-04-06 07:21 | NUR ---
HAND-OFF: Report given to Kelechi Ochoa RN/ JOE Alicea.
[2020-04-06 07:24] LABS: ALANINE AMINOTRANSFERASE 75 U/L (12-78); ALBUMIN 2.8 G/DL (3.4-5.0); ALBUMIN/GLOBULIN RATIO 0.8 (1.0-2.7); ALKALINE PHOSPHATASE 77 U/L (46-116); ANION GAP 11 mmol/L (5-15); ASPARTATE AMINO TRANSFERASE 110 U/L (15-37); BILIRUBIN,TOTAL 0.3 MG/DL (0.2-1.0); BLOOD UREA NITROGEN 23 mg/dL (7-18); CALCIUM 9.1 MG/DL (8.5-10.1); CARBON DIOXIDE 27 MMOL/L (21-32); CHLORIDE 97 MMOL/L (98-107); CREATININE 1.2 MG/DL (0.55-1.30); PHOSPHORUS 3.5 MG/DL (2.5-4.9); POTASSIUM 4.3 MMOL/L (3.5-5.1); SODIUM 134 MMOL/L (136-145)
[2020-04-06] MEDS: Aspirin Baby 81mg ORAL SCH (08:31)
[2020-04-06] MEDS: Augmentin 875mg Tab ORAL SCH (08:31)
[2020-04-06] MEDS: Levemir Flexpen SUBQ SCH (08:32)
[2020-04-06] MEDS: Heparin 5000 units/ml inj SUBQ SCH (08:32)
--- NOTE | 2020-04-06 08:45 | NUR ---
NURSE NOTES: PT AXOX4. BLOOD SUGAR WAS CHECKED AT BEDSIDE. RECEIVED CRITICAL HIGH VALUE. PT HAS LOTS OF JUICES AND FOOD AT BEDSIDE. RN EDUCATED PT TO STOP EATING DUE TO CRITICALLY HIGH BLOOD GLUCOSE LEVEL AND PT WILL NEED ORDERED INSULIN TO BRING DOWN GLUCOSE LEVEL. WHEN RN RETURNED WITH NOVOLOG AND LEVEMIR, PT REFUSED MEDICATION. PT STATED "YOU CAN'T BE PLAYING GOD WITH ME. I'M GONNA NEED TO MOVE TO A NEW FLOOR WITH A NEW NURSE". RN EDUCATED PT THAT HE URGENTLY NEEDS TO TAKE HIS FAST ACTING AND LONG ACTING INSULIN RIGHT NOW AND PT CAN SPEAK WITH CHARGE NURSE ABOUT CHANGING NURSE". PT CONTINUED TO TALK ABOUT RN NOT BEING COMPETENT TO TAKE CARE OF PT. RN ASKED PT TWICE IF HE COULD GIVE A CLEAR YES OR NO ANSWER TO TAKING HIS MEDICATIONS. PT CONTINUED TO REFUSE CARE AND MEDICATIONS. RN EDUCATED PT ON RISKS OF NOT TAKING SCHEDULED MEDS. PT CONTINUED TO REFUSE AND TOLD RN TO GET OUT OF HIS ROOM. RN MADE PERSONAL INVESTMENT ADVISER AWARE AND SPOKE TO DR AN AND MADE AWARE. PER DR AN, NO NEW ORDERS. RN AND CRN LEFT MESSAGE FOR DR CASTREJON REGARDING PT'S CONDITION. WILL CONTINUE TO MONITOR.
--- NOTE | 2020-04-06 10:20 | NUR ---
RD ASSESSMENT & RECOMMENDATIONS SEE CARE ACTIVITY FOR COMPLETE ASSESSMENT DAILY ESTIMATED NEEDS: Needs based on DM 60.8kg 25-30 kcals/kg 6817-9934 total kcals 1-1.5 g protein/kg 61-91 g total protein 25-30 mL/kg 5132-0072 total fluid mLs NUTRITION DIAGNOSIS: Altered nutrition related lab values r/t diabetes as evidenced by elevated BG (953 on adm-> 449) w/ elev POC (300's-500's). CURRENT DIET: CCHO MED PO DIET RECOMMENDATIONS: rec diet change to CCHO LOW ADDITIONAL RECOMMENDATIONS: 1) Rec diet change to CCHO LOW for less carb High protein snacks in b/w meals, rec no added carbs at this time in addition to allotted as per diet order. 2) Obtain a standing weight as able
--- NOTE | 2020-04-06 11:15 | NUR ---
NURSE NOTES: DR LE AT NURSE'S STATION. MADE AWARE PT IS REFUSING NOVOLOG AND ORAL MEDICATIONS DESPITE EDUCATION ON RISKS. PER DR LE, PLACE PT ON NPO DUE TO CRITICAL BLOOD GLUCOSE LEVEL AND PT BEING NON-COMPLIANT. IF PT WANTS TO LEAVE AMA, PT MAY LEAVE. PER DR LE, SHE SPOKE TO DR GONZALEZ AND DETERMINED THIS IS THE BEST PLAN OF TREATMENT. IF PT ALLOWS TO HAVE BLOOD SUGAR CHECK AND INSULIN, MD MAY PLACE PT ON IV INSULIN. RN TO UPDATE DR LE.
--- NOTE | 2020-04-06 11:21 | Pulmonology Progress Note ---
Subjective ROS Limited/Unobtainable: Yes Interval Events: Feeling better Constitutional: Reports: fatigue; Denies: fever HEENT: Repors: no symptoms Respiratory: Reports: no symptoms Cardiovascular: Reports: no symptoms Gastrointestinal/Abdominal: Denies: nausea, vomiting, diarrhea Psychiatric: Denies: depression Skin: Denies: rash Musculoskeletal: Denies: pain Allergies: Coded Allergies: No Known Allergies (Unverified , 04/01/20) Objective Last 24 Hour Vital Signs Date Time Temp Pulse Resp B/P (MAP) Pulse Ox O2 Delivery O2 Flow Rate FiO2 04/06/20 04:00 97.2 112 18 137/93 (108) 99 04/05/20 20:49 111 129/81 04/05/20 20:07 Room Air 04/05/20 20:00 98.2 113 18 148/90 (109) 98 04/05/20 16:00 98.1 111 18 129/81 (97) 98 04/05/20 12:00 98.8 92 17 137/88 (104) 96 Intake and Output 04/05/20 04/06/20 19:00 07:00 Intake Total 725 ml 2100 ml Output Total 1900 ml Balance -1175 ml 2100 ml Intake Oral 600 ml 600 ml IV Total 125 ml 1500 ml Output Urine Total 1900 ml # Voids 5 General Appearance: no acute distress HEENT: normocephalic Respiratory: chest wall non-tender, lungs clear Cardiovascular: normal peripheral pulses, normal rate Abdomen: normal bowel sounds Laboratory Tests 04/06/20 05:00: White Blood Count 7.0, Red Blood Count 4.69L, Hemoglobin 14.4, Hematocrit 39.8L , Mean Corpuscular Volume 85, Mean Corpuscular Hemoglobin 30.7, Mean Corpuscular Hemoglobin Concent 36.1H, Red Cell Distribution Width 11.2L, Platelet Count 385, Mean Platelet Volume 4.4L, Neutrophils (%) (Auto) 64.9, Lymphocytes (%) (Auto) 26.7, Monocytes (%) (Auto) 5.2, Eosinophils (%) (Auto) 2.1, Basophils (%) (Auto) 1.0, Sodium Level 134L, Potassium Level 4.3, Chloride Level 97L, Carbon Dioxide Level 27, Anion Gap 11, Blood Urea Nitrogen 23H, Creatinine 1.2, Estimat Glomerular Filtration Rate > 60, Glucose Level 449H, Calcium Level 9.1, Phosphorus Level 3.5, Magnesium Level 2.1, Total Bilirubin 0.3, Aspartate Amino Transf (AST/SGOT) 110H, Alanine Aminotransferase (ALT/SGPT ) 75, Alkaline Phosphatase 77, Total Protein 6.5, Albumin 2.8L, Globulin 3.7, Albumin/Globulin Ratio 0.8L Current Medications Medications (Trade) Dose Ordered Sig/Alejandra Route PRN Reason Start Time Stop Time Status Last Admin Dose Admin Acetaminophen (Tylenol) 650 mg Q6H PRN ORAL Temp >100.5 04/04/20 19:00 05/04/20 18:59 Acetaminophen (Tylenol) 650 mg Q6H PRN ORAL Mild Pain (Pain Scale 1-3) 04/04/20 19:30 05/04/20 19:29 04/05/20 09:40 Acetaminophen/ Hydrocodone Bitart ([place] 5/325) 1 tab Q6H PRN ORAL Severe Pain (Pain Scale 7-10) 04/04/20 19:30 04/11/20 19:29 Al Hydroxide/Mg Hydroxide (Mylanta) 30 ml BIDPRN PRN ORAL upset stomach 04/04/20 19:30 05/04/20 19:29 Albuterol Sulfate (Proventil MDI) 2 puff Q8H PRN INH Shortness of Breath 04/04/20 19:15 07/03/20 19:14 Amoxicillin/ Clavulanate Potassium (Augmentin) 875 mg EVERY 12 HOURS ORAL 04/04/20 21:00 04/10/20 20:59 04/05/20 20:49 Aspirin (ASA) 81 mg DAILY ORAL 04/05/20 09:00 05/19/20 08:59 04/05/20 08:50 Dextrose (Dextrose 50%) 25 ml Q30M PRN IV Hypoglycemia 04/04/20 19:30 07/03/20 07:59 Dextrose (Dextrose 50%) 50 ml Q30M PRN IV Hypoglycemia 04/04/20 19:30 07/03/20 07:59 Escitalopram Oxalate (Lexapro) 10 mg DAILY ORAL 04/06/20 09:00 05/06/20 08:59 Famotidine (Pepcid I.v.) 20 mg BIDPRN PRN IVP upset stomach 04/04/20 19:30 05/04/20 19:29 Heparin Sodium (Porcine) (Heparin 5000 units/ml) 5,000 units EVERY 12 HOURS SUBQ 04/04/20 21:00 05/17/20 08:59 04/05/20 20:50 Insulin Aspart (NovoLOG) EVERY 4 HOURS SUBQ 04/04/20 21:00 07/03/20 08:59 04/06/20 05:27 Insulin Aspart (NovoLOG) 10 units NOVOTIAC SUBQ 04/05/20 06:30 07/03/20 07:59 04/06/20 05:29 Insulin Detemir (Levemir) 28 units BID SUBQ 04/05/20 09:00 07/01/20 10:59 04/05/20 17:36 Ipratropium [place] (Atrovent Inh) 2 puffs Q8H PRN INH WHEEZING 04/04/20 19:30 05/04/20 19:29 Metoprolol Tartrate (Lopressor) 25 mg Q12HR ORAL 04/04/20 21:00 07/01/20 08:59 04/05/20 20:49 Nitroglycerin (Ntg) 0.4 mg Q5M PRN SL Prn Chest Pain 04/05/20 12:15 05/05/20 12:14 Sodium Chloride 1,000 ml @ 125 mls/hr Q8H IV 04/04/20 19:15 05/03/20 11:59 04/06/20 00:57 Tramadol HCl (Ultram) 50 mg Q6H PRN ORAL Moderate Pain (Pain Scale 4-6) 04/04/20 19:30 04/11/20 19:29 Assessment/Plan Assessment/Plan IMPRESSION: 1. Exacerbation of COPD. 2. Hyperglycemia. 3. Hypertension. 4. Homeless. 5. Renal failure. 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 Continue O2 prn; currently saturating well on RA Negative COVID-19 pcr. Chuyita Flaherty Omar Syed MD April 06, 2020 11:21
--- NOTE | 2020-04-06 13:00 | NUR ---
NURSE NOTES: PT REFUSED BLOOD SUGAR CHECK. PT EDUCATED MD ORDER TO BE NPO TO BRING DOWN BLOOD GLUCOSE LEVELS. PT STATED HE WANTS TO BE DISCHARGED. RN RELAYED INFORMATION TO DR LE. PER MD, WE CANNOT DISCHARGE PT DUE TO ELEVATED BLOOD GLUCOSE LEVELS. PT WAS INFORMED WHY MD WILL NOT DISCHARGE PT. PT STATES HE WANTS TO LEAVE. RN DISCONTINUED IV ACCESS AND EDUCATED PT ON S/S HYPERGLYCEMIA. PT DID NOT VERBALIZE UNDERSTANDING BUT TALKED ABOUT HOW IT WASN'T RIGHT FOR MD TO NOT DISCHARGE HIM. PT REFUSED TO GO OVER BELONGINGS OR SIGN OTHER PAPERWORK, STATING HE WAS READY TO LEAVE. BOX NAILER ESCORTED PT OUT OF HOSPITAL VIA WHEELCHAIR TO BUS STOP PER PT'S REQUEST. CRN MADE AWARE AND MADE AWARE.
--- NOTE | 2020-04-06 15:35 | NUR ---
*-* INSURANCE *-* ALL CLINICALS AND REVIEWS HAVE BEEN FAXED TO: [facility] ph#[phone] fax#[phone] & ph#[phone] fax#[phone] Addendum: 04/06/20 at 1539 by GAMALIEL TALAVERA CM NO DISCHARGE SUMMARY IN THE SYSTEM UNABLE TO FAX
--- NOTE | 2020-04-06 16:28 | Cardiac Electrophysiology PN ---
Assessment/Plan Assessment/Plan 1. CP. Ruled out for [place]. 2. HTN On Lopressor 25 bid 3. Uncontrolled DM 4. SOB. Covid still pending 5. Noncompliance DW RN DC today Subjective Subjective Uncooperative and nocompliant. DC in progress No CP or SOB Objective Last 24 Hour Vital Signs Date Time Temp Pulse Resp B/P (MAP) Pulse Ox O2 Delivery O2 Flow Rate FiO2 04/06/20 04:00 97.2 112 18 137/93 (108) 99 04/05/20 20:49 111 129/81 04/05/20 20:07 Room Air 04/05/20 20:00 98.2 113 18 148/90 (109) 98 Intake and Output 04/05/20 04/06/20 19:00 07:00 Intake Total 725 ml 2100 ml Output Total 1900 ml Balance -1175 ml 2100 ml Intake Oral 600 ml 600 ml IV Total 125 ml 1500 ml Output Urine Total 1900 ml # Voids 5 Laboratory Tests Test 04/06/20 05:00 White Blood Count 7.0 K/UL (4.8-10.8) Red Blood Count 4.69 M/UL (4.70-6.10) L Hemoglobin 14.4 G/DL (14.2-18.0) Hematocrit 39.8 % (42.0-52.0) L Mean Corpuscular Volume 85 FL (80-99) Mean Corpuscular Hemoglobin 30.7 PG (27.0-31.0) Mean Corpuscular Hemoglobin Concent 36.1 G/DL (32.0-36.0) H Red Cell Distribution Width 11.2 % (11.6-14.8) L Platelet Count 385 K/UL (150-450) Mean Platelet Volume 4.4 FL (6.5-10.1) L Neutrophils (%) (Auto) 64.9 % (45.0-75.0) Lymphocytes (%) (Auto) 26.7 % (20.0-45.0) Monocytes (%) (Auto) 5.2 % (1.0-10.0) Eosinophils (%) (Auto) 2.1 % (0.0-3.0) Basophils (%) (Auto) 1.0 % (0.0-2.0) Sodium Level 134 MMOL/L (136-145) L Potassium Level 4.3 MMOL/L (3.5-5.1) Chloride Level 97 MMOL/L (98-107) L Carbon Dioxide Level 27 MMOL/L (21-32) Anion Gap 11 mmol/L (5-15) Blood Urea Nitrogen 23 mg/dL (7-18) H Creatinine 1.2 MG/DL (0.55-1.30) Estimat Glomerular Filtration Rate > 60 mL/min (>60) Glucose Level 449 MG/DL (74-106) H Calcium Level 9.1 MG/DL (8.5-10.1) Phosphorus Level 3.5 MG/DL (2.5-4.9) Magnesium Level 2.1 MG/DL (1.8-2.4) Total Bilirubin 0.3 MG/DL (0.2-1.0) Aspartate Amino Transf (AST/SGOT) 110 U/L (15-37) H Alanine Aminotransferase (ALT/SGPT) 75 U/L (12-78) Alkaline Phosphatase 77 U/L (46-116) Total Protein 6.5 G/DL (6.4-8.2) Albumin 2.8 G/DL (3.4-5.0) L Globulin 3.7 g/dL Albumin/Globulin Ratio 0.8 (1.0-2.7) L Objective EENT: PERRL/EOMI. No JVD Cardiovascular: normal rate, regular rhythm, regularly irregular Respiratory/Chest: lungs clear, normal breath sounds, no respiratory distress Abdomen: non tender, soft Neurologic: precinct captain II-XII grossly normal, oriented x 3 Skin: warm/dry Dirk Velazquez MD April 06, 2020 16:28
--- NOTE | 2020-04-06 19:37 | Discharge Summary ---
Discharge Summary Hospital Course Date of Admission April 01, 2020 at 18:38 Date of Discharge April 06, 2020 at 13:25 Admitting Diagnosis resp distress covid rule out HPI Pt is a 53 YO M with HTN, HLD, DM II, COPD/Asthma presenting with chest pain, and lightheadedness. Patient is a very poor historian and tangential during conversation and unable to provide useful information. He states that he came to the ED today because of chest discomfort. Patient is asked to describe the nature of his chest pain but he continues to complain of how bad the hospital food is and is requesting for warm food. Patient reports taking insulin at home but does not know what kind. She does not know the name of her home medications. She reports of nausea, lightheadedness, and vomiting. No fever, chills, sick contacts or recent travel. On arrival to the ED, vitals significant or HR: 120 and BP: 103/65 and T:100.8. CMP significant for serum g with no evidence of DKA. She is admitted for further observation and medical management. Hospital Course Assessment #COPD Exacerbation; CXR w/o obvious infiltrate #R/O COVID, pending predictive markers #HHS w/ associated Osmotic Diuresis and Hypovolemia/Hyponatremia #Acute Renal Failure 2/2 Dehydration #HTN #Homelessness Plan Pending COVID, obtain predictive markers ( CRP, Ferritin, LDH, Ddimer) Prednisone PO taper Lynch Cx Weight based insulin dosing, goal blood sugar less than 180 while inpatient, insulin long acting Levemir PRN BP meds for now , once renal function improves add Dmitry-Inhibitor for renal protection NS @ 75 cc/hr s/p aggressive bolus in ER Social Work Consult DVT ppx Diet 04/06: Patient continued to refuse insulin and medication. He was made NPO as blood sugar was extremely elevated, and he ultimately decided to leave AMA Discharge Discharge Vital Signs Last Vital Signs Date Time Temp Pulse Resp B/P (MAP) Pulse Ox O2 Delivery O2 Flow Rate FiO2 04/06/20 04:00 97.2 112 18 137/93 (108) 99 04/05/20 20:07 Room Air Discharge Disposition Patient left AMA Marie Shoemaker D.O. April 06, 2020 19:37
--- NOTE | 2020-04-07 13:49 | NUR ---
*-* INSURANCE *-* DISCHARGE SUMMARY HAS BEEN FAXED TO: [facility]#[phone] fax#[phone] & Suraj Champagne ph#[phone] fax#[phone]
--- NOTE | 2020-04-08 08:30 | Progress Note ---
This is a late entry due to system being down last night. SUBJECTIVE: The patient is very manipulative on purpose, refusing to take his insulin to increase his sugar, possible for secondary gain. The patient has behavior issues, uncooperative, high. I discussed at length with the primary physician. MENTAL STATUS EXAMINATION: The patient is oriented times self, place, situation, and date. Mood is dysphoric. Affect is constricted, congruent with mood. Thought process is concrete. Thought content, no suicidal or homicidal ideation. Cognition is impaired. ASSESSMENT: Cluster B personality. PLAN: 1. I did recommend to place the patient on NPO to control his blood sugar as he is refusing the insulin and that danger to the patient. 2. The patient is not an imminent danger to self or others. Starr Pemberton M.D. DR: Mike JOB#: [id number] CC: JANAE
[2020-04-17] MEDS ORDERED: DiphenhydrAMINE 25mg Tab ORAL PRN (19:15)
[2020-04-17] MEDS ORDERED: Miralax 17gm pkt ORAL PRN ×2 (19:15→19:30)
[2020-04-17] MEDS ORDERED: Mylanta II UD 30ml ORAL PRN (19:15)
[2020-04-17] MEDS ORDERED: Docusate 100mg cap ORAL SCH (21:00)
== END 2020-04-06 13:25 | disposition left against medical advice (07) | DRG 140 ==
LOC: EMR 18:18 → 2E 18:38 → EDBD 18:38 → MERGE 18:38 → EDBEDREQSVC 18:50 → EDBEDREQ 21:45 → 4E 04-04 17:59
DX: J44.1 Chronic obstructive pulmonary disease with (acute) exacerbation (principal); E11.00 Type 2 diabetes mellitus with hyperosmolarity without nonketotic hyperglycemic-hyperosmolar coma (NKHHC); N17.9 Acute kidney failure, unspecified; R50.9 Fever, unspecified; E87.1 Hypo-osmolality and hyponatremia; I10 Essential (primary) hypertension; E86.0 Dehydration; Z91.14 Patient's other noncompliance with medication regimen; Z79.4 Long term (current) use of insulin; Z11.59 Encounter for screening for other viral diseases
CPT/HCPCS: 36415; 36600; 71045; 80048; 80053; 81003; 82550; 82553; 82728; 82803; 82962; 83605; 83615; 83735; 84100; 84484; 85025; 85379; 85610; 85730; 86140; 87040; 87086; 87635; 93005; 93306; 96361; 96365; 96375; 99285; J1815; J7030; S5561

== ENCOUNTER 2020-04-17 13:33 | Inpatient (IN) | payer OTHER ==
[~2020-04-17] VITALS: Ht 170.2 cm; Wt 44.9 kg
[2020-04-17 13:33] VITALS: BP 120/88
[2020-04-17 14:00] LABS: BASOPHILS % (AUTO) 2.5 % (0.0-2.0); EOSINOPHILS % (AUTO) 0.3 % (0.0-3.0); HEMATOCRIT 40.1 % (42.0-52.0); HEMOGLOBIN 14.2 G/DL (14.2-18.0); LYMPHOCYTES % (AUTO) 13.5 % (20.0-45.0); MEAN CORPUSCULAR VOLUME 86 FL (80-99); MONOCYTES % (AUTO) 5.4 % (1.0-10.0); NEUTROPHILS % (AUTO) 78.4 % (45.0-75.0); PLATELET COUNT 376 K/UL (150-450); RED BLOOD COUNT 4.67 M/UL (4.70-6.10); RED CELL DISTRIBUTION WIDTH 11.3 % (11.6-14.8); WHITE BLOOD COUNT 7.8 K/UL (4.8-10.8)
[2020-04-17] MEDS ORDERED: Insulin Human Regular 100units/ml 3ml IV ONE ×2 (14:00→16:15)
[2020-04-17 14:20] LABS: ALANINE AMINOTRANSFERASE 24 U/L (12-78); ALBUMIN 3.3 G/DL (3.4-5.0); ALBUMIN/GLOBULIN RATIO 0.8 (1.0-2.7); ALKALINE PHOSPHATASE 88 U/L (46-116); ANION GAP 18 mmol/L (5-15); ASPARTATE AMINO TRANSFERASE 10 U/L (15-37); BILIRUBIN,TOTAL 0.6 MG/DL (0.2-1.0); BLOOD UREA NITROGEN 47 mg/dL (7-18); CALCIUM 9.6 MG/DL (8.5-10.1); CARBON DIOXIDE 20 MMOL/L (21-32); CHLORIDE 83 MMOL/L (98-107); CREATININE 1.9 MG/DL (0.55-1.30); POTASSIUM 5.7 MMOL/L (3.5-5.1); SODIUM 121 MMOL/L (136-145)
[2020-04-17 14:33] LABS: APPEARANCE,URINE CLEAR; BILIRUBIN, URINE NEGATIVE (NEGATIVE); COLOR,URINE PALE YELLOW; GLUCOSE, URINE (UA) 4+ (NEGATIVE); KETONES,URINE 3+ (NEGATIVE); LEUKOCYTE ESTERASE ,URINE NEGATIVE (NEGATIVE); NITRITE,URINE NEGATIVE (NEGATIVE); PH,URINE 5 (4.5-8.0); PROTEIN,URINE NEGATIVE (NEGATIVE); UROBILINOGEN,URINE NORMAL MG/DL (0.0-1.0)
[2020-04-17 15:26] VITALS: BP 118/82
--- NOTE | 2020-04-17 16:11 | Emergency Room Report ---
History of Present Illness General Chief Complaint: Abnormal Labs Source: Patient, EMS Present Illness HPI Patient presents with complaints of elevated glucose levels patient was recently in the hospital somewhat noncompliant He reports that his glucose has began elevated and is having difficulty controlling the levels Upon arrival patient is eating candy And when asked to Stop this he continued to eat the candy denies any chest pain denies any abdominal pain denies any vomiting or diarrhea Allergies: Coded Allergies: No Known Allergies (Unverified , 04/01/20) COVID-19 Screening Contact w/high risk pt: No Recent Travel to affected area: No Experienced COVID-19 symptoms?: No COVID-19 symptoms experienced: Fever (T>100.4F or >38C), Cough COVID-19 Testing performed LEAD PERFORMANCE SUPPORT ANALYST: No Patient History Past Medical History: see triage record Reviewed Nursing Documentation: PMH: Agreed; PSxH: Agreed Nursing Documentation-PMH Hx Cardiac Problems: Yes Hx Hypertension: Yes Hx Asthma: Yes Hx COPD: Yes Hx Diabetes: Yes Review of Systems All Other Systems: negative except mentioned in HPI Physical Exam Vital Signs Date Time Temp Pulse Resp B/P (MAP) Pulse Ox O2 Delivery O2 Flow Rate FiO2 04/17/20 13:27 97.7 109 19 125/91 (102) 98 Room Air Sp02 EP Interpretation: reviewed, normal General Appearance: no apparent distress Head: normocephalic, atraumatic Eyes: bilateral eye PERRL, bilateral eye EOMI ENT: dry mucus membranes Neck: supple, no meningismus Respiratory: lungs clear, no respiratory distress, no retraction Cardiovascular #1: tachycardia Gastrointestinal: non tender, soft Musculoskeletal: normal inspection Neurologic: alert, curtain 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 III-XII nml as tested, oriented x3 Psychiatric: other - Somewhat combative and anxious Skin: no rash Lymphatic: no adenopathy Procedures Critical Care Time Critical Care Time 50 minutes for multiple re-evaluations critical lab findings concerning for renal failure not including any procedural time Medical Decision Making Diagnostic Impression: Primary Impression: DKA (diabetic ketoacidoses) ER Course Patient recently left the hospital AGAINST MEDICAL ADVICE now returns with findings concerning for DKA , Hyperglycemia electrolyte abnormality Patient continues to be noncompliant She is noncompliant with medical care here in the emergency room at times refusing Accu-Chek Patient's blood work however shows significant abnormality concern for early DKA patient has further IV hydration and insulin drip initiated And requires inpatient care , Labs Test 04/17/20 13:50 04/17/20 14:06 White Blood Count 7.8 K/UL (4.8-10.8) Red Blood Count 4.67 M/UL (4.70-6.10) Hemoglobin 14.2 G/DL (14.2-18.0) Hematocrit 40.1 % (42.0-52.0) Mean Corpuscular Volume 86 FL (80-99) Mean Corpuscular Hemoglobin 30.5 PG (27.0-31.0) Mean Corpuscular Hemoglobin Concent 35.5 G/DL (32.0-36.0) Red Cell Distribution Width 11.3 % (11.6-14.8) Platelet Count 376 K/UL (150-450) Mean Platelet Volume 5.1 FL (6.5-10.1) Neutrophils (%) (Auto) 78.4 % (45.0-75.0) Lymphocytes (%) (Auto) 13.5 % (20.0-45.0) Monocytes (%) (Auto) 5.4 % (1.0-10.0) Eosinophils (%) (Auto) 0.3 % (0.0-3.0) Basophils (%) (Auto) 2.5 % (0.0-2.0) Sodium Level 121 MMOL/L (136-145) Potassium Level 5.7 MMOL/L (3.5-5.1) Chloride Level 83 MMOL/L (98-107) Carbon Dioxide Level 20 MMOL/L (21-32) Anion Gap 18 mmol/L (5-15) Blood Urea Nitrogen 47 mg/dL (7-18) Creatinine 1.9 MG/DL (0.55-1.30) Estimat Glomerular Filtration Rate 45.2 mL/min (>60) Glucose Level 805 MG/DL (74-106) Calcium Level 9.6 MG/DL (8.5-10.1) Magnesium Level 2.3 MG/DL (1.8-2.4) Total Bilirubin 0.6 MG/DL (0.2-1.0) Aspartate Amino Transf (AST/SGOT) 10 U/L (15-37) Alanine Aminotransferase (ALT/SGPT) 24 U/L (12-78) Alkaline Phosphatase 88 U/L (46-116) Total Protein 7.2 G/DL (6.4-8.2) Albumin 3.3 G/DL (3.4-5.0) Globulin 3.9 g/dL Albumin/Globulin Ratio 0.8 (1.0-2.7) Acetone Level Positive-small (NEGATIVE) Urine Color Pale yellow Urine Appearance Clear Urine pH 5 (4.5-8.0) Urine Specific [place] 1.010 (1.005-1.035) Urine Protein Negative (NEGATIVE) Urine Glucose (UA) 4+ (NEGATIVE) Urine Ketones 3+ (NEGATIVE) Urine Blood Negative (NEGATIVE) Urine Nitrite Negative (NEGATIVE) Urine Bilirubin Negative (NEGATIVE) Urine Urobilinogen Normal MG/DL (0.0-1.0) Urine Leukocyte Esterase Negative (NEGATIVE) Urine Opiates Screen Negative (NEGATIVE) Urine Barbiturates Screen Negative (NEGATIVE) Phencyclidine (PCP) Screen Negative (NEGATIVE) Urine Amphetamines Screen Negative (NEGATIVE) Urine Benzodiazepines Screen Negative (NEGATIVE) Urine Cocaine Screen Negative (NEGATIVE) Urine Marijuana (THC) Screen Negative (NEGATIVE) Rhythm Strip Diag. Results EP Interpretation: yes Rate: 120 Rhythm: no PVC's, no ectopy, other - Sinus tach Last Vital Signs Date Time Temp Pulse Resp B/P (MAP) Pulse Ox O2 Delivery O2 Flow Rate FiO2 04/17/20 13:33 98.0 103 19 120/88 98 Room Air Status: improved Disposition: ADMITTED INPATIENT Condition: Serious Scripts No Active Prescriptions or Reported Meds Referrals: NON PHYSICIAN (PCP) Marium Joshi 7, 2020 16:11
[2020-04-17] MEDS ORDERED: Insulin Reg 100 units Premix 100 ML IVPB SCH (16:45)
[2020-04-17] MEDS ORDERED: Miralax 17gm pkt ORAL PRN (19:30)
[2020-04-17] MEDS ORDERED: Mylanta II UD 30ml ORAL PRN (19:30)
[2020-04-17 19:35] VITALS: BP 102/71
[2020-04-17] MEDS ORDERED: Milk of Magnesia 30ml Ud ORAL PRN (21:00)
[2020-04-17] MEDS ORDERED: Heparin 5000 units/ml inj SUBQ SCH (21:00)
[2020-04-17 21:10] LABS: ANION GAP 10 mmol/L (5-15); BLOOD UREA NITROGEN 35 mg/dL (7-18); CALCIUM 8.5 MG/DL (8.5-10.1); CARBON DIOXIDE 24 MMOL/L (21-32); CHLORIDE 100 MMOL/L (98-107); CREATININE 1.6 MG/DL (0.55-1.30); SODIUM 134 MMOL/L (136-145)
[2020-04-17 21:15] VITALS: BP 111/77
[2020-04-17] MEDS ORDERED: Morphine Sulfate 4mg/ml Inj (IV USE ONLY) IVP SCH (23:00)
[2020-04-17] MEDS ORDERED: Levemir Flexpen SUBQ SCH (23:00)
[2020-04-18] VITALS (8 sets, daily range): BP systolic 108–153; BP diastolic 69–96
[2020-04-18 04:49] LABS: BASOPHILS % (AUTO) 1.3 % (0.0-2.0); EOSINOPHILS % (AUTO) 1.2 % (0.0-3.0); HEMATOCRIT 36.7 % (42.0-52.0); HEMOGLOBIN 13.5 G/DL (14.2-18.0); LYMPHOCYTES % (AUTO) 13.3 % (20.0-45.0); MEAN CORPUSCULAR VOLUME 84 FL (80-99); MONOCYTES % (AUTO) 3.9 % (1.0-10.0); NEUTROPHILS % (AUTO) 80.4 % (45.0-75.0); PLATELET COUNT 378 K/UL (150-450); RED BLOOD COUNT 4.36 M/UL (4.70-6.10); RED CELL DISTRIBUTION WIDTH 11.3 % (11.6-14.8); WHITE BLOOD COUNT 9.4 K/UL (4.8-10.8)
[2020-04-18 05:11] LABS: ALANINE AMINOTRANSFERASE 14 U/L (12-78); ALBUMIN 3.1 G/DL (3.4-5.0); ALBUMIN/GLOBULIN RATIO 0.9 (1.0-2.7); ALKALINE PHOSPHATASE 81 U/L (46-116); ANION GAP 11 mmol/L (5-15); ASPARTATE AMINO TRANSFERASE 20 U/L (15-37); BILIRUBIN,TOTAL 0.3 MG/DL (0.2-1.0); BLOOD UREA NITROGEN 31 mg/dL (7-18); CALCIUM 8.9 MG/DL (8.5-10.1); CARBON DIOXIDE 25 MMOL/L (21-32); CHLORIDE 99 MMOL/L (98-107); CREATININE 1.3 MG/DL (0.55-1.30); POTASSIUM 4.5 MMOL/L (3.5-5.1); SODIUM 134 MMOL/L (136-145)
[2020-04-18] MEDS ORDERED: Insulin Human Regular 100units/ml 3ml IV PRN ×2 (06:15)
[2020-04-18] MEDS ORDERED: Insulin Rate Change 1 Each MISC PRN (06:15)
[2020-04-18] MEDS ORDERED: Insulin Reg 100 units Premix 100 ML IVPB SCH (06:15)
[2020-04-18] MEDS ORDERED: Docusate 100mg cap ORAL SCH (09:00)
[2020-04-18] MEDS: NovoLOG Insulin Flexpen SUBQ SCH ×8 (09:00→16:50)
[2020-04-18] MEDS: Levemir Flexpen SUBQ SCH (09:00)
[2020-04-18] MEDS ORDERED: Heparin 5000 units/ml inj SUBQ SCH (09:00)
--- NOTE | 2020-04-18 12:47 | History and Physical ---
History of Present Illness General Date patient seen: Apr 18, 2020 Time patient seen: 10:45 Reason for Hospitalization: Abnormal Labs Present Illness HPI Mr. Cifuentes is a 54 year old male with DM1, presenting via 911 after collapsing at 711, did not lose consciousness. He tells me he recently became "blind," due to DM, and couldn't see well so he didn't inject himself insulin. He lives by himself and obviously needs a lot of assistance, and is getting some help via a community resource. He has family in the area and seems to be alienated. Currently, his main concern is hunger and wants to be fed. denies any other symptoms such as fever, chills, chest pain, SOB, cough, abdominal pain. Allergies: Coded Allergies: No Known Allergies (Unverified , 01/18/20) COVID-19 Screening Contact w/high risk pt: No Recent Travel to affected area: No Experienced COVID-19 symptoms?: No COVID-19 symptoms experienced: Fever (T>100.4F or >38C), Cough Patient History Healthcare decision maker Resuscitation status Advanced Directive on File Review of Systems Constitutional: Reports: other - hungry; Denies: no symptoms, see HPI, chills, sweats, fever, malaise, weakness Eye: Denies: no symptoms, see HPI, eye pain, blurred vision, tearing, double vision, nose pain, nose congestion, acuity changes, discharge, other ENT: Denies: no symptoms, see HPI, ear pain, ear discharge, nose pain, nose congestion, throat pain, throat swelling, mouth pain, hearing loss, nasal discharge, other Respiratory: Denies: no symptoms, see HPI, cough, orthopnea, shortness of breath, stridor, wheezing, KWONG, sputum, other Cardiovascular: Denies: no symptoms, see HPI, chest pain, edema, palpitations, syncope, PND, other Gastrointestinal: Denies: no symptoms, see HPI, abdominal pain, constipation, diarrhea, nausea, vomiting, melena, hematemesis, other Genitourinary: Denies: no symptoms, see HPI, discharge, dysuria, frequency, hematuria, pain, retention, incontinence, urgency, vag bleed/dc, other Musculoskeletal: Denies: no symptoms, see HPI, back pain, gout, joint pain, joint swelling, muscle pain, muscle stiffness, other Skin: Denies: no symptoms, see HPI, rash, change in color, change in hair/nails , dryness, lesions, other Psychiatric: Denies: no symptoms, see HPI, prior hx, anxiety, depressed feelings, emotional problems, SI, HI, hallucinations, other Neurological: Denies: no symptoms, see HPI, headache, numbness, paresthesia, seizure, tingling, tremors, focal weakness, syncope, dizziness, other Endocrine: Denies: no symptoms, see HPI, excessive sweating, flushing, intolerance to temperature, increased thirst, increased urine, unexplained weight loss, other Hematologic/Lymphatic: Denies: no symptoms, see HPI, anemia, blood clots, easy bleeding, easy bruising, swollen glands, diathesis, other Physical Exam General Appearance: no apparent distress, alert HEENT: normocephalic, atraumatic Neck: supple Respiratory/Chest: lungs clear, normal breath sounds, no respiratory distress Cardiovascular/Chest: normal rate, regular rhythm Abdomen: soft Neurologic: alert, oriented x 3 Last 24 Hour Vital Signs Date Time Temp Pulse Resp B/P (MAP) Pulse Ox O2 Delivery O2 Flow Rate FiO2 04/18/20 12:00 98.6 119 19 143/96 (112) 100 04/18/20 12:00 Room Air 04/18/20 12:00 121 04/18/20 11:00 115 17 137/91 (106) 100 04/18/20 10:00 115 17 138/89 (105) 100 04/18/20 09:00 114 15 100 04/18/20 08:00 115 17 96 04/18/20 08:00 115 04/18/20 08:00 Room Air 04/18/20 07:00 98.6 113 15 153/92 (112) 100 04/18/20 07:00 113 15 153/92 (112) 100 04/18/20 06:00 109 21 151/96 (114) 100 04/18/20 05:15 Room Air 04/18/20 05:00 98.9 110 20 145/90 (108) 100 04/18/20 04:36 Room Air 04/18/20 04:30 98.4 71 16 108/77 98 Room Air 04/18/20 04:00 98.4 71 16 108/77 98 Room Air 04/18/20 00:00 98.4 94 16 117/69 98 Room Air 04/17/20 23:30 97.5 04/17/20 21:15 98.4 109 16 111/77 98 Room Air 04/17/20 19:35 98.2 122 17 102/71 98 Room Air 04/17/20 15:26 98.2 102 17 118/82 97 Room Air 04/17/20 13:33 98.0 103 19 120/88 98 Room Air 04/17/20 13:27 97.7 109 19 125/91 (102) 98 Room Air Intake and Output 04/17/20 04/18/20 19:00 07:00 Intake Total 2005 ml Output Total 200 ml Balance 2005 ml -200 ml IV Total 2005 ml Output Urine Total 200 ml # Voids 2 # Bowel Movements 1 Laboratory Tests Test 04/17/20 13:50 04/17/20 14:06 04/17/20 20:40 04/18/20 04:00 White Blood Count 7.8 K/UL (4.8-10.8) 9.4 K/UL (4.8-10.8) Red Blood Count 4.67 M/UL (4.70-6.10) L 4.36 M/UL (4.70-6.10) L Hemoglobin 14.2 G/DL (14.2-18.0) 13.5 G/DL (14.2-18.0) L Hematocrit 40.1 % (42.0-52.0) L 36.7 % (42.0-52.0) L Mean Corpuscular Volume 86 FL (80-99) 84 FL (80-99) Mean Corpuscular Hemoglobin 30.5 PG (27.0-31.0) 31.1 PG (27.0-31.0) H Mean Corpuscular Hemoglobin Concent 35.5 G/DL (32.0-36.0) 36.9 G/DL (32.0-36.0) H Red Cell Distribution Width 11.3 % (11.6-14.8) L 11.3 % (11.6-14.8) L Platelet Count 376 K/UL (150-450) 378 K/UL (150-450) Mean Platelet Volume 5.1 FL (6.5-10.1) L 4.8 FL (6.5-10.1) L Neutrophils (%) (Auto) 78.4 % (45.0-75.0) H 80.4 % (45.0-75.0) H Lymphocytes (%) (Auto) 13.5 % (20.0-45.0) L 13.3 % (20.0-45.0) L Monocytes (%) (Auto) 5.4 % (1.0-10.0) 3.9 % (1.0-10.0) Eosinophils (%) (Auto) 0.3 % (0.0-3.0) 1.2 % (0.0-3.0) Basophils (%) (Auto) 2.5 % (0.0-2.0) H 1.3 % (0.0-2.0) Sodium Level 121 MMOL/L (136-145) L 134 MMOL/L (136-145) #L 134 MMOL/L (136-145) L Potassium Level 5.7 MMOL/L (3.5-5.1) H 4.0 MMOL/L (3.5-5.1) 4.5 MMOL/L (3.5-5.1) Chloride Level 83 MMOL/L (98-107) L 100 MMOL/L (98-107) 99 MMOL/L (98-107) Carbon Dioxide Level 20 MMOL/L (21-32) L 24 MMOL/L (21-32) 25 MMOL/L (21-32) Anion Gap 18 mmol/L (5-15) H 10 mmol/L (5-15) 11 mmol/L (5-15) Blood Urea Nitrogen 47 mg/dL (7-18) H 35 mg/dL (7-18) H 31 mg/dL (7-18) H Creatinine 1.9 MG/DL (0.55-1.30) H 1.6 MG/DL (0.55-1.30) H 1.3 MG/DL (0.55-1.30) Estimat Glomerular Filtration Rate 45.2 mL/min (>60) 55.0 mL/min (>60) > 60 mL/min (>60) Glucose Level 805 MG/DL (74-106) *H 415 MG/DL (74-106) #H 443 MG/DL (74-106) H Hemoglobin A1c 13.5 % (4.3-6.0) H Calcium Level 9.6 MG/DL (8.5-10.1) 8.5 MG/DL (8.5-10.1) 8.9 MG/DL (8.5-10.1) Magnesium Level 2.3 MG/DL (1.8-2.4) Total Bilirubin 0.6 MG/DL (0.2-1.0) 0.3 MG/DL (0.2-1.0) Aspartate Amino Transf (AST/SGOT) 10 U/L (15-37) L 20 U/L (15-37) Alanine Aminotransferase (ALT/SGPT) 24 U/L (12-78) 14 U/L (12-78) Alkaline Phosphatase 88 U/L (46-116) 81 U/L (46-116) Total Protein 7.2 G/DL (6.4-8.2) 6.7 G/DL (6.4-8.2) Albumin 3.3 G/DL (3.4-5.0) L 3.1 G/DL (3.4-5.0) L Globulin 3.9 g/dL 3.6 g/dL Albumin/Globulin Ratio 0.8 (1.0-2.7) L 0.9 (1.0-2.7) L Acetone Level Positive-small (NEGATIVE) Urine Color Pale yellow Urine Appearance Clear Urine pH 5 (4.5-8.0) Urine Specific [place] 1.010 (1.005-1.035) Urine Protein Negative (NEGATIVE) Urine Glucose (UA) 4+ (NEGATIVE) H Urine Ketones 3+ (NEGATIVE) H Urine Blood Negative (NEGATIVE) Urine Nitrite Negative (NEGATIVE) Urine Bilirubin Negative (NEGATIVE) Urine Urobilinogen Normal MG/DL (0.0-1.0) Urine Leukocyte Esterase Negative (NEGATIVE) Urine Opiates Screen Negative (NEGATIVE) Urine Barbiturates Screen Negative (NEGATIVE) Phencyclidine (PCP) Screen Negative (NEGATIVE) Urine Amphetamines Screen Negative (NEGATIVE) Urine Benzodiazepines Screen Negative (NEGATIVE) Urine Cocaine Screen Negative (NEGATIVE) Urine Marijuana (THC) Screen Negative (NEGATIVE) HIV (1&2) Antibody Rapid Negative (NEGATIVE) Test 04/18/20 11:40 Urine Color Pending Urine Appearance Pending Urine pH Pending Urine Specific [place] Pending Urine Protein Pending Urine Glucose (UA) Pending Urine Ketones Pending Urine Blood Pending Urine Nitrite Pending Urine Bilirubin Pending Urine Urobilinogen Pending Urine Leukocyte Esterase Pending Height (Feet): 5 Height (Inches): 7.00 Weight (Pounds): 99 Medications Current Medications Medications (Trade) Dose Ordered Sig/Alejandra Route PRN Reason Start Time Stop Time Status Last Admin Dose Admin Acetaminophen (Tylenol) 650 mg Q4H PRN ORAL FEVER/Pain Scale 1-3 04/17/20 19:30 05/17/20 19:29 Al Hydroxide/Mg Hydroxide (Mylanta II) 30 ml Q6H PRN ORAL GI UPSET 04/17/20 19:30 05/17/20 19:29 Bisacodyl (Dulcolax) 10 mg DAILYPRN PRN RECTAL Constipation 04/17/20 19:30 07/16/20 19:29 Dextrose (Dextrose 50%) 25 ml Q30M PRN IV Hypoglycemia 04/18/20 08:15 07/17/20 08:14 Dextrose (Dextrose 50%) 50 ml Q30M PRN IV Hypoglycemia 04/18/20 08:15 07/17/20 08:14 Diphenhydramine HCl (Benadryl) 25 mg Q6H PRN ORAL Itching/Pruritis 04/17/20 19:30 05/17/20 19:29 Docusate Sodium (Colace) 100 mg EVERY 12 HOURS ORAL 04/18/20 09:00 05/18/20 08:59 Famotidine (Pepcid) 20 mg DAILY ORAL 04/18/20 09:00 07/17/20 08:59 Heparin Sodium (Porcine) (Heparin 5000 units/ml) 5,000 units EVERY 12 HOURS SUBQ 04/18/20 09:00 06/02/20 08:59 Insulin Aspart (NovoLOG) BEFORE MEALS AND HS SUBQ 04/18/20 09:00 07/17/20 08:59 04/18/20 12:00 Insulin Aspart (NovoLOG) 12 units NOVOTIAC SUBQ 04/18/20 09:00 07/17/20 08:59 04/18/20 12:02 Insulin Detemir (Levemir) 30 units Q12HR SUBQ 04/18/20 09:00 07/17/20 08:59 04/18/20 09:00 Magnesium Hydroxide (Mom) 30 ml HSPRN PRN ORAL Constipation 04/17/20 21:00 05/17/20 20:59 Ondansetron HCl (Zofran) 4 mg Q6H PRN IVP Nausea & Vomiting 04/17/20 19:30 05/17/20 19:29 Pantoprazole (Protonix) 40 mg DAILY ORAL 04/18/20 09:00 05/18/20 08:59 Polyethylene Glycol (Miralax) 17 gm DAILYPRN PRN ORAL Constipation 04/17/20 19:30 05/17/20 19:29 Assessment/Plan Problem List: (1) Diabetes mellitus out of control ICD Codes: E11.65 - Type 2 diabetes mellitus with hyperglycemia SNOMED: 44565509, 639151627 (2) DKA (diabetic ketoacidoses) ICD Codes: E11.10 - Type 2 diabetes mellitus with ketoacidosis without coma SNOMED: 190452223, [id number] Status: stable Assessment/Plan: Mr. Cifuentes is a 54 year old male with hx of DM1, here with DKA and failure to thrive. #DM1 #Diabetic ketoacidosis - resolved #Anion gap metabolic acidosis - resolved #Failure to thrive -endocrinology consult appreciated. -s/p insulin gtt -> SQ insulin. Trnasfer out of the ICU. -continue fluids -BMP checks. anion gap resolved -diabetic diet -diabetic teaching. -SW/CM to arrange for home disposition given failure to thrive. Time spent on encounter, 72 minutes, >50% on counseling and coordination of care. d/w ICU staff, RN, consultants. Extra 36 minutes spent on chart review of EMR records, including physician documentation, meds, labs, imaging studies. Time of encounter doesn't reflect time of service. Dandre Christiansen MD Apr 18, 2020 12:47
--- NOTE | 2020-04-18 13:01 | Consultation ---
History of Present Illness General Chief Complaint: Abnormal Labs Reason for Consultation: [place], hyponatremia Present Illness HPI Mr. Cifuentes is a 54 year old male with DM1, presenting via 911 after collapsing at 711, did not lose consciousness. He tells me he recently became "blind," due to DM, and couldn't see well so he didn't inject himself insulin. He lives by himself and obviously needs a lot of assistance, and is getting some help via a community resource. He has family in the area and seems to be alienated. Currently, his main concern is hunger and wants to be fed. denies any other symptoms such as fever, chills, chest pain, SOB, cough, abdominal pain. Allergies: Coded Allergies: No Known Allergies (Unverified , 01/18/20) Patient History Healthcare decision maker Resuscitation status Advanced Directive on File Review of Systems All Other Systems: negative except mentioned in HPI Physical Exam General Appearance: WD/WN, no apparent distress Lines, tubes and drains: peripheral HEENT: normocephalic, atraumatic Neck: non-tender, normal alignment, supple Respiratory/Chest: chest wall non-tender, lungs clear Abdomen: normal bowel sounds, non tender, soft Extremities: normal range of motion, non-tender Skin Exam: normal pigmentation Neurologic: alert, oriented x 3 Last 24 Hour Vital Signs Date Time Temp Pulse Resp B/P (MAP) Pulse Ox O2 Delivery O2 Flow Rate FiO2 04/18/20 12:00 98.6 119 19 143/96 (112) 100 04/18/20 12:00 Room Air 04/18/20 12:00 121 04/18/20 11:00 115 17 137/91 (106) 100 04/18/20 10:00 115 17 138/89 (105) 100 04/18/20 09:00 114 15 100 04/18/20 08:00 115 17 96 04/18/20 08:00 115 04/18/20 08:00 Room Air 04/18/20 07:00 98.6 113 15 153/92 (112) 100 04/18/20 07:00 113 15 153/92 (112) 100 04/18/20 06:00 109 21 151/96 (114) 100 04/18/20 05:15 Room Air 04/18/20 05:00 98.9 110 20 145/90 (108) 100 04/18/20 04:36 Room Air 04/18/20 04:30 98.4 71 16 108/77 98 Room Air 04/18/20 04:00 98.4 71 16 108/77 98 Room Air 04/18/20 00:00 98.4 94 16 117/69 98 Room Air 04/17/20 23:30 97.5 04/17/20 21:15 98.4 109 16 111/77 98 Room Air 04/17/20 19:35 98.2 122 17 102/71 98 Room Air 04/17/20 15:26 98.2 102 17 118/82 97 Room Air 04/17/20 13:33 98.0 103 19 120/88 98 Room Air 04/17/20 13:27 97.7 109 19 125/91 (102) 98 Room Air Intake and Output 04/17/20 04/18/20 19:00 07:00 Intake Total 2005 ml Output Total 200 ml Balance 2005 ml -200 ml IV Total 2005 ml Output Urine Total 200 ml # Voids 2 # Bowel Movements 1 Laboratory Tests Test 04/17/20 13:50 04/17/20 14:06 04/17/20 20:40 04/18/20 04:00 White Blood Count 7.8 K/UL (4.8-10.8) 9.4 K/UL (4.8-10.8) Red Blood Count 4.67 M/UL (4.70-6.10) L 4.36 M/UL (4.70-6.10) L Hemoglobin 14.2 G/DL (14.2-18.0) 13.5 G/DL (14.2-18.0) L Hematocrit 40.1 % (42.0-52.0) L 36.7 % (42.0-52.0) L Mean Corpuscular Volume 86 FL (80-99) 84 FL (80-99) Mean Corpuscular Hemoglobin 30.5 PG (27.0-31.0) 31.1 PG (27.0-31.0) H Mean Corpuscular Hemoglobin Concent 35.5 G/DL (32.0-36.0) 36.9 G/DL (32.0-36.0) H Red Cell Distribution Width 11.3 % (11.6-14.8) L 11.3 % (11.6-14.8) L Platelet Count 376 K/UL (150-450) 378 K/UL (150-450) Mean Platelet Volume 5.1 FL (6.5-10.1) L 4.8 FL (6.5-10.1) L Neutrophils (%) (Auto) 78.4 % (45.0-75.0) H 80.4 % (45.0-75.0) H Lymphocytes (%) (Auto) 13.5 % (20.0-45.0) L 13.3 % (20.0-45.0) L Monocytes (%) (Auto) 5.4 % (1.0-10.0) 3.9 % (1.0-10.0) Eosinophils (%) (Auto) 0.3 % (0.0-3.0) 1.2 % (0.0-3.0) Basophils (%) (Auto) 2.5 % (0.0-2.0) H 1.3 % (0.0-2.0) Sodium Level 121 MMOL/L (136-145) L 134 MMOL/L (136-145) #L 134 MMOL/L (136-145) L Potassium Level 5.7 MMOL/L (3.5-5.1) H 4.0 MMOL/L (3.5-5.1) 4.5 MMOL/L (3.5-5.1) Chloride Level 83 MMOL/L (98-107) L 100 MMOL/L (98-107) 99 MMOL/L (98-107) Carbon Dioxide Level 20 MMOL/L (21-32) L 24 MMOL/L (21-32) 25 MMOL/L (21-32) Anion Gap 18 mmol/L (5-15) H 10 mmol/L (5-15) 11 mmol/L (5-15) Blood Urea Nitrogen 47 mg/dL (7-18) H 35 mg/dL (7-18) H 31 mg/dL (7-18) H Creatinine 1.9 MG/DL (0.55-1.30) H 1.6 MG/DL (0.55-1.30) H 1.3 MG/DL (0.55-1.30) Estimat Glomerular Filtration Rate 45.2 mL/min (>60) 55.0 mL/min (>60) > 60 mL/min (>60) Glucose Level 805 MG/DL (74-106) *H 415 MG/DL (74-106) #H 443 MG/DL (74-106) H Hemoglobin A1c 13.5 % (4.3-6.0) H Calcium Level 9.6 MG/DL (8.5-10.1) 8.5 MG/DL (8.5-10.1) 8.9 MG/DL (8.5-10.1) Magnesium Level 2.3 MG/DL (1.8-2.4) Total Bilirubin 0.6 MG/DL (0.2-1.0) 0.3 MG/DL (0.2-1.0) Aspartate Amino Transf (AST/SGOT) 10 U/L (15-37) L 20 U/L (15-37) Alanine Aminotransferase (ALT/SGPT) 24 U/L (12-78) 14 U/L (12-78) Alkaline Phosphatase 88 U/L (46-116) 81 U/L (46-116) Total Protein 7.2 G/DL (6.4-8.2) 6.7 G/DL (6.4-8.2) Albumin 3.3 G/DL (3.4-5.0) L 3.1 G/DL (3.4-5.0) L Globulin 3.9 g/dL 3.6 g/dL Albumin/Globulin Ratio 0.8 (1.0-2.7) L 0.9 (1.0-2.7) L Acetone Level Positive-small (NEGATIVE) Urine Color Pale yellow Urine Appearance Clear Urine pH 5 (4.5-8.0) Urine Specific [place] 1.010 (1.005-1.035) Urine Protein Negative (NEGATIVE) Urine Glucose (UA) 4+ (NEGATIVE) H Urine Ketones 3+ (NEGATIVE) H Urine Blood Negative (NEGATIVE) Urine Nitrite Negative (NEGATIVE) Urine Bilirubin Negative (NEGATIVE) Urine Urobilinogen Normal MG/DL (0.0-1.0) Urine Leukocyte Esterase Negative (NEGATIVE) Urine Opiates Screen Negative (NEGATIVE) Urine Barbiturates Screen Negative (NEGATIVE) Phencyclidine (PCP) Screen Negative (NEGATIVE) Urine Amphetamines Screen Negative (NEGATIVE) Urine Benzodiazepines Screen Negative (NEGATIVE) Urine Cocaine Screen Negative (NEGATIVE) Urine Marijuana (THC) Screen Negative (NEGATIVE) HIV (1&2) Antibody Rapid Negative (NEGATIVE) Test 04/18/20 11:40 Urine Color Pending Urine Appearance Pending Urine pH Pending Urine Specific [place] Pending Urine Protein Pending Urine Glucose (UA) Pending Urine Ketones Pending Urine Blood Pending Urine Nitrite Pending Urine Bilirubin Pending Urine Urobilinogen Pending Urine Leukocyte Esterase Pending Height (Feet): 5 Height (Inches): 7.00 Weight (Pounds): 99 Medications Current Medications Medications (Trade) Dose Ordered Sig/Alejandra Route PRN Reason Start Time Stop Time Status Last Admin Dose Admin Acetaminophen (Tylenol) 650 mg Q4H PRN ORAL FEVER/Pain Scale 1-3 04/17/20 19:30 05/17/20 19:29 Al Hydroxide/Mg Hydroxide (Mylanta II) 30 ml Q6H PRN ORAL GI UPSET 04/17/20 19:30 05/17/20 19:29 Bisacodyl (Dulcolax) 10 mg DAILYPRN PRN RECTAL Constipation 04/17/20 19:30 07/16/20 19:29 Dextrose (Dextrose 50%) 25 ml Q30M PRN IV Hypoglycemia 04/18/20 08:15 07/17/20 08:14 Dextrose (Dextrose 50%) 50 ml Q30M PRN IV Hypoglycemia 04/18/20 08:15 07/17/20 08:14 Diphenhydramine HCl (Benadryl) 25 mg Q6H PRN ORAL Itching/Pruritis 04/17/20 19:30 05/17/20 19:29 Docusate Sodium (Colace) 100 mg EVERY 12 HOURS ORAL 04/18/20 09:00 05/18/20 08:59 Famotidine (Pepcid) 20 mg DAILY ORAL 04/18/20 09:00 07/17/20 08:59 Heparin Sodium (Porcine) (Heparin 5000 units/ml) 5,000 units EVERY 12 HOURS SUBQ 04/18/20 09:00 06/02/20 08:59 Insulin Aspart (NovoLOG) BEFORE MEALS AND HS SUBQ 04/18/20 09:00 07/17/20 08:59 04/18/20 12:00 Insulin Aspart (NovoLOG) 12 units NOVOTIAC SUBQ 04/18/20 09:00 07/17/20 08:59 04/18/20 12:02 Insulin Detemir (Levemir) 30 units Q12HR SUBQ 04/18/20 09:00 07/17/20 08:59 04/18/20 09:00 Magnesium Hydroxide (Mom) 30 ml HSPRN PRN ORAL Constipation 04/17/20 21:00 05/17/20 20:59 Ondansetron HCl (Zofran) 4 mg Q6H PRN IVP Nausea & Vomiting 04/17/20 19:30 05/17/20 19:29 Pantoprazole (Protonix) 40 mg DAILY ORAL 04/18/20 09:00 05/18/20 08:59 Polyethylene Glycol (Miralax) 17 gm DAILYPRN PRN ORAL Constipation 04/17/20 19:30 05/17/20 19:29 Sodium Chloride 1,000 ml @ 150 mls/hr Q6H40M IV 04/18/20 13:00 05/18/20 12:59 Assessment/Plan Diagnosis [place] I: #pseudohyponatremia due to hypergycemia #[place] #DM - poorly controlled #HTN #HLD - icu admission - insulin drip - IVF - monitor mag, phos and BMP - avoid nephrotoxins - monitor Sodium - endocrine Lori Aguilar M.D. Apr 18, 2020 13:01
[2020-04-18 13:04] LABS: APPEARANCE,URINE CLEAR; BILIRUBIN, URINE NEGATIVE (NEGATIVE); COLOR,URINE PALE YELLOW; GLUCOSE, URINE (UA) 4+ (NEGATIVE); KETONES,URINE NEGATIVE (NEGATIVE); LEUKOCYTE ESTERASE ,URINE NEGATIVE (NEGATIVE); NITRITE,URINE NEGATIVE (NEGATIVE); PH,URINE 5 (4.5-8.0); PROTEIN,URINE NEGATIVE (NEGATIVE); UROBILINOGEN,URINE NORMAL MG/DL (0.0-1.0)
--- NOTE | 2020-04-18 16:00 | Consultation ---
DATE OF CONSULTATION: 04/18/2020 PULMONARY/ICU CONSULTATION CONSULTING PHYSICIAN: Star Baxter MD. HISTORY OF PRESENT ILLNESS: This is a 54-year-old male who presented to the hospital with hyperglycemia. Patient is a known diabetic. Patient admits to having dietary noncompliance. PAST MEDICAL HISTORY: Notable for COPD, diabetes mellitus, asthma, hypertension. HOME MEDICATIONS: Reviewed and reconciled in chart. REVIEW OF SYSTEMS: Denies any headaches, hematemesis, melena, hematochezia, night sweats, or weight loss. PHYSICAL EXAMINATION: GENERAL: Reveals a 54-year-old male. HEENT: Unremarkable. LUNGS: Clear breath sounds bilaterally. ABDOMEN: Soft. EXTREMITIES: There is no edema. VITAL SIGNS: Blood pressure 130/90, heart rate 102, respirations 18, he is afebrile, O2 saturation 100% on room air. LABORATORY DATA: Lab testing shows normal CBC with a hemoglobin 13.5, platelet count is normal. Glucose earlier was at 805, now is 443, sodium 134, potassium is normal. Toxicology positive for acetones. Urinalysis negative. IMAGING STUDIES: X-ray chest was obtained about a month ago, which was negative. IMPRESSION: 1. Diabetic ketoacidosis with high anion gap. 2. Dietary noncompliance. 3. Diabetes mellitus. 4. Hypertension. 5. COPD. DISCUSSION: Admit to the hospital. Keep in ICU. Insulin drip. We will need to resume home medications. Advised dietary compliance. DVT prophylaxis. GI prophylaxis. We will follow as jack prizer. Star Baxter M.D. DR: MADI JOB#: [id number] CC:
--- NOTE | 2020-04-18 23:00 | Consultation ---
DATE OF CONSULTATION: 04/18/2020 ENDOCRINOLOGY CONSULTATION CONSULTING PHYSICIAN: Keenan Burnham MD. REFERRING PHYSICIAN: Kanu Hoskins MD. REASON FOR CONSULTATION: Management of diabetes. HISTORY OF PRESENT ILLNESS: The patient is a 54-year-old male, well known to me due to recent admission to [facility]. He was at [facility] last month with glucose of 953. During this stay, he was treated with Levemir and NovoLog insulin. The patient presented to the hospital with uncontrolled glucose. The patient, upon arrival to the hospital, he was eating candy. He did not have any complaint of chest pain. Labs on presentation revealed a glucose of 805, sodium 121, potassium 5.7, chloride 83, bicarb 20, anion gap of 18. Anion gap closed this morning. He had hemoglobin A1c of 13.5. PAST MEDICAL HISTORY: 1. COPD. 2. Hypertension. 3. Diabetes, out of control. ALLERGIES TO MEDICATIONS: None. SOCIAL HISTORY: No smoking, alcohol, or drug use. REVIEW OF SYSTEMS: A 12-point review of systems was performed. Pertinent positives and negatives were mentioned in history of present illness. FAMILY HISTORY: Noncontributory. LABORATORY DATA: Labs discussed in history of present illness. PHYSICAL EXAMINATION: VITAL SIGNS: The patient's blood pressure is 141/99, heart rate 92, respiratory rate 14 HEENT: Pupils are equal and reactive to light. Sclerae anicteric. NECK: No JVD. No thyromegaly. No bruit. LUNGS: Clear. HEART: Regular rate and rhythm. ABDOMEN: Positive bowel sounds. Soft. EXTREMITIES: No clubbing, cyanosis, or edema. DIAGNOSES: DKA, resolved. Noncompliance with medication, noncompliance with insulin, noncompliance with diet. PLAN: Discontinue insulin drip. Start Levemir 30 units b.i.d. Start NovoLog 12 units before each meal. Start NovoLog sliding scale before meals and at bedtime. Further adjustment according to blood glucose values. Thank you, Dr. Hoskins, for the courtesy of this consultation. Keenan Burnham M.D. DR: BRIAN JOB#: [id number] CC: JANAE
--- NOTE | 2020-05-12 20:47 | Discharge Summary ---
Discharge Summary Hospital Course Date of Admission Apr 17, 2020 at 18:20 Date of Discharge Apr 18, 2020 at 17:15 Admitting Diagnosis Hyperglycemia, Hyponatremia HPI Bassam Cifuentes is a 54 year old male who was admitted on Apr 17, 2020 at 18:20 for Hyperglycemia, Hypoatremia Consultations ICU/pulmonology, nephrology, endocrinology Hospital Course Mr. Cifuentes is a 54 year old male with hx of DM1, here with DKA and failure to thrive. Per patient, he has been having worsening vision from diabetes and was unable to take insulin. lives by himself with inadequate support. He left AMA. #DM1 #Diabetic ketoacidosis - resolved #Anion gap metabolic acidosis - resolved #Failure to thrive -endocrinology consult appreciated. -s/p insulin gtt -> SQ insulin. Trnasfer out of the ICU. -continue fluids -BMP checks. anion gap resolved -diabetic diet -diabetic teaching. -SW/CM to arrange for home disposition given failure to thrive. Time spent on encounter, 72 minutes, >50% on counseling and coordination of care. d/w ICU staff, RN, consultants. Extra 36 minutes spent on chart review of EMR records, including physician documentation, meds, labs, imaging studies. Time of encounter doesn't reflect time of service. Discharge Condition Upon Discharge: stable Discharge Disposition Patient was discharged to home (AMA) Discharge Diagnoses: (1) Chest pain (2) Diabetes mellitus out of control Dandre Christiansen MD May 12, 2020 20:46
== END 2020-04-18 17:15 | disposition left against medical advice (07) | DRG 420 ==
LOC: EDBD 13:33 → EMR 13:48 → ICU 18:20 → MERGE 18:20 → EDBEDREQ 04-18 01:32
DX: E10.10 Type 1 diabetes mellitus with ketoacidosis without coma (principal); N17.9 Acute kidney failure, unspecified; R62.7 Adult failure to thrive; Z68.1 Body mass index [BMI] 19.9 or less, adult; E87.1 Hypo-osmolality and hyponatremia; Z91.11 Patient's noncompliance with dietary regimen; I10 Essential (primary) hypertension; J44.9 Chronic obstructive pulmonary disease, unspecified; Z91.14 Patient's other noncompliance with medication regimen
CPT/HCPCS: 36415; 80048; 80053; 80307; 81003; 82009; 82962; 83036; 83735; 85025; 86703; 87081; 87491; 87590; 93005; 96361; 96374; 96376; 99291; J1815; J7030; S5561

== ENCOUNTER 2020-06-24 13:53 | Observation (INO) | payer OTHER ==
[~2020-06-24] VITALS: Ht 167.6 cm; Wt 55.3 kg
[2020-06-24 14:25] VITALS: BP 127/87
--- NOTE | 2020-06-24 14:30 | Emergency Room Report ---
History of Present Illness General Chief Complaint: Abdominal Pain Source: Patient Present Illness HPI Patient is a 54-year-old transgender male presents after increased lower abdominal pain and abdominal distention. Reports having increased dysuria. States has prior history of type 2 diabetes for which he takes metformin as well as insulin. Reports being legally blind. Patient states that he had been having multiple episodes of diarrheal stools. Denies any definite hematemesis. Increased urinary frequency. Had been having increased lower abdominal pain. Denies any current smoking but states has been a smoker in the past. Reports having some chest discomfort. 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 Patient History Past Medical History: see triage record Reviewed Nursing Documentation: PMH: Agreed; PSxH: Agreed Nursing Documentation-PMH Hx Cardiac Problems: Yes Hx Hypertension: Yes Hx Asthma: Yes Hx COPD: Yes Hx Diabetes: Yes Hx Cancer: No Hx Gastrointestinal Problems: No Hx Neurological Problems: No Review of Systems All Other Systems: negative except mentioned in HPI Physical Exam Vital Signs Date Time Temp Pulse Resp B/P (MAP) Pulse Ox O2 Delivery O2 Flow Rate FiO2 06/24/20 14:10 97.9 121 20 111/64 (80) 96 Room Air Sp02 EP Interpretation: reviewed, normal General Appearance: normal inspection, alert, Chronically Ill Head: atraumatic ENT: normal ENT inspection, hearing grossly normal, normal voice Neck: normal inspection, full range of motion, supple, no bony tend Respiratory: normal inspection, lungs clear, normal breath sounds, no respiratory distress, no retraction, no wheezing Cardiovascular #1: no edema, tachycardia Gastrointestinal: soft, no guarding, no hernia, tenderness - Pubic tenderness, distention Genitourinary: no CVA tenderness Musculoskeletal: normal inspection, back normal, normal range of motion Neurologic: alert, motor strength/tone normal, resident care assistant III-XII nml as tested, oriented x3, responsive, speech normal, normal inspection Psychiatric: normal inspection, judgement/insight normal, mood/affect normal Skin: no rash Medical Decision Making Diagnostic Impression: Primary Impression: Chest pain Additional Impressions: Diabetes mellitus out of control Bowel obstruction ER Course Patient presented for chest pain. Differential diagnosis include was not limited to myocardial infarction, gastroenteritis, coronavirus infection, diabetic ketoacidosis, among others. Because of complexity of patient's case laboratory tests and imaging studies were ordered.Patient noted be initially tachycardic with heart rate of 118. He was started on IV fluids as well as to medications. CT imaging was ordered due to patient's suprapubic abdominal pain.CT imaging showed some equivocal changes in the epigastric area concerning for possible early volvulus versus obstruction. Patient was discussed with for inpatient management. Labs Test 06/24/20 14:30 White Blood Count 5.3 K/UL (4.8-10.8) Red Blood Count 5.12 M/UL (4.70-6.10) Hemoglobin 15.1 G/DL (14.2-18.0) Hematocrit 44.7 % (42.0-52.0) Mean Corpuscular Volume 87 FL (80-99) Mean Corpuscular Hemoglobin 29.5 PG (27.0-31.0) Mean Corpuscular Hemoglobin Concent 33.8 G/DL (32.0-36.0) Red Cell Distribution Width 10.9 % (11.6-14.8) Platelet Count 374 K/UL (150-450) Mean Platelet Volume 5.7 FL (6.5-10.1) Neutrophils (%) (Auto) 65.0 % (45.0-75.0) Lymphocytes (%) (Auto) 24.8 % (20.0-45.0) Monocytes (%) (Auto) 5.5 % (1.0-10.0) Eosinophils (%) (Auto) 1.5 % (0.0-3.0) Basophils (%) (Auto) 3.2 % (0.0-2.0) Urine Color Yellow Urine Appearance Clear Urine pH 6.0 (4.5-8.0) Urine Specific [place] 1.005 (1.005-1.035) Urine Protein Negative (NEGATIVE) Urine Glucose (UA) 4+ (NEGATIVE) Urine Ketones Negative (NEGATIVE) Urine Blood Negative (NEGATIVE) Urine Nitrite Negative (NEGATIVE) Urine Bilirubin Negative (NEGATIVE) Urine Urobilinogen Normal MG/DL (0.0-1.0) Urine Leukocyte Esterase 1+ (NEGATIVE) Urine RBC 0-2 /HPF (0 - 0) Urine WBC 0-2 /HPF (0 - 0) Urine Squamous Epithelial Cells Occasional /LPF Urine Bacteria Few /HPF (NONE) Urine Yeast Few /HPF (NONE) Sodium Level 130 MMOL/L (136-145) Potassium Level 3.0 MMOL/L (3.5-5.1) Chloride Level 91 MMOL/L (98-107) Carbon Dioxide Level 31 MMOL/L (21-32) Anion Gap 8 mmol/L (5-15) Blood Urea Nitrogen 11 mg/dL (7-18) Creatinine 1.3 MG/DL (0.55-1.30) Estimat Glomerular Filtration Rate > 60 mL/min (>60) Glucose Level 641 MG/DL (74-106) Calcium Level 9.1 MG/DL (8.5-10.1) Total Bilirubin 0.5 MG/DL (0.2-1.0) Aspartate Amino Transf (AST/SGOT) 12 U/L (15-37) Alanine Aminotransferase (ALT/SGPT) 13 U/L (12-78) Alkaline Phosphatase 85 U/L (46-116) Troponin I 0.013 ng/mL (0.000-0.056) Total Protein 7.3 G/DL (6.4-8.2) Albumin 3.3 G/DL (3.4-5.0) Globulin 4.0 g/dL Albumin/Globulin Ratio 0.8 (1.0-2.7) Lipase 227 U/L (73-393) Urine Opiates Screen Negative (NEGATIVE) Urine Barbiturates Screen Negative (NEGATIVE) Phencyclidine (PCP) Screen Negative (NEGATIVE) Urine Amphetamines Screen Negative (NEGATIVE) Urine Benzodiazepines Screen Negative (NEGATIVE) Urine Cocaine Screen Negative (NEGATIVE) Urine Marijuana (THC) Screen Negative (NEGATIVE) EKG Diagnostic Results Rate: tachycardiac - 104 Rhythm: NSR ST Segments: no acute changes Last Vital Signs Date Time Temp Pulse Resp B/P (MAP) Pulse Ox O2 Delivery O2 Flow Rate FiO2 06/24/20 14:25 97.9 120 19 127/87 99 Room Air Status: unchanged Disposition: ADMITTED INPATIENT Condition: Stable Vishnu Phelan MD Jun 24, 2020 14:30
[2020-06-24] MEDS ORDERED: Morphine Sulfate 2mg/ml Inj(IV/IM USE ONLY) IVP ONE (14:45)
[2020-06-24 14:54] LABS: BASOPHILS % (AUTO) 3.2 % (0.0-2.0); EOSINOPHILS % (AUTO) 1.5 % (0.0-3.0); HEMATOCRIT 44.7 % (42.0-52.0); HEMOGLOBIN 15.1 G/DL (14.2-18.0); LYMPHOCYTES % (AUTO) 24.8 % (20.0-45.0); MEAN CORPUSCULAR VOLUME 87 FL (80-99); MONOCYTES % (AUTO) 5.5 % (1.0-10.0); PLATELET COUNT 374 K/UL (150-450); RED BLOOD COUNT 5.12 M/UL (4.70-6.10); RED CELL DISTRIBUTION WIDTH 10.9 % (11.6-14.8); WHITE BLOOD COUNT 5.3 K/UL (4.8-10.8)
[2020-06-24 15:08] LABS: ALANINE AMINOTRANSFERASE 13 U/L (12-78); ALBUMIN 3.3 G/DL (3.4-5.0); ALBUMIN/GLOBULIN RATIO 0.8 (1.0-2.7); ALKALINE PHOSPHATASE 85 U/L (46-116); ANION GAP 8 mmol/L (5-15); ASPARTATE AMINO TRANSFERASE 12 U/L (15-37); BILIRUBIN,TOTAL 0.5 MG/DL (0.2-1.0); BLOOD UREA NITROGEN 11 mg/dL (7-18); CALCIUM 9.1 MG/DL (8.5-10.1); CARBON DIOXIDE 31 MMOL/L (21-32); CHLORIDE 91 MMOL/L (98-107); CREATININE 1.3 MG/DL (0.55-1.30); SODIUM 130 MMOL/L (136-145)
[2020-06-24 15:14] LABS: APPEARANCE,URINE CLEAR; COLOR,URINE YELLOW
[2020-06-24 15:15] LABS: BILIRUBIN, URINE NEGATIVE (NEGATIVE); GLUCOSE, URINE (UA) 4+ (NEGATIVE); KETONES,URINE NEGATIVE (NEGATIVE); LEUKOCYTE ESTERASE ,URINE 1+ (NEGATIVE); NITRITE,URINE NEGATIVE (NEGATIVE); PROTEIN,URINE NEGATIVE (NEGATIVE); UROBILINOGEN,URINE NORMAL MG/DL (0.0-1.0)
[2020-06-24] MEDS ORDERED: Insulin Human Regular 100units/ml 3ml IV ONE (15:15)
[2020-06-24] MEDS ORDERED: Insulin Human Regular 100units/ml 3ml ONE (15:16)
--- NOTE | 2020-06-24 15:22 | Diagnostic Imaging Report ---
Indication: Abdominal pain Technique: Noncontrast CT of the abdomen and pelvis utilizing automated exposure control. Axial, sagittal and coronal reformats presented. CT dose: Total DLP 134.3 mGycm; CTDI vol 2.8 mGy Comparison: None Findings: Please note that evaluation of the abdominal and pelvic viscera and vascular structures is limited without the use of intravenous and oral contrast. Within these limitations the following observations are made: Minimal dependent atelectatic changes noted in the lung bases. Partially visualized heart normal in size. No pericardial effusion. Noncontrast evaluation of the liver, spleen, adrenal glands and pancreas is grossly unremarkable. Question noncalcified gallstones within the gallbladder. No CT evidence to suggest acute cholecystitis. No biliary ductal dilatation. Punctate nonobstructing stones in the left kidney. No evidence of hydronephrosis bilaterally. Bladder is mildly distended with mild wall thickening. There is no evidence to suggest small bowel obstruction. Appendix is not definitively visualized however there are no focal inflammatory changes in the right lower quadrant suggest acute appendicitis. In the epigastric region there is a structure which may represent borderline dilated loops of small bowel or area of twisting/torsion in the mesentery. No associated significant distention of small bowel loops. No pneumatosis intestinalis or free intraperitoneal air. Abdominal aorta normal in caliber abdominal aorta is normal in caliber. No acute osseous abnormality identified. IMPRESSION: Limited exam without intravenous and oral contrast. Within these limitations: * Rounded structure in the epigastrium which may be related to significant thickening of the wall the distal stomach. Additional considerations include some mildly dilated loops small bowel. Possibility of a volvulus or evolving obstruction not excluded although there is no definite evidence of bowel obstruction at this time.Correlation with clinical findings recommended. Repeat exam with oral contrast would be helpful for further characterization. Consider follow-up endoscopy. * Possible noncalcified gallstones. No CT evidence suggest acute cholecystitis. The CT scanner at [facility] is accredited by the [employer] and the scans are performed using protocols designed to limit radiation exposure to as low as reasonably achievable to attain images of sufficient resolution adequate for diagnostic evaluation.
[2020-06-24 16:25] VITALS: BP 129/86
[2020-06-24 20:00] VITALS: BP 147/102
[2020-06-24] MEDS: NovoLOG Insulin Flexpen SUBQ SCH (20:08)
[2020-06-25] VITALS: BP 125/84
[2020-06-25 04:00] VITALS: BP 159/109
[2020-06-25] MEDS ORDERED: Sodium Chloride for KCL Premix X 4hrs IV SCH (05:00)
[2020-06-25] MEDS ORDERED: HYDROcodone/Acetamin 5/325 tab ORAL PRN ×4 (05:45→16:00)
[2020-06-25] MEDS: NovoLOG Insulin Flexpen SUBQ SCH ×4 (07:00→21:00)
[2020-06-25 08:00] VITALS: BP 152/101
[2020-06-25] MEDS ORDERED: Aspirin Baby 81mg ORAL SCH (09:00)
--- NOTE | 2020-06-25 10:00 | History and Physical Report ---
DATE OF ADMISSION: 06/24/2020 REASON FOR ADMISSION: Abdominal pain. HISTORY OF PRESENT ILLNESS: This is a 54-year-old male, transgender presents with increased abdominal pain, abdominal distention, also increased dysuria. The patient was admitted and underwent a CT of the abdomen with concern for possible volvulus. The patient has been having increased lower abdominal pain. Denies any drug use. The patient was admitted and placed NPO. Cardiology and GI called to evaluate. PAST MEDICAL HISTORY: Patient is transgender. He is legally blind. He has history of diabetes. The patient also has history of hypertension, questionable history of asthma. MEDICATIONS: Reviewed. ALLERGIES: Reviewed. PHYSICAL EXAMINATION: Refused. VITAL SIGNS: Blood pressure elevated 159/109, heart rate 101, temperature 97.8. IMPRESSION: Chest pain, diabetes, possible volvulus, questionable history of asthma. RECOMMENDATION: NPO for now. Patient is threatening to sign AMA. No prior medications on file. Blood sugar is poorly controlled. We need to assess and interrogate further. For now, maintain IV hydration and sliding scale and likely will need to start a therapy if patient remains compliant. Ruslan Vernon M.D. DR: MADYSON JOB#: [id number] CC:
--- NOTE | 2020-06-25 18:31 | Consultation ---
History of Present Illness General Date patient seen: Jun 25, 2020 Reason for Hospitalization: Abdominal Pain Present Illness HPI 54-year-old transgender male presents after increased lower abdominal pain and abdominal distention. Reports having increased dysuria. States has prior history of type 2 diabetes for which he takes metformin as well as insulin. Reports being legally blind. Patient states that he had been having multiple episodes of diarrheal stools. Denies any definite hematemesis. Increased urinary frequency. Had been having increased lower abdominal pain. Denies any current smoking but states has been a smoker in the past. Reports having some chest discomfort. admitted for care and management. On admission CT described abnormality in the gastric lumen considerations for obstruction versus volvulus surgery called eval and assist with care. Allergies: Coded Allergies: No Known Allergies (Unverified , 01/18/20) COVID-19 Screening Contact w/high risk pt: No Recent Travel to affected area: No Experienced COVID-19 symptoms?: No COVID-19 symptoms experienced: Fever (T>100.4F or >38C), Cough Patient History History Provided By: Patient, Medical Record, PMD Healthcare decision maker N Resuscitation status Advanced Directive on File Past Medical/Surgical History Past Medical/Surgical History: (1) Chest pain (2) Diabetes mellitus out of control (3) UTI (urinary tract infection) (4) DM (diabetes mellitus), secondary uncontrolled Review of Systems Review of Symptoms General ROS: no weight loss or fever Psychological ROS: no depression or mood changes, no memory loss Ophthalmic ROS: no visual changes or eye irritation ENT ROS: no nasal congestion, hearing loss, dizziness Allergy and Immunology ROS: no allergic symptoms or urticaria Hematological and Lymphatic ROS: no swollen glands, unusual bleeding or bruising Endocrine ROS: no polyuria, polydipsia, weight changes, temperature intolerance Respiratory ROS: no cough, shortness of breath, or wheezing Cardiovascular ROS: no chest pain or dyspnea on exertion Gastrointestinal ROS: denies abdominal pain, bright red blood in stool. Musculoskeletal ROS: no myalgias or arthralgias Neurological ROS: no TIA or stroke symptoms Dermatological ROS: no new or changing skin lesions, rashes or pruritis Physical Exam Physical Exam General appearance: alert, cooperative, no distress, appears stated age Head: Normocephalic, without obvious abnormality, atraumatic Eyes: conjunctivae/corneas clear. PERRL, EOM's intact. Fundi benign Throat: Lips, mucosa, and tongue normal. Teeth and gums normal Neck: supple, symmetrical, trachea midline, no adenopathy, thyroid: not enlarged, symmetric, no tenderness/mass/nodules, no carotid bruit and no JVD Lungs: clear to auscultation bilaterally Heart: regular rate and rhythm, S1, S2 normal, no murmur, click, rub or gallop Abdomen: soft, non-tender. Bowel sounds normal. No masses, no organomegaly Extremities: extremities normal, atraumatic, no cyanosis or edema Pulses: 2+ and symmetric Skin: Skin color, texture, turgor normal. No rashes or lesions Neurologic: Grossly normal Last 24 Hour Vital Signs Date Time Temp Pulse Resp B/P (MAP) Pulse Ox O2 Delivery O2 Flow Rate FiO2 06/25/20 12:00 113 06/25/20 09:00 Nasal Cannula 2.0 06/25/20 08:00 101 06/25/20 08:00 98.4 97 20 152/101 (118) 100 06/25/20 04:00 97.8 101 19 159/109 (126) 99 06/25/20 04:00 101 06/25/20 00:00 97.9 103 19 125/84 (98) 99 06/25/20 00:00 108 06/24/20 21:00 Nasal Cannula 2.0 06/24/20 20:00 107 06/24/20 20:00 97.9 107 20 147/102 (117) 99 06/24/20 18:50 Room Air Intake and Output 06/24/20 06/25/20 19:00 07:00 Intake Total 1000 ml Output Total 400 ml Balance 1000 ml -400 ml Intake IV Total 1000 ml Output Urine Total 400 ml # Voids 1 Laboratory Tests Test 06/24/20 18:36 06/24/20 20:06 06/25/20 04:09 06/25/20 06:33 POC Whole Blood Glucose 321 MG/DL (74-106) H Pending 437 MG/DL (74-106) H 384 MG/DL (74-106) H Test 06/25/20 17:11 POC Whole Blood Glucose 310 MG/DL (74-106) H Height (Feet): 5 Height (Inches): 6.00 Weight (Pounds): 122 Medications Current Medications Medications (Trade) Dose Ordered Sig/Alejandra Route PRN Reason Start Time Stop Time Status Last Admin Dose Admin Acetaminophen/ Hydrocodone Bitart ([place] 5/325) 1 tab Q6H PRN ORAL Moderate Pain (Pain Scale 4-6) 06/25/20 16:00 07/02/20 15:59 Acetaminophen/ Hydrocodone Bitart ([place] 5/325) 2 tab Q6H PRN ORAL Severe Pain (Pain Scale 7-10) 06/25/20 16:00 07/02/20 15:59 Aspirin (ASA) 81 mg DAILY ORAL 06/26/20 09:00 08/09/20 08:59 Dextrose (Dextrose 50%) 25 ml Q30M PRN IV Hypoglycemia 06/25/20 15:45 09/22/20 19:44 Dextrose (Dextrose 50%) 50 ml Q30M PRN IV Hypoglycemia 06/25/20 15:45 09/22/20 19:44 Insulin Aspart (NovoLOG) BEFORE MEALS AND HS SUBQ 06/25/20 16:30 09/22/20 20:59 Assessment/Plan Problem List: (1) Bowel obstruction Assessment & Plan: Patient complaining of vague epigastric discomfort abdominal pain chest pain. No nausea vomiting fever chills currently. States she is having bowel movements of diarrhea. States she is tolerating diet. CT was reviewed and minded identify borderline dilated loops small bowel in the upper GI portion. Considerations for even possible volvulus noted. On examination abdomen soft nontender nondistended bowel sounds noted GI function otherwise normal currently Discussed patient at bedside recommend evaluation with oral contrast. Patient states that she has an appointment on Saturday morning for her eyes and surgery scheduled with her eye surgeon. She states that she does not want to wait here to have any further testing done and is considering leaving AGAINST MEDICAL ADVICE. I explained to her that given these findings as not recommended and will order testing but if patient so chooses to leave AGAINST MEDICAL ADVICE that is her decision We will follow the recommendations May participate patient's care please note that evaluation of the abdominal and pelvic viscera and vascular structures is limited without the use of intravenous and oral contrast. Within these limitations the following observations are made: Minimal dependent atelectatic changes noted in the lung bases. Partially visualized heart normal in size. No pericardial effusion. Noncontrast evaluation of the liver, spleen, adrenal glands and pancreas is grossly unremarkable. Question noncalcified gallstones within the gallbladder. No CT evidence to suggest acute cholecystitis. No biliary ductal dilatation. Punctate nonobstructing stones in the left kidney. No evidence of hydronephrosis bilaterally. Bladder is mildly distended with mild wall thickening. There is no evidence to suggest small bowel obstruction. Appendix is not definitively visualized however there are no focal inflammatory changes in the right lower quadrant suggest acute appendicitis. In the epigastric region there is a structure which may represent borderline dilated loops of small bowel or area of twisting/torsion in the mesentery. No associated significant distention of small bowel loops. No pneumatosis intestinalis or free intraperitoneal air. Abdominal aorta normal in caliber abdominal aorta is normal in caliber. No acute osseous abnormality identified. IMPRESSION: Limited exam without intravenous and oral contrast. Within these limitations: * Rounded structure in the epigastrium which may be related to significant thickening of the wall the distal stomach. Additional considerations include some mildly dilated loops small bowel. Possibility of a volvulus or evolving obstruction not excluded although there is no definite evidence of bowel obstruction at this time.Correlation with clinical findings recommended. Repeat exam with oral contrast would be helpful for further characterization. Consider follow-up endoscopy. * Possible noncalcified gallstones. No CT evidence suggest acute cholecystitis. The CT scanner at [facility] is accredited by the [employer] and the scans are performed using protocols designed to limit radiation exposure to as low as reasonably achievable to attain images of sufficient resolution adequate for diagnostic evaluation. ICD Codes: K56.609 - Unspecified intestinal obstruction, unspecified as to partial versus complete obstruction SNOMED: 89496944 (2) Chest pain ICD Codes: R07.9 - Chest pain, unspecified SNOMED: 92224657 (3) Diabetes mellitus out of control ICD Codes: E11.65 - Type 2 diabetes mellitus with hyperglycemia SNOMED: 92919965, 233923298 (4) UTI (urinary tract infection) ICD Codes: N39.0 - Urinary tract infection, site not specified SNOMED: 39576656 (5) DM (diabetes mellitus), secondary uncontrolled ICD Codes: E13.65 - Other specified diabetes mellitus with hyperglycemia SNOMED: 4753512, 368212940 Jovi Phillips Jun 25, 2020 18:31
[2020-06-26 04:00] VITALS: BP 124/64
[2020-06-26] MEDS: NovoLOG Insulin Flexpen SUBQ SCH (05:53)
[2020-06-26] MEDS ORDERED: Aspirin Baby 81mg ORAL SCH (09:00)
--- NOTE | 2020-06-26 09:39 | General Progress Note ---
Assessment/Plan Assessment/Plan: Chest pain, diabetes, possible volvulus, questionable history of asthma. 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
--- NOTE | 2020-06-26 10:57 | Surgery Progress Note ---
Surgery Progress Note Subjective Additional Comments patient non complaint with care plan wants diet advanced despite discussion of care plan and rational plans to leave [facility] Objective Last 24 Hour Vital Signs Date Time Temp Pulse Resp B/P (MAP) Pulse Ox O2 Delivery O2 Flow Rate FiO2 06/26/20 04:00 98.0 104 20 124/64 (84) 100 06/25/20 21:00 Room Air 06/25/20 21:00 Room Air 06/25/20 12:00 113 I&O Intake and Output 06/25/20 06/26/20 19:00 07:00 Output Total 300 ml 1100 ml Balance -300 ml -1100 ml Output Urine Total 300 ml 1100 ml # Bowel Movements 1 1 Cardiovascular: RSR Respiratory: clear, decreased breath sounds Abdomen: soft, non-tender, present bowel sounds, non-distended Extremities: no edema, no tenderness, no cyanosis Laboratory Tests Test 06/25/20 17:11 06/26/20 04:01 POC Whole Blood Glucose 310 MG/DL (74-106) H 408 MG/DL (74-106) H Plan Problems: (1) Bowel obstruction Assessment & Plan: Patient complaining of vague epigastric discomfort abdominal pain chest pain. No nausea vomiting fever chills currently. States she is having bowel movements of diarrhea. States she is tolerating diet. CT was reviewed and minded identify borderline dilated loops small bowel in the upper GI portion. Considerations for even possible volvulus noted. On examination abdomen soft nontender nondistended bowel sounds noted GI function otherwise normal currently Discussed patient at bedside recommend evaluation with oral contrast. Patient states that she has an appointment on Saturday morning for her eyes and surgery scheduled with her eye surgeon. She states that she does not want to wait here to have any further testing done and is considering leaving AGAINST MEDICAL ADVICE. I explained to her that given these findings as not recommended and will order testing but if patient so chooses to leave AGAINST MEDICAL ADVICE that is her decision We will follow the recommendations May participate patient's care please note that evaluation of the abdominal and pelvic viscera and vascular structures is limited without the use of intravenous and oral contrast. Within these limitations the following observations are made: Minimal dependent atelectatic changes noted in the lung bases. Partially visualized heart normal in size. No pericardial effusion. Noncontrast evaluation of the liver, spleen, adrenal glands and pancreas is grossly unremarkable. Question noncalcified gallstones within the gallbladder. No CT evidence to suggest acute cholecystitis. No biliary ductal dilatation. Punctate nonobstructing stones in the left kidney. No evidence of hydronephrosis bilaterally. Bladder is mildly distended with mild wall thickening. There is no evidence to suggest small bowel obstruction. Appendix is not definitively visualized however there are no focal inflammatory changes in the right lower quadrant suggest acute appendicitis. In the epigastric region there is a structure which may represent borderline dilated loops of small bowel or area of twisting/torsion in the mesentery. No associated significant distention of small bowel loops. No pneumatosis intestinalis or free intraperitoneal air. Abdominal aorta normal in caliber abdominal aorta is normal in caliber. No acute osseous abnormality identified. IMPRESSION: Limited exam without intravenous and oral contrast. Within these limitations: * Rounded structure in the epigastrium which may be related to significant thickening of the wall the distal stomach. Additional considerations include some mildly dilated loops small bowel. Possibility of a volvulus or evolving obstruction not excluded although there is no definite evidence of bowel obstruction at this time.Correlation with clinical findings recommended. Repeat exam with oral contrast would be helpful for further characterization. Consider follow-up endoscopy. * Possible noncalcified gallstones. No CT evidence suggest acute cholecystitis. The CT scanner at [facility] is accredited by the [employer] and the scans are performed using protocols designed to limit radiation exposure to as low as reasonably achievable to attain images of sufficient resolution adequate for diagnostic evaluation. (2) Chest pain (3) Diabetes mellitus out of control (4) UTI (urinary tract infection) (5) DM (diabetes mellitus), secondary uncontrolled Jovi Phillips Jun 26, 2020 10:57
== END 2020-06-26 10:20 | disposition left against medical advice (07) ==
LOC: EMR 14:43 → 2E 16:35 → EDBEDREQ 17:32 → 3E 06-25 15:29
DX: R07.9 Chest pain, unspecified (principal); K56.609 Unspecified intestinal obstruction, unspecified as to partial versus complete obstruction; R10.9 Unspecified abdominal pain; R14.0 Abdominal distension (gaseous); R30.0 Dysuria; H54.8 Legal blindness, as defined in USA; I10 Essential (primary) hypertension; Z87.891 Personal history of nicotine dependence; N20.0 Calculus of kidney; N39.0 Urinary tract infection, site not specified; E13.65 Other specified diabetes mellitus with hyperglycemia
CPT/HCPCS: 36415; 74176; 80053; 80307; 81003; 82962; 83690; 84484; 85025; 86850; 86900; 86901; 87086; 87324; 93005; 96361; 96374; 96375; J1815; J2270; J2405; J3480; J7040; Z7502; Z7514; 99285; G0378; J8499